=== PATIENT | female | born 1965 | race Caucasian/White ===

== ENCOUNTER 2024-05-02 09:17 | Emergency (ER) | payer OTHER, SELFPAY ==
[2024-05-02 09:18] VITALS: BP 163/108; PULSE 109; RESP 18; TEMP 35.8; O2SAT 96; BMI 19.9
[2024-05-02 09:20] VITALS: O2SAT 96
--- NOTE | 2024-05-02 09:30 | ED.VIS.DYS ---
HPI History of Present Illness Chief Complaint: Shortness of Breath Informant: patient Onset/Context/Timing Onset: Weeks (1) Context: gradual Timing: Continuous Quality: Positive for Dyspnea on exertion Worsened by: Exertion Relieved by: Rest Associated Symptoms cough, post nasal drip, ear pain and clear sputum; Negative for rhinorrhea, fever, sore throat, chills, sweats, white sputum, yellow sputum or green sputum Chest Pain: Positive for - (Heaviness over the substernal area) Narrative Narrative: Patient presents with shortness of breath that has been getting worse over the past week. Patient states it is worse with any exertion. Patient states she has to stop and rest to catch her breath. Patient states her breathing does get better with resting. Patient admits to some heaviness in her chest when this occurs. Patient admits to a cough with some clear sputum production. Patient also admits to bilateral ear pain and popping. Patient also admits to some postnasal drainage. Patient denies any fevers or chills. Patient admits to some nausea but denies any vomiting. PE Risk Factors: Negative for Cancer, OCP + Smoking + > 35, Prior DVT or PE, Recent immobilization, Recent surgery or Recent travel [facility] Medical History no medical history no medical history Home Medications ?Medication ?Instructions ?Recorded ?Last Taken ?Type azithromycin 250 mg tablet 250 mg PO DAILY #4 TABLETS 05/02/24 Unknown Rx Allergy/AdvReac Type Severity Reaction Status Date / Time No Known Allergies Allergy Verified 05/02/24 09:18 Surgical History (Updated 05/02/24 @ 09:[address] Caleb Crockett DO) Hx of appendectomy History of hysterectomy Hx of tonsillectomy Social History Smoking Status: Current some day smoker tobacco type: cigarettes ROS ROS ED Constitutional Constitutional ED: Denies chills or fever(s) Eyes Eyes: Denies blurry vision or change in vision ENT ENT ED: Denies rhinorrhea or sore throat Cardiovascular Cardiovascular: Reports chest pain; Denies palpitations Respiratory/Chest Respiratory/Chest: Reports cough and dyspnea Gastrointestinal Gastrointestinal: Reports nausea; Denies vomiting Genitourinary Genitourinary ED: Denies dysuria or hematuria Musculoskeletal Musculoskeletal: Reports neck pain; Denies back pain Integumentary Denies abscess or rash Neurologic Neurologic: Reports headache(s); Denies weakness Allergic/Immunologic Allergic/Immunologic ED: Denies mouth swelling or urticaria EXAM Physical Exam Const Vital Signs: 05/02/24 09:18 05/02/24 09:18 05/02/24 09:40 Temperature 96.5 F L Temperature Source Temporal Pulse Rate 109 H Respiratory Rate 18 Respiratory Effort Short of Breath Respiratory Depth Normal Respiratory Pattern Normal Blood Pressure 163/108 H Blood Pressure Mean 126 Pulse Ox 96 Oxygen Delivery Method Room Air Room Air 05/02/24 09:51 05/02/24 10:18 05/02/24 11:00 Temperature Temperature Source Pulse Rate 90 91 82 Respiratory Rate 18 21 H 22 H Respiratory Effort Respiratory Depth Respiratory Pattern Normal Blood Pressure 147/100 H 135/97 H Blood Pressure Mean 115 109 Pulse Ox 94 95 Oxygen Delivery Method Room Air Room Air Positive well nourished and well developed General Appearance ED: well developed and NAD HEENT Reports moist mucous membranes Neck supple and no JVD Resp normal respiratory effort and clear to auscultation bilaterally Cardio regular rate and regular rhythm GI non-tender and non-distended Palpation: soft Extremity normal to inspection General Extremety ED: Negative for edema or tenderness General Extremity: Negative for edema Neuro oriented x3, CN's II-XII intact bilaterally and no sensory deficits noted Sensorium / Orientation: alert Speech: speech normal Motor Exam: strength 5/5 throughout Psych mental status grossly normal Skin skin turgor normal MDM MDM MDM Narrative Medical decision making narrative: Differential diagnosis includes cardiac dysrhythmia, cardiac ischemia, pneumonia, pneumothorax, pulmonary embolism, viral illness, and COPD. EKG will be obtained to assess for cardiac dysrhythmia and cardiac ischemia. Chest x-ray will be obtained to assess for pneumonia and pneumothorax. CBC will be obtained to assess for leukocytosis and anemia. Basic metabolic profile will be obtained to assess for electrolyte abnormality and renal function. High-sensitivity troponin will be obtained to assess for cardiac ischemia. D-dimer will be obtained to assess for pulmonary embolism. Lab Data Attestation: I reviewed the patient's lab results. Lab results narrative: CBC was reviewed and was within normal limits. Basic metabolic profile was reviewed and was within normal limits. High-sensitivity troponin was reviewed and was normal at 52. D-dimer was reviewed and was elevated at 12.67. Labs: Laboratory Results - last 24 hr 05/02/24 09:30 WBC 8.1 RBC 5.16 Hgb 14.4 Hct 43.6 MCV 84.5 MCH 27.9 MCHC 33.0 RDW Std Deviation 38.6 RDW Coeff of Chaitanya 12.5 Plt Count 285 MPV 11.0 Immature Gran % (Auto) 0.200 Neut % (Auto) 84.7 H Lymph % (Auto) 7.9 L Waldo % (Auto) 6.4 Eos % (Auto) 0.1 Baso % (Auto) 0.7 Absolute Neuts (auto) 6.8 Absolute Lymphs (auto) 0.64 L Nucleated RBC % 0 D-Dimer Quant (PE/DVT) 12.67 H* Sodium 139 Potassium 4.0 Chloride 111 H Carbon Dioxide 21.0 Anion Gap 7 BUN 17 Creatinine 0.87 Estim Creat Clear Calc 59.98 Est GFR (MDRD) Af Amer 87 Est GFR (MDRD) Non-Af 72 BUN/Creatinine Ratio 19.6 Glucose 128 H Calcium 8.9 Troponin I High Sens 52 Radiography Chest X-Ray - ED: 1 View, Read by ED Physician, Read by Radiologist and Right Infiltrate CTA PE Study: No Evidence of PE and No Evidence of Dissection Diagnostic Testing: Clinical Impression(s) from Imaging Studies Chest X-Ray 05/02/24 09:42 IMPRESSION: Right lower lobe infiltrate with increased markings in the right upper lobe. Prominent esvin. Radiographic follow-up recommended. Electronically Signed: Frank Walter MD at 9:53 EDT , Chest CTA 05/02/24 10:15 IMPRESSION: No evidence of pulmonary embolism. Right lower lobe mass as well as dense consolidation in the right lower lobe with increased markings in the right upper lobe. Neoplastic process should should be ruled out. Small gallstones. Electronically Signed: Frank Walter MD at 11:12 EDT , Portable 1 view chest x-ray was obtained. On my independent interpretation, lung aggarwal showed a right lower lobe infiltrate and increased markings in the right upper lobe. There is normal cardiac silhouette. Bony thorax is normal. Radiologist also interpreted the x-ray and agrees. CTA of the chest was obtained. There is no evidence of pulmonary embolism. There is a right lower lobe mass and consolidation in the right lower lobe and there are increased markings in the right upper lobe. This was interpreted by the radiologist and was also independently reviewed by myself. EKG Initial EKG: Attestation: I personally reviewed and interpreted this EKG as follows: Interpretation: Sinus Rhythm (94) and No Acute Injury Pattern Comments: EKG was obtained. On my independent interpretation, it showed a normal sinus rhythm with a rate of 94. [place] interval, QRS interval, and QTc intervals were all normal. [place] was normal. There are no acute ST or T wave changes. Prior EKG tracings: not available for review Prior: No Prior Management Discussion w/another healthcare provider: Airborne Sensor Specialist (Dr. Maldonado from pulmonology) Treatment and Re-Evaluation :: Smoking cessation was discussed. Patient was given a DuoNeb aerosol here. Patient was given a dose of Rocephin and Zithromax here. Patient was advised of her findings. Case was discussed with Dr. Maldonado from pulmonology. He will follow-up with the patient as an outpatient. Patient was given his contact information and was instructed to call his office to schedule an appointment. Patient was given a prescription for Zithromax. Patient understood and was agreeable with the plan. All questions were answered. Discharge Plan Triage Chief Complaint: Shortness of Breath ED Provider: Caleb Crockett Dx/Rx/DC Orders Clinical Impression: Right lower lobe lung mass, Pneumonia Instructions: ED Pneumonia (Adult) Prescriptions: New azithromycin 250 mg tablet 250 mg PO DAILY Qty: 4 0RF Primary Care Provider: Care Physician,No Primary Referrals: Rafael Maldonado, [Med Staff - Active Staff] - 5-7 Days (Call today to schedule an appointment) NOT,DEFINED [Non-Staff] - Print Language: Yakut Disposition Disposition: Home, Self Care
--- NOTE | 2024-05-02 09:39 | EKG12_ITS ---
Test Reason : SOB Blood Pressure : / mmHG Vent. Rate : 094 BPM Atrial Rate : 094 BPM P-R Int : 150 ms QRS Dur : 072 ms QT Int : 364 ms P-R-T Axes : 069 082 003 degrees QTc Int : 455 ms Normal sinus rhythm Normal ECG Confirmed by Skip Brumfield ([id number]), international editorial producer OMAR MCKEON ([id number]) on 05/03/2024 8:04:49 AM Referred By: Confirmed By:Skip Brumfield
--- NOTE | 2024-05-02 09:42 | RAD_ITS ---
STUDY: X-RAY CHEST REASON FOR EXAM: Female, 58 years old. Shortness of breath and chest tightness. TECHNIQUE: Single AP portable view of the chest. COMPARISON: None. FINDINGS: EKG electrodes are seen. Right lower lobe infiltration. Mild increased markings in the right upper lobe. Prominence of the esvin bilaterally. There is no demonstrated pleural abnormality. Normal size heart. Normal visualized pulmonary arteries. Normal visualized aortic arch and descending thoracic aorta. There are degenerative changes of the visualized thoracic spine. Normal visualized ribs, clavicles, and shoulders. There is no demonstrated abnormality of the visualized soft tissue structures of the upper abdomen. RAD/Chest 1 View (Portable) IMPRESSION: Right lower lobe infiltrate with increased markings in the right upper lobe. Prominent esvin. Radiographic follow-up recommended. Electronically Signed: Frank Walter MD at 9:53 EDT ,
[2024-05-02] MEDS: Ipratropium/Albuterol Sulfate 3 ML AMPUL.NEB INHALATION (09:50)
[2024-05-02 09:51] VITALS: PULSE 90; RESP 18
[2024-05-02 09:51] LABS: Absolute Lymphocyte Count 0.64 X10^3/uL (0.83-4.51); Absolute Neutrophil Count 6.8 X10^3/uL (2.0-7.7); Basophil# 0.06 X10^3/uL; Basophil% 0.7 % (0-1); Eosinophil# 0.01 X10^3/uL; Eosinophils% 0.1 % (0-5); Hematocrit 43.6 % (37-47); Hemoglobin 14.4 g/dL (12.0-15.0); Lymphocyte # 0.64 X10^3/ul (0.83-4.51); Lymphocyte % 7.9 % (19-41); Mean Corpuscular Hgb 27.9 pg (27.0-32.0); Mean Corpuscular Volume 84.5 fL (81-99); Monocyte# 0.52 X10^3/uL; Monocyte% 6.4 % (0-10); NRBC Flagged by Analyzer 0 % (0-5); Neutrophil # 6.83 X10^3/uL (2.7-7.7); Neutrophil % 84.7 % (47-70); Platelet Count 285 K/mm3 (150-450); RBC Distribution Width CV 12.5 % (11.6-14.6); RBC Distribution Width SD 38.6 fl (35.1-43.9); Red Blood Count 5.16 M/mm3 (4.2-5.4); White Blood Count 8.1 K/mm3 (4.4-11.0)
[2024-05-02] MEDS: Aspirin 81 MG TAB.CHEW 324 MG PO (09:56)
[2024-05-02 10:03] LABS: Anion Gap 7 (5-15); BUN 17 mg/dL (7-18); BUN/Creat Ratio 19.6 RATIO (10-20); Calcium,Total 8.9 mg/dL (8.5-10.1); Chloride 111 mmol/L (98-107); Creatinine, Serum 0.87 mg/dL (0.55-1.02); EST Glomerular Filtration Rate 72 mL/min (>60); Est Glom Filt Rate - Afr Amer 87 mL/min (>60); Estimated Creatinine Clearance 59.98 ml/min; Glucose 128 mg/dL (74-106); Sodium Level 139 mmol/L (136-145); Troponin-I HS (w/2H Reflex) 52 pg/mL (3.0-54.0)
[2024-05-02 10:13] LABS: D-Dimer Quantitative (DVT/PE) 12.67 FEU/ug/m (0.27-0.49)
--- NOTE | 2024-05-02 10:15 | CT_ITS ---
STUDY: CTA CHEST REASON FOR EXAM: Female, 58 years old. Elevated D-dimer. Chest tightness and shortness of breath. RADIATION DOSAGE (If Supplied By Facility): CTDIvol = ( 4.35 ) mGy, DLP = ( 152.02 ) mGycm TECHNIQUE: The examination was performed with the intravenous administration of IV 100mL Isovue-370. Post-processing of the angiographic images was performed, with multiplanar reformation and 3D reconstruction. Individualized dose optimization techniques were used for this CT. COMPARISON: None. FINDINGS: Normal enhancement of the main pulmonary artery and right and left pulmonary arteries. Normal enhancement of the bilateral peripheral pulmonary arteries. There is no demonstrated pulmonary embolism. There is atherosclerotic calcification of the aortic arch with tortuosity. There is no demonstrated aortic dissection. Normal heart and pericardium. No significant coronary artery calcification seen. Normal mediastinum. Normal hilar regions. Normal visualized trachea and bronchi. There is elevation of the right hemidiaphragm. There is a 3.7 cm x 4.3 cm mass in the anterior aspect of the right lower lobe. There is also evidence of the dense consolidation in the right lower lobe. Mild degree of increased markings in the right upper lobe and right middle lobe. Normal chest wall structures. There are degenerative changes of thoracic spine. Multiple small gallstones. CT/CTA Chest W/WO Contrast IMPRESSION: No evidence of pulmonary embolism. Right lower lobe mass as well as dense consolidation in the right lower lobe with increased markings in the right upper lobe. Neoplastic process should should be ruled out. Small gallstones. Electronically Signed: Frank Walter MD at 11:12 EDT ,
[2024-05-02 10:18] VITALS: BP 147/100; PULSE 91; RESP 21; O2SAT 94
[2024-05-02] MEDS: Ceftriaxone 2 GM in 0.9% Normal Saline (50mL MB+) 50 ML IV (10:30)
[2024-05-02] MEDS: Azithromycin 500 MG in Dextrose 5%-Water (250mL Bag) 250 ML 250 MG IV (10:48)
[2024-05-02 11:00] VITALS: BP 135/97; PULSE 82; RESP 22; O2SAT 95
[2024-05-02 11:42] LABS: Reflex Troponin-HS? (from REC) Y
[2024-05-02 12:26] LABS: Troponin-I HS 64 pg/mL (3.0-54.0)
[2024-05-02 12:50] VITALS: BP 140/100; PULSE 87; RESP 18; O2SAT 93
== END 2024-05-02 12:57 | disposition home or self-care (01) ==
PROVIDERS: Emergency Provider Emergency Medicine; Visit Provider Emergency Medicine
DX: R06.02 Shortness of breath (principal); J18.9 Pneumonia, unspecified organism; F17.210 Nicotine dependence, cigarettes, uncomplicated; R91.8 Other nonspecific abnormal finding of lung field
CPT/HCPCS: 71045; 71275; 80048; 84484; 85025; 85379; 87040; 93005; 94640; 96365; 96368; 99284; Q9967; A4216; J0696

== ENCOUNTER → 2024-05-06 | Outpatient (CLI) | payer OTHER, SELFPAY ==
[2024-05-06 10:27] LABS: Platelet Count 325 K/mm3 (150-450)
[2024-05-06 10:42] LABS: International Normalized Ratio 1.2
== END | disposition home or self-care (01) ==
LOC: LAB 10:00
PROVIDERS: Referring Provider Nurse Practitioner Acute Care; Visit Provider Nurse Practitioner Acute Care
DX: I48.91 Unspecified atrial fibrillation (principal); R06.02 Shortness of breath
CPT/HCPCS: 36415; 85049; 85610; 85730

== ENCOUNTER 2024-05-10 12:48 | Inpatient (IN) | payer OTHER, SELFPAY ==
[2024-05-10] VITALS (18 sets, daily range): BP systolic 125–142; BP diastolic 76–101; PULSE 70–82; RESP 12–25; TEMP 36.4–37; O2SAT 92–98; BMI 19.4; BMI 19.9
--- NOTE | 2024-05-10 14:20 | ED.VIS.DYS ---
HPI History of Present Illness Chief Complaint: Shortness of Breath Informant: patient Narrative Narrative: Patient is a 58-year-old female presenting with pneumothorax after IR lung biopsy performed earlier today. I did monitor her pneumothorax is worsening so she is sent to the ER. She is 93% on room air does not normally wear any supplemental oxygen. She is currently on 2 L 95%. Denies any significant pain. Denies any sensation of shortness of breath. Biopsy was of the right lung and lower posterior approach was performed. Was recently admitted for pneumonia. [facility] Medical History Right lower lobe lung mass Home Medications ?Medication ?Instructions ?Recorded ?Last Taken ?Type albuterol sulfate 90 mcg/actuation 2 puff inhalation Q4H PRN 05/06/24 05/10/24 Rx aerosol inhaler (Ventolin HFA) SHORTNESS OF BREATH/WHEEZING #18 grams ibuprofen 200 mg tablet 400 mg PO Q6H PRN FEVER/PAIN 05/06/24 Unknown History levofloxacin 750 mg tablet 750 mg PO Q24H ANTIBIOTIC 05/10/24 05/10/24 History prednisone 10 mg tablet See Taper PO DAILY STEROID 05/10/24 05/10/24 History Allergy/AdvReac Type Severity Reaction Status Date / Time No Known Allergies Allergy Verified 05/10/24 09:10 Family History Mother Heart disease Father Heart disease Diabetes Surgical History Hx of appendectomy History of hysterectomy Hx of tonsillectomy Social History Smoking Status: Former smoker alcohol intake: never substance use type: does not use ROS ROS ED Constitutional Constitutional ED: Denies chills or fever(s) Cardiovascular Cardiovascular: Denies chest pain Respiratory/Chest Respiratory/Chest: Reports dyspnea; Denies cough Gastrointestinal Gastrointestinal: Denies nausea or vomiting Neurologic Neurologic: Denies headache(s) EXAM Physical Exam Const Vital Signs: 05/10/24 12:49 05/10/24 12:52 05/10/24 12:54 Temperature 97.9 F Temperature Source Temporal Pulse Rate 73 Respiratory Rate 17 Respiratory Effort Normal Non-Labored Respiratory Depth Normal Respiratory Pattern Normal Blood Pressure 125/80 H Blood Pressure Mean 95 Pulse Ox 93 Oxygen Delivery Method Room Air Room Air Oxygen Flow Rate (L/min) 05/10/24 13:41 05/10/24 13:42 05/10/24 14:23 Temperature Temperature Source Pulse Rate 78 72 74 Respiratory Rate 18 17 21 H Respiratory Effort Respiratory Depth Respiratory Pattern Blood Pressure 130/90 H 130/90 H 142/101 H Blood Pressure Mean 103 103 114 Pulse Ox 92 92 94 Oxygen Delivery Method Room Air Room Air Nasal Cannula Oxygen Flow Rate (L/min) 1 05/10/24 14:49 05/10/24 15:00 05/10/24 15:06 Temperature Temperature Source Pulse Rate 78 82 Respiratory Rate 25 H 18 Respiratory Effort Respiratory Depth Respiratory Pattern Blood Pressure 133/92 H 141/76 H Blood Pressure Mean 105 97 Pulse Ox 97 93 93 Oxygen Delivery Method Nasal Cannula Room Air Room Air Oxygen Flow Rate (L/min) 2 05/10/24 16:26 Temperature Temperature Source Pulse Rate 76 Respiratory Rate 12 Respiratory Effort Respiratory Depth Respiratory Pattern Blood Pressure 138/97 H Blood Pressure Mean 110 Pulse Ox 93 Oxygen Delivery Method Oxygen Flow Rate (L/min) Positive well nourished and well developed General Appearance ED: well developed Eyes PERRL and EOMs intact bilaterally Neck supple and no JVD Chest Wall Chest Narrative: No chest wall crepitus appreciated. Bandage of the right lower posterior back from biopsy sites, no active bleeding. Resp normal respiratory effort Resp Narrative: Diminished breath sounds on the right side Cardio regular rate and regular rhythm Extremity normal to inspection General Extremety ED: Negative for edema General Extremity: Negative for edema Neuro oriented x3 Sensorium / Orientation: alert Psych mental status grossly normal Skin no wounds and skin turgor normal MDM MDM MDM Narrative Medical decision making narrative: Patient is evaluated for iatrogenic pneumothorax. She is hemodynamically stable but is requiring some supplemental oxygen..Thor vent device placed for treatment of her pneumothorax. Patient tolerated procedure well with no immediate complications. Procedure performed by IR nurse practitioner under my direct supervision. On repeat chest x-ray patient has improvement of her pneumothorax but still present. She is ambulating goes down to 87%. Patient be admitted for further treatment and management of her pneumothorax. She is agreeable this plan of care. Case discussed with my physician, Dr. Wiseman. Radiography Diagnostic Testing: Clinical Impression(s) from Imaging Studies Chest X-Ray 05/10/24 15:10 IMPRESSION: Placement of right thoracostomy tube with decrease in right pneumothorax. No other change. Electronically Signed: Andrei Riley MD at 15:29 EDT , Procedures Other Procedures Procedure(s): Chest tube placement Patient placed on 3 to 4 L of oxygen and continuous telemetry monitoring. She is given 2.5 mg IV diazepam for comfort. Procedure performed by Azalea Ruiz nurse practitioner under my direct supervision. [employer] vent pneumothorax kit utilized. Area anesthetized with 1% lidocaine without epinephrine. Once adequate analgesia was achieved, #11 blade used to make a 1 cm vertical incision over the second/third intercostal space of the midclavicular line. Out trocar advancement does meet some resistance. Hemostats then used to get through to the pleural cavity. After that the trocar placed without any difficulty. Once in the pleural cavity and confirmed with diaphragm movement trocars removed and catheter was advanced further. Patient tolerated procedure well with no immediate complication. Discharge Plan Triage Chief Complaint: Shortness of Breath ED Provider: Meena Mckay Dx/Rx/DC Orders Clinical Impression: Pneumothorax after biopsy, Shortness of breath, Right lower lobe lung mass Primary Care Provider: Care Physician,No Primary Disposition Disposition: Acute Care Hospital [facility] Discharge Date/Time: 05/10/24 17:04
[2024-05-10] MEDS: Midazolam 2 MG/2 ML Syringe IV (14:31)
[2024-05-10] MEDS: Lidocaine 1% (20 ml mdv) 20 ML Vial 10 ML INFILT (14:35)
--- NOTE | 2024-05-10 15:10 | RAD_ITS ---
STUDY: X-RAY CHEST REASON FOR EXAM: Female, 58 years old. Placement of thoracostomy tube. TECHNIQUE: Single frontal view of the chest. COMPARISON: Earlier in the day. FINDINGS: Right thoracostomy tube placed with substantial decrease in pneumothorax which now is approximately 9 mm of separation of visceral and parietal pleura in the right apex. Stable chest otherwise with no new or acute findings No abnormality of the visualized soft tissue structures of the upper abdomen. RAD/Chest 1 View (Portable) IMPRESSION: Placement of right thoracostomy tube with decrease in right pneumothorax. No other change. Electronically Signed: Andrei Riley MD at 15:29 EDT ,
--- NOTE | 2024-05-10 16:25 | HP.PCM.HOS_ITS ---
HPI - General General Date of Admission: 05/10/24 Date of Service: 05/10/24 Chief Complaint: R sided pneumonthorax HPI Narrative ARYA HUGGINS, is a 58-year-old female with a right lower lobe lung mass who presented to [facility] ED 05/10/2024 due to a pneumothorax after CT guided biopsy. She was initially monitored however pneumothorax worsen so she was sent to ED where she had thoracostomy tube placed, she was 93% on room air and 95% on 2 L. Given patient had chest tube placement hospitalist contacted for admission. Patient reports that she has had shortness of breath since when she initially presented to the ED, was given azithromycin but that did not significantly help, patient was switched to levofloxacin and prednisone which she started Thursday and has been feeling slightly better, does note some shortness of breath on ambulation. Denies any other specific complaints [facility] Medical History (Updated 05/10/24 @ 16:[address] Dimple Wiseman MD) Right lower lobe lung mass Home Medications ?Medication ?Instructions ?Recorded ?Last Taken ?Type albuterol sulfate 90 mcg/actuation 2 puff inhalation Q4H PRN 05/06/24 05/10/24 Rx aerosol inhaler (Ventolin HFA) SHORTNESS OF BREATH/WHEEZING #18 grams ibuprofen 200 mg tablet 400 mg PO Q6H PRN FEVER/PAIN 05/06/24 Unknown History levofloxacin 750 mg tablet 750 mg PO Q24H ANTIBIOTIC 05/10/24 05/10/24 History prednisone 10 mg tablet See Taper PO DAILY STEROID 05/10/24 05/10/24 History Allergy/AdvReac Type Severity Reaction Status Date / Time No Known Allergies Allergy Verified 05/10/24 09:10 Family History Mother Heart disease Father Heart disease Diabetes Surgical History History of hysterectomy Hx of appendectomy Hx of tonsillectomy Social History Smoking Status: Former smoker alcohol intake: never substance use type: does not use ROS ROS Narrative General: Denies fever/chills HENT: Denies headache, denies stuffy nose, denies sore throat EYES: Denies changes in vision Resp: Denies cough, shortness of breath on ambulation Cardiac: Denies chest pain GI: Denies abdominal pain, denies changes in bowel, denies nausea/vomiting : Denies changes in urination Extremity: Denies swelling MSK: Denies weakness Neuro: Denies any numbness/tingling Heme: Denies any bleeding or bruising Skin: Denies rashes Psychiatric: No complaints voiced Vital Signs Vital Signs Vital Signs: 05/10/24 12:49 05/10/24 12:52 05/10/24 12:54 Temperature 97.9 F Temperature Source Temporal Pulse Rate 73 Respiratory Rate 17 Respiratory Effort Normal Non-Labored Respiratory Depth Normal Respiratory Pattern Normal Blood Pressure 125/80 H Blood Pressure Mean 95 Pulse Ox 93 Oxygen Delivery Method Room Air Room Air Oxygen Flow Rate (L/min) 05/10/24 13:41 05/10/24 13:42 05/10/24 14:23 Temperature Temperature Source Pulse Rate 78 72 74 Respiratory Rate 18 17 21 H Respiratory Effort Respiratory Depth Respiratory Pattern Blood Pressure 130/90 H 130/90 H 142/101 H Blood Pressure Mean 103 103 114 Pulse Ox 92 92 94 Oxygen Delivery Method Room Air Room Air Nasal Cannula Oxygen Flow Rate (L/min) 1 05/10/24 14:49 05/10/24 15:00 05/10/24 15:06 Temperature Temperature Source Pulse Rate 78 82 Respiratory Rate 25 H 18 Respiratory Effort Respiratory Depth Respiratory Pattern Blood Pressure 133/92 H 141/76 H Blood Pressure Mean 105 97 Pulse Ox 97 93 93 Oxygen Delivery Method Nasal Cannula Room Air Room Air Oxygen Flow Rate (L/min) 2 Weight Weight: 51.3 kg Body Mass Index (BMI) 19.4 Physical Exam Narrative General: Alert, oriented, no apparent distress HEENT: Atraumatic, normocephalic Eyes: Anicteric, normal conjunctiva, extraocular movements grossly intact Neck: Supple Respiratory: Slightly diminished on right,, normal respiratory effort Cardiovascular: Regular rate and rhythm GI: Soft, nontender, nondistended Extremities: No edema Musculoskeletal: Moving all extremities Neuro: No overt focal neurological deficits Skin: No rashes appreciated Psych: Cooperative Results Imaging Radiology Impression Chest X-Ray 05/10/24 15:10 IMPRESSION: Placement of right thoracostomy tube with decrease in right pneumothorax. No other change. Electronically Signed: Andrei Riley MD at 15:29 EDT Reading Location ID and State: [address] [place] [address] , Service support , Assessment & Plan Assessment/Plan (1) Pneumothorax after biopsy: (2) Right lower lobe lung mass: PLAN: Plan # Hypoxia secondary to right-sided pneumothorax post CT-guided biopsy -Chest tube placement in the ED -Xray in AM -Pain control -Will need ambulatory pulse ox prior to discharge -2L O2 to help with further resolution of pneumothorax -C/s surgery if pt not improving or any further concerns arise -Presently type of chest tube works without any need for any tubing or water seal/negative pressure externally # Recent diagnosis of pneumonia -Continue patient's levofloxacin -Continue prednisone -Albuterol as needed # Mass of right lung -Underwent CT-guided biopsy today -Follow-up pulm outpatient #Former tobacco use -Advise cessation #DVT ppx: SCDs Dimple Wiseman MD Charges/Coding Visit Charges Inpatient E&M: 72162 Init Hosp L1
--- NOTE | 2024-05-10 16:37 | NURSING ---
MED SURG OBS LYN RT SIDED PNEUMOTHORAX
[2024-05-10 17:09] LABS: Hematocrit 42.8 % (37-47); Hemoglobin 13.8 g/dL (12.0-15.0); Mean Corp Hgb Conc 32.2 g/dL (32-36); Mean Corpuscular Hgb 27.1 pg (27.0-32.0); Mean Corpuscular Volume 84.1 fL (81-99); Mean Platelet Vol. 11.3 fl (6.2-12.0); Platelet Count 254 K/mm3 (150-450); RBC Distribution Width CV 12.7 % (11.6-14.6); RBC Distribution Width SD 38.9 fl (35.1-43.9); Red Blood Count 5.09 M/mm3 (4.2-5.4); White Blood Count 9.7 K/mm3 (4.4-11.0)
[2024-05-10 17:26] LABS: AST(SGOT) 15 U/L (15-37); Alanine Aminotransfer ALT/SGPT 51 U/L (13-56); Albumin, Serum 3.1 g/dL (3.2-5.0); Alkaline Phosphatase 125 U/L (45-117); Anion Gap 7 (5-15); BUN 23 mg/dL (7-18); BUN/Creat Ratio 26.2 RATIO (10-20); Calcium,Total 8.9 mg/dL (8.5-10.1); Chloride 108 mmol/L (98-107); Creatinine, Serum 0.88 mg/dL (0.55-1.02); EST Glomerular Filtration Rate 71 mL/min (>60); Est Glom Filt Rate - Afr Amer 86 mL/min (>60); Estimated Creatinine Clearance 57.81 ml/min; Glucose 130 mg/dL (74-106); Potassium 4.4 mmol/L (3.5-5.1); Protein, Total 6.1 g/dL (6.4-8.2); Sodium Level 140 mmol/L (136-145)
[2024-05-10] MEDS: Acetaminophen 500 MG Tablet 1000 MG PO (18:29)
[2024-05-10] MEDS: oxyCODONE 5 MG Tablet PO ×2 (18:36→22:29)
[2024-05-11] VITALS (12 sets, daily range): BP systolic 115–129; BP diastolic 80–91; PULSE 64–106; RESP 18; TEMP 36.1–36.6; O2SAT 94–100
[2024-05-11] MEDS: Acetaminophen 500 MG Tablet 1000 MG PO ×3 (06:05→21:24)
[2024-05-11] MEDS: oxyCODONE 5 MG Tablet PO ×4 (08:18→20:31)
[2024-05-11] MEDS: levoFLOXacin 750 MG Tablet PO (08:19)
[2024-05-11] MEDS: predniSONE 10 MG Tablet 20 MG PO (08:19)
--- NOTE | 2024-05-11 09:05 | EX.PCM.CONCC ---
Assessment & Plan Assessment/Plan (1) Pneumothorax after biopsy: PLAN: Plan RECOMMENDATIONS: 1. Chest tube to wall suction as ordered. 2. Obtain follow-up chest x-ray in 2 hours. 3. If no improvement in pneumothorax, consider large bore chest tube. IMPRESSIONS: 1. Iatrogenic pneumothorax The patient sustained an iatrogenic pneumothorax following CT-guided lung biopsy due to a right lower lobe lung mass. Thora vent was subsequently placed. Unfortunately, the patient was never initiated on wall suction overnight. Therefore, she continues to have a persistent pneumothorax this morning. I personally placed the patient to wall suction at -20 cm of water. I would recommend that we continue to monitor her on wall suction. I will obtain a follow-up chest x-ray in 2 hours. Ultimately, if the pneumothorax does not begin to improve/resolve with wall suction, she may require insertion of a larger bore chest tube. This note was generated with [employer] dictation software. It may contain incorrect words, spelling, and punctuation that were not noted in checking the note before signing. HPI Consult Data Date of Consult: 05/11/24 HPI Narrative Reason for Consultation: Iatrogenic pneumothorax HPI Narrative: The patient is a 58-year-old female, with a history as outlined below, who presented to the emergency department after she sustained an iatrogenic pneumothorax following CT-guided lung biopsy. The patient had been evaluated in the pulmonary medicine clinic on May 06 after she had a CTA chest completed in the emergency department, which demonstrated a right lower lobe lung mass. She does have a [id number] smoking history, having apparently quit completely in April. The initial chest x-ray postbiopsy demonstrated a small lateral pneumothorax. An additional chest x-ray obtained 1 hour later demonstrated increased size of the pneumothorax with enlarging pleural separation. The patient was then transferred to the emergency department, where a Thora vent was placed. Postprocedure, the patient was admitted to the progressive care unit. Although the patient was hooked up to a Pleur-evac system, the patient was never initiated on wall suction overnight. Her chest x-ray from this morning continued to demonstrate an apical pneumothorax. Therefore, following my initial evaluation of the patient, I placed her to wall suction, with significant bubbling noted in the Pleur-evac. The patient feels well otherwise from a clinical perspective. [facility] Medical History Right lower lobe lung mass Home Medications ?Medication ?Instructions ?Recorded ?Last Taken ?Type albuterol sulfate 90 mcg/actuation 2 puff inhalation Q4H PRN 05/06/24 05/10/24 Rx aerosol inhaler (Ventolin HFA) SHORTNESS OF BREATH/WHEEZING #18 grams ibuprofen 200 mg tablet 400 mg PO Q6H PRN FEVER/PAIN 05/06/24 Unknown History levofloxacin 750 mg tablet 750 mg PO Q24H ANTIBIOTIC 05/10/24 05/10/24 History prednisone 10 mg tablet See Taper PO DAILY STEROID 05/10/24 05/10/24 History Allergy/AdvReac Type Severity Reaction Status Date / Time No Known Allergies Allergy Verified 05/10/24 09:10 Family History Mother Heart disease Father Heart disease Diabetes Surgical History Hx of appendectomy History of hysterectomy Hx of tonsillectomy Social History Smoking Status: Former smoker alcohol intake: never substance use type: does not use ROS ROS Narrative 10 systems were reviewed with pertinent positives as noted in the HPI above. Physical Exam Const alert and no apparent distress General Appearance: cooperative HEENT normocephalic and head/scalp atraumatic Eyes PERRL, EOMs intact bilaterally and conjunctivae normal Neck supple General: trachea midline Chest Chest: chest tube Resp normal respiratory effort Resp Narrative: Multichamber airleak noted in Pleur-evac after initiating wall suction. Auscultation: diminished lung sounds Cardio regular rate and regular rhythm GI normal to inspection, nondistended, normoactive bowel sounds Extremity no clubbing, cyanosis or edema Skin no rashes or lesions noted Neuro CN's II-XII intact bilaterally and no focal motor deficits Psych cooperative and affect normal Lab / Micro Data 05/10/24 16:54 05/10/24 16:54 Labs: Laboratory Results - last 24 hr 05/10/24 16:54: WBC 9.7, RBC 5.09, Hgb 13.8, Hct 42.8, MCV 84.1, MCH 27.1, MCHC 32.2, RDW Std Deviation 38.9, RDW Coeff of Chaitanya 12.7, Plt Count 254, MPV 11.3, Sodium 140, Potassium 4.4, Chloride 108 H, Carbon Dioxide 25.0, Anion Gap 7, BUN 23 H, Creatinine 0.88, Estim Creat Clear Calc 57.81, Est GFR (MDRD) Af Amer 86, Est GFR (MDRD) Non-Af 71, BUN/Creatinine Ratio 26.2 H, Glucose 130 H, Calcium 8.9, Total Bilirubin 0.40, AST 15, ALT 51, Alkaline Phosphatase 125 H, Total Protein 6.1 L, Albumin 3.1 L, Globulin 3.0, Albumin/Globulin Ratio 1.0 Imaging Radiology Impression Chest X-Ray 05/10/24 15:10 IMPRESSION: Placement of right thoracostomy tube with decrease in right pneumothorax. No other change. Electronically Signed: Andrei Riley MD at 15:29 EDT Reading Location ID and State: [facility] / [place] , Service support , Charges/Coding Visit Charges Inpatient E&M: 84213 Init Hosp L3
--- NOTE | 2024-05-11 10:28 | RAD_ITS ---
STUDY: X-RAY CHEST REASON FOR EXAM: Female, 58 years old. Follow-up after pneumothorax. Chest tube to wall suction. TECHNIQUE: Single frontal view of the chest. COMPARISON: Earlier in the day. FINDINGS: Stable right thoracostomy tube. Small right apical pneumothorax with approximately 1 cm of separation of visceral and parietal pleura. Stable cardiomegaly, aortic tortuosity, diffuse interstitial pattern and patchy opacities in the right lower lobe and the periphery of the right midlung zone. No abnormality of the visualized soft tissue structures of the upper abdomen. RAD/Chest 1 View (Portable) IMPRESSION: Slight decrease in right apical pneumothorax. No other change. Electronically Signed: Andrei Riley MD at 10:43 EDT ,
--- NOTE | 2024-05-11 11:19 | PCM.PN.HOSP ---
Subjective Subjective Doing well, breathing well but better now that the the chest tube is been placed on suction Objective Data Objective Data Vital Signs: Vital Signs Temp Pulse Resp BP Pulse Ox O2 Del Method O2 Flow Rate 97.7 F L 106 H 18 115/80 96 Nasal Cannula 2 05/11/24 09:51 05/11/24 09:51 05/11/24 09:51 05/11/24 09:51 05/11/24 09:51 05/11/24 09:51 05/11/24 09:51 Oxygen Flow Rate (L/min) 2 Oxygen Delivery Method Nasal Cannula Weight: 116 lb 2.938 oz Body Mass Index (BMI) 19.9 Intake & Output: Intake and Output for Last 24 Hours 05/10/24 05/11/24 05/12/24 03:59 03:59 03:59 Intake Total 480 / 480 200 / 200 Output Total 0 / 0 Balance 480 / 480 200 / 200 Lab / Micro Data 05/10/24 16:54 05/10/24 16:54 Labs: Laboratory Results - last 24 hr 05/10/24 16:54: WBC 9.7, RBC 5.09, Hgb 13.8, Hct 42.8, MCV 84.1, MCH 27.1, MCHC 32.2, RDW Std Deviation 38.9, RDW Coeff of Chaitanya 12.7, Plt Count 254, MPV 11.3, Sodium 140, Potassium 4.4, Chloride 108 H, Carbon Dioxide 25.0, Anion Gap 7, BUN 23 H, Creatinine 0.88, Estim Creat Clear Calc 57.81, Est GFR (MDRD) Af Amer 86, Est GFR (MDRD) Non-Af 71, BUN/Creatinine Ratio 26.2 H, Glucose 130 H, Calcium 8.9, Total Bilirubin 0.40, AST 15, ALT 51, Alkaline Phosphatase 125 H, Total Protein 6.1 L, Albumin 3.1 L, Globulin 3.0, Albumin/Globulin Ratio 1.0 Radiography Diagnostic Testing: Radiology Impression Chest X-Ray 05/10/24 15:10 IMPRESSION: Placement of right thoracostomy tube with decrease in right pneumothorax. No other change. Electronically Signed: Andrei Riley MD at 15:29 EDT , Chest X-Ray 05/11/24 10:28 IMPRESSION: Slight decrease in right apical pneumothorax. No other change. Electronically Signed: Andrei Riley MD at 10:43 EDT Reading Location ID and State: [address] [place] [address] , Service support , Physical Exam Narrative General: Alert, Oriented x3, Cooperative, No apparent distress HEENT: Atraumatic, PERRLA, EOMI, Normocephalic Oral: Moist Mucosa Neck: Supple, No JVD Lungs: Diminished, Normal air movement, No rhonchi, No wheeze, No rales Cardiovascular: Regular rate, Regular Rhythm, Normal S1, Normal S2, No murmurs Abdomen: Soft, Non Tender, Non-Distended, No Hepato-splenomegaly Extremities: No edema, Capillary Refill Less than 3 Seconds Skin: No rashes, No breakdown Musculoskeletal: No Tenderness to Palpation of Joints or Extremities Neurological: No focal neurological deficits, Motor Exam 5/5 strength throughout, Sensory exam intact to light touch and pain Psych/Mental Status: Normal Affect, Appropriate Assessment & Plan Assessment/Plan (1) Pneumothorax after biopsy: (2) Right lower lobe lung mass: PLAN: Plan 1. Acute hypoxia secondary to a right pneumothorax after CT-guided biopsy of right lung mass ? Will recheck chest x-ray this afternoon ? Continue with wall suction for 24 hours ? Will proceed with waterseal tomorrow morning with follow-up x-ray ? Appreciate pulmonology and general surgery's assistance ? She has been having what was initially thought to be pneumonia however she is about a pack a day smoker since she was 21 DVT: SCDs Charges/Coding Visit Charges Inpatient E&M: 17591 Subs Hosp L2
--- NOTE | 2024-05-11 12:07 | EX.PCM.CON.S ---
Assessment & Plan Assessment/Plan (1) Pneumothorax after biopsy: PLAN: I have been consulted in conjunction with Dr. Ward to manage patient's right apical pneumothorax post biopsy. Patient has a thora vent device in place by radiology. Device is currently hooked to wall suction. Continue to have right chest device hooked to wall suction for 24 hours. Will repeat a CXR tomorrow morning. Order has been placed. We will continue to closely monitor this patient. I did inform the patient that if the device does not allow for re-expansion of the lung, she may need a larger bore chest tube placed. Patient verbally understood. Patient and her have had the opportunity to ask and have questions answered. Patient verbally understands the plan. Thank you for allowing us to participate in this patient's care. HPI Consult Data Date of Consult: 05/11/24 HPI Narrative Reason for Consultation: Pneumothorax HPI Narrative: ARYA HUGGINS, is a 58 F who presents with a right pneumothorax s/p CT guided core needle lung biopsy in radiology on 05/10/24. Patient had pneumonia and was evaluated in the ED on 05/02/24. Patient has a CTA completed in the ED which demonstrated a right lower lobe mass and dense consolidation of the right lower lobe. Patient was also losing weight unintentionally. Patient was then scheduled for a right lung biopsy on 05/10. Upon follow-up chest x-ray after completion of the biopsy, it was noted the patient developed a small right pneumothorax. Patient was observed for 4 hours on 3 liters of nasal canula oxygen. Repeat CXR was obtained demonstrating the pneumothorax had increased in size. Patient was then transferred to the ED. Patient then had a thora vent device placed in the ED by radiology to assist with reexpansion of the lung. Repeat CXR demonstrated a slight improvement in the pneumothorax. Patient notes her shortness of breath is slightly improved. She notes frustration as the device that was placed to reexpand the lung is newer and she felt that the staff did not have the proper training on this device. Dr. Maldonado did evaluate the patient and chest tube was placed to wall suction this morning. Repeat CXR at 10:28, did show slight decrease in right apical pneumothorax. [facility] Medical History Right lower lobe lung mass Home Medications ?Medication ?Instructions ?Recorded ?Last Taken ?Type albuterol sulfate 90 mcg/actuation 2 puff inhalation Q4H PRN 05/06/24 05/10/24 Rx aerosol inhaler (Ventolin HFA) SHORTNESS OF BREATH/WHEEZING #18 grams ibuprofen 200 mg tablet 400 mg PO Q6H PRN FEVER/PAIN 05/06/24 Unknown History levofloxacin 750 mg tablet 750 mg PO Q24H ANTIBIOTIC 05/10/24 05/10/24 History prednisone 10 mg tablet See Taper PO DAILY STEROID 05/10/24 05/10/24 History Allergy/AdvReac Type Severity Reaction Status Date / Time No Known Allergies Allergy Verified 05/10/24 09:10 Family History Mother Heart disease Father Heart disease Diabetes Surgical History Hx of appendectomy History of hysterectomy Hx of tonsillectomy Social History Smoking Status: Former smoker alcohol intake: never substance use type: does not use ROS Constitutional Constitutional: Reports poor appetite and weight loss Eyes Eyes: Reports systems reviewed and no addt'l complaints, except as documented ENT HEENT: Reports systems reviewed and no addt'l complaints, except as documented Cardiovascular Cardiovascular: Reports systems reviewed and no addt'l complaints, except as documented Respiratory/Chest Respiratory/Chest: Reports productive cough and shortness of breath at rest Gastrointestinal Gastrointestinal: Reports systems reviewed and no addt'l complaints, except as documented Genitourinary Genitourinary: Reports systems reviewed and no addt'l complaints, except as documented Musculoskeletal Musculoskeletal: Reports systems reviewed and no addt'l complaints, except as documented Integumentary Integumentary: Reports systems reviewed and no addt'l complaints, except as documented Neurologic Neurologic: Reports systems reviewed and no addt'l complaints, except as documented Psychiatric Psychiatric: Reports systems reviewed and no addt'l complaints, except as documented Endocrine Endocrinology: Reports systems reviewed and no addt'l complaints, except as documented Hematologic/Lymphatic Hematologic/Lymphatic: Reports systems reviewed and no addt'l complaints, except as documented Allergic/Immunologic Allergic/Immunologic: Reports systems reviewed and no addt'l complaints, except as documented Physical Exam Const alert, oriented x3 and no apparent distress HEENT normocephalic Eyes PERRL Neck full ROM Lymph Lymphatic: no lymphadenopathy noted Chest Chest Narrative: Right chest- thora vent device intact with suction tubing connected to the wall Resp Auscultation: diminished lung sounds right (apex) Cardio Rate: tachycardic GI normal to inspection, nondistended, normoactive bowel sounds no CVA tenderness Back/Spine no CVA tenderness Extremity normal to inspection Skin no rashes or lesions noted Neuro no focal motor deficits and no sensory deficits noted Psych mental status grossly normal and thought process normal Lab / Micro Data 05/10/24 16:54 05/10/24 16:54 Labs: Laboratory Results - last 24 hr 05/10/24 16:54: WBC 9.7, RBC 5.09, Hgb 13.8, Hct 42.8, MCV 84.1, MCH 27.1, MCHC 32.2, RDW Std Deviation 38.9, RDW Coeff of Chaitanya 12.7, Plt Count 254, MPV 11.3, Sodium 140, Potassium 4.4, Chloride 108 H, Carbon Dioxide 25.0, Anion Gap 7, BUN 23 H, Creatinine 0.88, Estim Creat Clear Calc 57.81, Est GFR (MDRD) Af Amer 86, Est GFR (MDRD) Non-Af 71, BUN/Creatinine Ratio 26.2 H, Glucose 130 H, Calcium 8.9, Total Bilirubin 0.40, AST 15, ALT 51, Alkaline Phosphatase 125 H, Total Protein 6.1 L, Albumin 3.1 L, Globulin 3.0, Albumin/Globulin Ratio 1.0 Imaging Radiology Impression Chest X-Ray 05/10/24 15:10 IMPRESSION: Placement of right thoracostomy tube with decrease in right pneumothorax. No other change. Electronically Signed: Andrei Riley MD at 15:29 EDT Reading Location ID and State: [facility] / [place] , Service support , Chest X-Ray 05/11/24 10:28 IMPRESSION: Slight decrease in right apical pneumothorax. No other change. Electronically Signed: Andrei Riley MD at 10:43 EDT Reading Location ID and State: [facility] / [place] , Service support , Charges/Coding Visit Charges Office Visits / Consults: [id number] IP Consult L3
--- NOTE | 2024-05-11 14:40 | CHAPLAIN ---
Type of Pastoral Visit _x__ Initial Visit ___ Follow-up Visit ___ On-call Visit ___ General Patient Visit ___ Spiritual Assessment ___ Family Conference ___ Bereavement ___ Rapid Response ___ Code Blue ___ Other (describe below) Pastoral Care Referral From __x_ Patient ___ Family ___ Nurse ___ Physician ___ Search Manager ___ Polls Or Surveys Interviewer ___ Other (describe below) Sacrament/Intervention _x__ Active listening ___ Anointing ___ Episcopalian ___ Bereavement ___ Communion ___ Marleny exploration ___ _x__ Life review ___ Prayer ___ Reconciliation ___ Sacrament of Sick _x__ Supportive presence ___ Wedding ___ Other (describe below) Pastoral Comments patient was honest to say that breathing is a challenge and that she has had a busy day of testing and visitors; however pt is also willing to continue talking and gives a adequate description of her health situation, the challenge of the last several weeks, feelings of overwhelmed and some apprehension with waiting on a full diagnosis; pt admits to causing her problems but has quit smoking cold turkey and amazed at how easy that was; pt was expressing her struggles of being on the other side of the bed now and not the caregiver; talked about these honest and normal feelings and thoughts; pt states that she has good emotional stability and is okay spiritually; pt is not connected to a marleny group but might consider how this might help in the future; pt asked this plate stacker to put me on your prayer list and pt was added to hospital prayers
--- NOTE | 2024-05-11 15:44 | NURSING ---
Per communication order; patient attempted to lay flat for 15minutes (could only go down to 20-30 degrees and tolerated for only 10 minutes), patient tolerated left and right sides for 15 minutes each. Patient unable to lay prone.
--- NOTE | 2024-05-11 15:55 | CASEMGMT ---
Discharge Planning PCP list created from the [facility] website. Madelaine Palencia DC Planning Asst.
--- NOTE | 2024-05-11 16:13 | CASEMGMT ---
RN?CM?POWER LINEWORKER?CM?to room to meet with patient for initial transition planning/care coordination?assessment.?RN?CM?introduced self and role at [facility].? Pt voices understanding and consents to?assessment?at this time.? Pt resting in bed in no distress at this time.? Pt is A/O at this time and answers all questions appropriately.?? Care providers, pharmacy, and demographics verified/updated at this time. PCP: No PCP. Provided w/local PCP directory Specialists: Yesenia Gamino NP-pulmonology Preferred Pharmacy:[facility], [place] Insurance: [facility] DRE Prescription Benefit:?Yes. Pt states her Rx card and she got a new one, but it is in her apartment and she has not been able to get it since SOB started and she is staying w/her friend. She states she will be able to get it @ dc and take it to [facility], if needed. Living Will/HPOA:? Has HCPOA, who is her friend, Chris Nolasco. She states she does not wish for Chris to be added to her contact list at this time, but states her friend, Jon, radha is listed on her contact list, knows how to reach Chris, if needed. She states Chris knows she is in the hospital and states he does have a copy of the HCPOA. LNOK: Friend/Jon. Friend/Chris--HCPOA Living Arrangements: Lives alone in 2nd-floor apt w/flight of steps (about 15-18 steps). States is independent when @ her baseline and works full-time. She states since all this started with the pneumonia and I got so SOB a couple weeks ago, I've been staying w/my friend Jon, since he only has a few steps to go up and he also has central AC. She states she has been off of work for a couple of weeks, but does have long-term disability, if needed. She denies needing financial resources/assistance at this time. Transportation:?Pt states drives self and states no transportation concerns at this time.? Friend, Jon, will take her home @ d/c. DME: Has a pulse ox. No home O2. Denies DME preference @ dc if she needs O2 @ dc. Made aware [facility] is affiliated w/[facility] and is agreeable to [facility]. Per Adrianne @ [employer], they are In-network w/pt's insurance. HHC/SNF: No hx of either. No needs identified. Pt wishes to return home and states has no concerns with going home at time of discharge.? Pt states does not smoke or drink ETOH.??CM?to follow for home oxygen needs and any further discharge planning/needs.? Pt voices no further concerns/needs at this time.? Advised pt to ask for?CM?if any further questions/concerns/needs arise.? Voices understanding. PLAN:?? Karma BSN?RN?CM
--- NOTE | 2024-05-11 16:24 | CASEMGMT ---
RN?CM?COMMERCIAL ENGINEER?CM?to room to meet with patient for initial transition planning/care coordination?assessment.?RN?CM?introduced self and role at [facility].? Pt voices understanding and consents to?assessment?at this time.? Pt resting in bed in no distress at this time.? Pt is A/O at this time and answers all questions appropriately.?? Care providers, pharmacy, and demographics verified/updated at this time. PCP: No PCP. Provided w/local PCP directory Specialists: Yesenia Gamino NP-pulmonology Preferred Pharmacy:[facility], [place] Insurance: [facility] DRE Prescription Benefit:?Yes. Pt states her Rx card and she got a new one, but it is in her apartment and she has not been able to get it since SOB started and she is staying w/her friend. She states she will be able to get it @ dc and take it to [facility], if needed. Living Will/HPOA:? Has HCPOA, who is her friend, Chris Nolasco. She states she does not wish for Chris to be added to her contact list at this time, but states her friend, Jon, radha is listed on her contact list, knows how to reach Chris, if needed. She states Chris knows she is in the hospital and states he does have a copy of the HCPOA. LNOK: Friend/Jon. Friend/Chris--HCPOA Living Arrangements: Lives alone in 2nd-floor apt w/flight of steps (about 15-18 steps). States is independent when @ her baseline and works full-time. She states since all this started with the pneumonia and I got so SOB a couple weeks ago, I've been staying w/my friend Jon, since he only has a few steps to go up and he also has central AC. She states she has been off of work for a couple of weeks, but does have long-term disability, if needed. She denies needing financial resources/assistance at this time. Transportation:?Pt states drives self and states no transportation concerns at this time.? Friend, Jon, will take her home @ d/c. DME: Has a pulse ox. No home O2. Denies DME preference @ dc if she needs O2 @ dc. Made aware [facility] is affiliated w/[facility] and is agreeable to [facility]. Per Adrianne @ [employer], they are In-network w/pt's insurance. HHC/SNF: No hx of either. No needs identified. Pt wishes to return home and states has no concerns with going home at time of discharge.? Follow for home oxygen. Pt voices no further concerns/needs at this time. PLAN:??Home to friends' home. Follow for possible Home o2. Green sheet on chart w/instructions. Karma BSN?RN?CM
--- NOTE | 2024-05-11 20:30 | NURSING ---
Addendum entered by Mesha Palomares 05/11/24 23:23: when assisting patient back to bed, patient c/o chest pressure at chest tube site. right side medial area near armpit crepitus now noted. patient has breath sounds but still diminished. Original Note: on initial assessment, patient breathing unlabored and easy, no drainage in tube, breath sounds diminished but heard in all aggarwal and no crepitus noted. patient asked to get up to bathroom, this RN assisted patient to bathroom standby assist with chest tube and oxygen. when patient got back to bed, there was bright red bloody drainage draining into canister. 43cc noted and documented. dr davies notified-stat cbc. dr schwartz notified-orders for stat cxr and bump patient up to 4L from 2L to reach 100%
--- NOTE | 2024-05-11 21:30 | NURSING ---
patient noted to have 40cc bright red blood drainage into canister.
--- NOTE | 2024-05-11 21:47 | RAD_ITS ---
INDICATION: crepitus in the setting of chest tube EXAMINATION/TECHNIQUE: X-RAY - XR Chest 1 View AP portable. 9:46 PM COMPARISON: 05/11/2024 10:25 AM FINDINGS: LINES/DEVICES: Right chest tube in unchanged position. LUNGS: Small right apical pneumothorax, unchanged. Opacities in the right mid and lower lung not significantly changed. MEDIASTINUM: Unremarkable. CARDIAC SILHOUETTE: Not enlarged. BONES AND SOFT TISSUES: Mild subcutaneous air right lateral chest wall is similar to prior. RAD/Chest 1 View (Portable) IMPRESSION: Small right apical pneumothorax unchanged with right chest tube in place. No change in right basilar opacities. Electronically Signed: Judy Chen MD at 22:50 EDT ,
--- NOTE | 2024-05-11 22:02 | CT_ITS ---
INDICATION: bleeding from chest tube EXAMINATION: CT CHEST WITHOUT CONTRAST - CT Chest W/O Contrast Injection TECHNIQUE: Helically acquired images were obtained of the chest. The protocol utilizes one or more of the following dose reduction techniques: automated exposure control, adjustment of mA and/or kV according to patient size,and/or use of iterative reconstruction technique. IV Contrast dosage and agent: None. RADIATION DOSAGE (If Supplied By Facility): CTDIvol = ( 7.50 ) mGy, DLP = ( 239.85 ) mGycm COMPARISON: CT chest 05/02/2024 FINDINGS: LUNGS: Focal rounded opacity in the right upper lobe laterally adjacent to the chest tube, and was not present on the prior. Large masslike consolidation right lower lobe unchanged mild hazy opacities in the lungs with septal thickening, greater on the right similar to increased. LARGE AIRWAYS: Unremarkable. PLEURA: Small caliber chest tube on the right courses inferiorly along the lateral chest with tip at the level of the minor fissure. Small right pneumothorax less than 10% volume. Likely a very small component right pleural effusion which is similar to prior. MEDIASTINUM: Unremarkable. HEART: Not enlarged. CORONARY ARTERIES: Coronary artery calcification is seen. AORTA/VESSELS: No aortic aneurysm. ESOPHAGUS: Unremarkable. UPPER ABDOMEN: No acute findings. BONES/SOFT TISSUES: Sclerotic vertebral body lesion L1 unchanged. OTHER/LINES: Mild subcutaneous air along the right chest wall. CT/Chest without Contrast IMPRESSION: Right chest tube in place with small right hydropneumothorax. Likely a small pleural effusion component is probably unchanged compared to the prior. Small focal opacity right upper lobe adjacent to the chest tube may be an area of atelectasis or contusion, or pneumonia. Hazy lung opacities with septal thickening greater on the right similar to increased compared to prior suggests a component of pulmonary edema, versus lymphangitic spread of tumor. Large masslike consolidation right lower lobe, presumed mass, unchanged. Sclerotic vertebral body at L1 unchanged presumed metastatic disease.. Electronically Signed: Judy Chen MD at 23:38 EDT ,
[2024-05-11 23:23] LABS: Absolute Neutrophil Count 11.3 X10^3/uL (2.0-7.7); Basophil# 0.04 X10^3/uL; Basophil% 0.3 % (0-1); Hematocrit 43.1 % (37-47); Lymphocyte % 3.9 % (19-41); Mean Corp Hgb Conc 32.5 g/dL (32-36); Mean Corpuscular Hgb 27.4 pg (27.0-32.0); Mean Corpuscular Volume 84.3 fL (81-99); Mean Platelet Vol. 11.1 fl (6.2-12.0); Monocyte# 0.99 X10^3/uL; Monocyte% 7.7 % (0-10); NRBC Flagged by Analyzer 0 % (0-5); Neutrophil # 11.33 X10^3/uL (2.7-7.7); Neutrophil % 87.8 % (47-70); POSITIVE DIFFERENTIAL YES; Platelet Count 274 K/mm3 (150-450); RBC Distribution Width CV 12.6 % (11.6-14.6); RBC Distribution Width SD 38.4 fl (35.1-43.9); Red Blood Count 5.11 M/mm3 (4.2-5.4); White Blood Count 12.9 K/mm3 (4.4-11.0)
--- NOTE | 2024-05-11 23:23 | MDS.RN ---
patient noted to have 40cc of bright red blood drainage into canister. documented and noted.
--- NOTE | 2024-05-11 23:25 | NURSING ---
Addendum entered by Mesha Palomares 05/12/24 00:37: note should have been timed for 2229 Original Note: patient noted to have 37cc of bright red blood drainage into tubing. documented and noted. transported to stat ct with charge nurse and working supervisor. transported back to room with no complications. patient chest tube placed back on -20 suction and despite adding humidification to patients 4L of oxygen she is refusing the 4L but will allow me to place her on 2L due to her stating she is breathing better and more comfortably on the 2L. stat cxr was screenshot by charge nurse and sent to dr schwartz. patient given water and a fan to help with comfort needs at this time. patient still has crepitus noted at right medial side under armpit near breast, no spreading at this time. patient breath sounds noted in all aggarwal but still diminished.
[2024-05-12] VITALS (12 sets, daily range): BP systolic 121–137; BP diastolic 83–98; PULSE 71–110; RESP 18–20; TEMP 35.6–36.7; O2SAT 89–96
--- NOTE | 2024-05-12 00:05 | NURSING ---
dr mcdonald paged of patients ct chest results. read back via telephone. orders to turn patient off suction for twenty minutes and turn suction back on. page back in an hour if drainage is still excessive. will monitor and notify.
--- NOTE | 2024-05-12 00:35 | NURSING ---
turned patient back on to -20 suction. will monitor output. patient resting in bed with eyes closed. no needs at this time
[2024-05-12] MEDS: oxyCODONE 5 MG Tablet PO ×5 (01:09→20:24)
--- NOTE | 2024-05-12 01:38 | NURSING ---
recheck after replacing patient back to -20 suction, no more drainage noted in canister at this time. patient sleeping on 2L nc with no distress noted. patient continues to have diminished lung sounds and crepitus noted on the right medial side near breast.
--- NOTE | 2024-05-12 05:48 | RAD_ITS ---
EXAM: XR CHEST, 1 VIEW CLINICAL INDICATION: pneumothorax -- PORTABLE TECHNIQUE: Frontal view of the chest. COMPARISON: XR Chest dated 05/11/2024 FINDINGS: LUNGS AND PLEURAL SPACES: Stable less than 5% right apical pneumothorax. Improving right lower lobe opacity. Small right pleural effusion. HEART: Normal heart size. MEDIASTINUM: No mediastinal or hilar mass. BONES/JOINTS: No acute abnormality. TUBES, LINES AND DEVICES: Right-sided pleural vac catheter remains in place. RAD/Chest 1 View (Portable) IMPRESSION: Improving opacification of the right lower lobe. Stable trace right apical pneumothorax. Electronically Signed: Karlos Oconnell MD at 9:22 EDT ,
[2024-05-12] MEDS: Acetaminophen 500 MG Tablet 1000 MG PO ×3 (06:11→21:34)
--- NOTE | 2024-05-12 07:13 | PCM.PN.INT ---
Assessment & Plan Assessment/Plan (1) Pneumothorax after biopsy: PLAN: Plan RECOMMENDATIONS: 1. Chest tube to wall suction, while awaiting repeat chest x-ray this morning. 2. If pneumothorax is resolved, chest tube can be transitioned to waterseal. 3. Alternatively, if pneumothorax is unresolved or enlarging, she will require a larger bore chest tube. 4. CT biopsy results were conveyed to the patient. Please place referral to Dr. Sanchez at [facility], per patient request. IMPRESSIONS: 1. Iatrogenic pneumothorax The patient sustained an iatrogenic pneumothorax following CT-guided lung biopsy due to a right lower lobe lung mass. Thora vent was subsequently placed. The patient has been maintained on wall suction since yesterday morning. Repeat chest x-ray this morning is pending. The results of her CT-guided lung biopsy were conveyed to the patient. Questions were answered accordingly. She is wishing to pursue treatment at [facility] with Dr. Sanchez. If the patient's pneumothorax is resolved on chest imaging this morning, the chest tube can be placed to waterseal. Ultimately, if the pneumothorax does not begin to improve/resolve with wall suction, she may require insertion of a larger bore chest tube. This note was generated with [employer] dictation software. It may contain incorrect words, spelling, and punctuation that were not noted in checking the note before signing. Subjective Subjective The patient was seen and examined at the bedside this morning. Events from the last 24 hours have been reviewed. The patient is currently afebrile, hemodynamically stable and maintaining appropriate oxygen saturations on 2 L/min via nasal cannula. Repeat chest x-ray from this morning is pending. The patient seems quite anxious. She reported that she had shortness of breath overnight along with serosanguineous output from the chest tube. I did personally conveyed the results of the patient's biopsy, which revealed moderately differentiated adenocarcinoma. Questions were answered regarding the diagnosis. The patient reported that she is interested in pursuing cancer treatment with Dr. Sanchez at [facility]. Objective Data Objective Data The patient's most recent lab work, culture data and imaging studies have all been personally reviewed. Vital Signs: Vital Signs Temp Pulse Resp BP Pulse Ox O2 Del Method O2 Flow Rate 96.1 F L 71 18 137/98 H 96 Nasal Cannula 2 05/12/24 04:00 05/12/24 04:00 05/12/24 04:00 05/12/24 04:00 05/12/24 04:00 05/12/24 04:00 05/12/24 04:00 Oxygen Flow Rate (L/min) 2 Oxygen Delivery Method Nasal Cannula Weight: 116 lb 2.938 oz Body Mass Index (BMI) 19.9 Intake & Output: Intake and Output for Last 24 Hours 05/10/24 05/11/24 05/12/24 23:59 23:59 23:59 Intake Total 480 / 480 800 / 1240 440 / 440 Output Total 0 / 0 120 / 120 Balance 480 / 480 680 / 1120 440 / 440 Lab / Micro Data Attestation: I reviewed the patient's lab results. 05/11/24 23:10 05/10/24 16:54 Labs: Laboratory Results - last 24 hr 05/11/24 23:10: WBC 12.9 H, RBC 5.11, Hgb 14.0, Hct 43.1, MCV 84.3, MCH 27.4, MCHC 32.5, RDW Std Deviation 38.4, RDW Coeff of Chaitanya 12.6, Plt Count 274, MPV 11.1, Immature Gran % (Auto) 0.300, Neut % (Auto) 87.8 H, Lymph % (Auto) 3.9 L, [place] % (Auto) 7.7, Eos % (Auto) 0.0, Baso % (Auto) 0.3, Absolute Neuts (auto) 11.3 H, Absolute Lymphs (auto) 0.50 L, Nucleated RBC % 0 Radiography Diagnostic Testing: Radiology Impression Chest X-Ray 05/11/24 10:28 IMPRESSION: Slight decrease in right apical pneumothorax. No other change. Electronically Signed: Andrei Riley MD at 10:43 EDT , Chest X-Ray 05/11/24 21:47 IMPRESSION: Small right apical pneumothorax unchanged with right chest tube in place. No change in right basilar opacities. Electronically Signed: Judy Chen MD at 22:50 EDT , Chest CT 05/11/24 22:02 IMPRESSION: Right chest tube in place with small right hydropneumothorax. Likely a small pleural effusion component is probably unchanged compared to the prior. Small focal opacity right upper lobe adjacent to the chest tube may be an area of atelectasis or contusion, or pneumonia. Hazy lung opacities with septal thickening greater on the right similar to increased compared to prior suggests a component of pulmonary edema, versus lymphangitic spread of tumor. Large masslike consolidation right lower lobe, presumed mass, unchanged. Sclerotic vertebral body at L1 unchanged presumed metastatic disease.. Electronically Signed: Judy Chen MD at 23:38 EDT , Physical Exam Const alert and no apparent distress General Appearance: cooperative HEENT normocephalic and head/scalp atraumatic Eyes PERRL, EOMs intact bilaterally and conjunctivae normal Neck supple General: trachea midline Chest Chest: chest tube Resp normal respiratory effort Resp Narrative: No airleak noted in the Pleur-evac this morning. Auscultation: diminished lung sounds Cardio regular rate and regular rhythm GI normal to inspection, nondistended, normoactive bowel sounds Extremity no clubbing, cyanosis or edema Skin no rashes or lesions noted Neuro CN's II-XII intact bilaterally and no focal motor deficits Psych cooperative and affect normal Charges/Coding Visit Charges Inpatient E&M: 47393 Subs Hosp L2
--- NOTE | 2024-05-12 07:37 | PCM.PN.SRG ---
Subjective Subjective Patient had some bright red blood per Thora vent on the right during the night. This has improved patient on -20 suction no airleak on the Pleur-evac. Chest x-ray appears the lung is expanded. Patient is currently on 4 to 5 L of oxygen for 96% they are working on weaning. Objective Data Objective Data Vital Signs: Vital Signs Temp Pulse Resp BP Pulse Ox O2 Del Method O2 Flow Rate 96.1 F L 71 18 137/98 H 96 Nasal Cannula 2 05/12/24 04:00 05/12/24 04:00 05/12/24 04:00 05/12/24 04:00 05/12/24 04:00 05/12/24 04:00 05/12/24 04:00 Oxygen Flow Rate (L/min) 2 Oxygen Delivery Method Nasal Cannula Weight: 116 lb 2.938 oz Body Mass Index (BMI) 19.9 Intake & Output: Intake and Output for Last 24 Hours 05/10/24 05/11/24 05/12/24 23:59 23:59 23:59 Intake Total 480 / 480 800 / 1240 440 / 440 Output Total 0 / 0 120 / 120 Balance 480 / 480 680 / 1120 440 / 440 Lab / Micro Data 05/11/24 23:10 05/10/24 16:54 Labs: Laboratory Results - last 24 hr 05/11/24 23:10: WBC 12.9 H, RBC 5.11, Hgb 14.0, Hct 43.1, MCV 84.3, MCH 27.4, MCHC 32.5, RDW Std Deviation 38.4, RDW Coeff of Chaitanya 12.6, Plt Count 274, MPV 11.1, Immature Gran % (Auto) 0.300, Neut % (Auto) 87.8 H, Lymph % (Auto) 3.9 L, [place] % (Auto) 7.7, Eos % (Auto) 0.0, Baso % (Auto) 0.3, Absolute Neuts (auto) 11.3 H, Absolute Lymphs (auto) 0.50 L, Nucleated RBC % 0 Radiography Diagnostic Testing: Radiology Impression Chest X-Ray 05/11/24 10:28 IMPRESSION: Slight decrease in right apical pneumothorax. No other change. Electronically Signed: Andrei Riley MD at 10:43 EDT , Chest X-Ray 05/11/24 21:47 IMPRESSION: Small right apical pneumothorax unchanged with right chest tube in place. No change in right basilar opacities. Electronically Signed: Judy Chen MD at 22:50 EDT , Chest CT 05/11/24 22:02 IMPRESSION: Right chest tube in place with small right hydropneumothorax. Likely a small pleural effusion component is probably unchanged compared to the prior. Small focal opacity right upper lobe adjacent to the chest tube may be an area of atelectasis or contusion, or pneumonia. Hazy lung opacities with septal thickening greater on the right similar to increased compared to prior suggests a component of pulmonary edema, versus lymphangitic spread of tumor. Large masslike consolidation right lower lobe, presumed mass, unchanged. Sclerotic vertebral body at L1 unchanged presumed metastatic disease.. Electronically Signed: Judy Chen MD at 23:38 EDT , Physical Exam Const alert, oriented x3 and no apparent distress Chest Chest Narrative: Right chest- thora vent device intact with suction tubing connected to Pleur-evac -20 no airleak Resp normal respiratory effort Cardio regular rate Assessment & Plan Assessment/Plan (1) Pneumothorax after biopsy: PLAN: Will plan to change to waterseal as a chest x-ray does not really show a pneumothorax this morning. Will plan to check a chest x-ray tomorrow morning. Bharti Marroquin M.D. Pager: [phone] [facility] [address] [place] [address], [facility], [address] [place] [address] Office: [phone] Charges/Coding Visit Charges Inpatient E&M: 05095 Subs Hosp L2
[2024-05-12] MEDS: predniSONE 10 MG Tablet 20 MG PO (08:13)
[2024-05-12] MEDS: levoFLOXacin 750 MG Tablet PO (08:13)
--- NOTE | 2024-05-12 10:24 | PCM.PN.HOSP ---
Subjective Subjective Had some serosanguineous drainage in her tubing. There is still stable trace right apical pneumothorax and she was transition to waterseal Objective Data Objective Data Vital Signs: Vital Signs Temp Pulse Resp BP Pulse Ox O2 Del Method O2 Flow Rate 97.9 F 101 H 18 124/93 H 95 Nasal Cannula 3 05/12/24 10:02 05/12/24 10:02 05/12/24 10:02 05/12/24 10:02 05/12/24 10:02 05/12/24 10:02 05/12/24 10:02 Oxygen Flow Rate (L/min) 3 Oxygen Delivery Method Nasal Cannula Weight: 116 lb 2.938 oz Body Mass Index (BMI) 19.9 Intake & Output: Intake and Output for Last 24 Hours 05/11/24 05/12/24 05/13/24 03:59 03:59 03:59 Intake Total 480 / 480 1240 / 1240 Output Total 0 / 0 120 / 120 Balance 480 / 480 1120 / 1120 Lab / Micro Data 05/11/24 23:10 05/10/24 16:54 Labs: Laboratory Results - last 24 hr 05/11/24 23:10: WBC 12.9 H, RBC 5.11, Hgb 14.0, Hct 43.1, MCV 84.3, MCH 27.4, MCHC 32.5, RDW Std Deviation 38.4, RDW Coeff of Chaitanya 12.6, Plt Count 274, MPV 11.1, Immature Gran % (Auto) 0.300, Neut % (Auto) 87.8 H, Lymph % (Auto) 3.9 L, [place] % (Auto) 7.7, Eos % (Auto) 0.0, Baso % (Auto) 0.3, Absolute Neuts (auto) 11.3 H, Absolute Lymphs (auto) 0.50 L, Nucleated RBC % 0 Radiography Diagnostic Testing: Radiology Impression Chest X-Ray 05/11/24 10:28 IMPRESSION: Slight decrease in right apical pneumothorax. No other change. Electronically Signed: Andrei Riley MD at 10:43 EDT Reading Location ID and State: [address] [place] [address] , Service support , Chest X-Ray 05/11/24 21:47 IMPRESSION: Small right apical pneumothorax unchanged with right chest tube in place. No change in right basilar opacities. Electronically Signed: Judy Chen MD at 22:50 EDT , Chest CT 05/11/24 22:02 IMPRESSION: Right chest tube in place with small right hydropneumothorax. Likely a small pleural effusion component is probably unchanged compared to the prior. Small focal opacity right upper lobe adjacent to the chest tube may be an area of atelectasis or contusion, or pneumonia. Hazy lung opacities with septal thickening greater on the right similar to increased compared to prior suggests a component of pulmonary edema, versus lymphangitic spread of tumor. Large masslike consolidation right lower lobe, presumed mass, unchanged. Sclerotic vertebral body at L1 unchanged presumed metastatic disease.. Electronically Signed: Judy Chen MD at 23:38 EDT , Chest X-Ray 05/12/24 05:48 IMPRESSION: Improving opacification of the right lower lobe. Stable trace right apical pneumothorax. Electronically Signed: Karlos Oconnell MD at 9:22 EDT , Physical Exam Narrative General: Alert, Oriented x3, Cooperative, No apparent distress HEENT: Atraumatic, PERRLA, EOMI, Normocephalic Oral: Moist Mucosa Neck: Supple, No JVD Lungs: Diminished, Normal air movement, No rhonchi, No wheeze, No rales Cardiovascular: Regular rate, Regular Rhythm, Normal S1, Normal S2, No murmurs Abdomen: Soft, Non Tender, Non-Distended, No Hepato-splenomegaly Extremities: No edema, Capillary Refill Less than 3 Seconds Skin: No rashes, No breakdown Musculoskeletal: No Tenderness to Palpation of Joints or Extremities Neurological: No focal neurological deficits, Motor Exam 5/5 strength throughout, Sensory exam intact to light touch and pain Psych/Mental Status: Normal Affect, Appropriate Assessment & Plan Assessment/Plan (1) Pneumothorax after biopsy: (2) Right lower lobe lung mass: PLAN: Plan 1. Acute hypoxia secondary to a right pneumothorax after CT-guided biopsy of right lung mass with adenocarcinoma ? Chest x-ray this morning does not show worsening pneumothorax ? Continue with waterseal for 24 hours and repeat chest x-ray in the morning ? Appreciate pulmonology and general surgery's assistance ? She has been having what was initially thought to be pneumonia however she is about a pack a day smoker since she was 21 and biopsy results demonstrated an adenocarcinoma ? She will be referred to [facility] oncology per her request on discharge DVT: SCDs Charges/Coding Visit Charges Inpatient E&M: 22824 Subs Hosp L2
[2024-05-13] MEDS: oxyCODONE 5 MG Tablet PO ×4 (00:32→17:01)
[2024-05-13 05:30] VITALS: BP 133/91; PULSE 108; RESP 18; TEMP 36.3; O2SAT 94
[2024-05-13] MEDS: Acetaminophen 500 MG Tablet 1000 MG PO ×2 (05:44→13:54)
--- NOTE | 2024-05-13 05:55 | RAD_ITS ---
INDICATION: chest tube -- portable EXAMINATION/TECHNIQUE: X-RAY - XR Chest 1 View COMPARISON: Prior study dated: 05/12/2024 FINDINGS: LINES/DEVICES: Right-sided chest tube remains in place. LUNGS: The lungs are well expanded. Trace right apical pneumothorax is without change from prior. Persistent right basilar airspace opacity. Bashir B lines are noted, similar to previous. Small right pleural effusion. MEDIASTINUM AND CARDIOVASCULAR STRUCTURES: Cardiac silhouette not enlarged. Central airways and mediastinal contour are unremarkable. BONES AND SOFT TISSUES: No acute abnormality. RAD/Chest 1 View (Portable) IMPRESSION: Similar appearance to previous. Trace right apical pneumothorax. Mild interstitial edema with small right pleural effusion. Persistent right basilar opacity. Electronically Signed: Dipesh Spivey MD at 6:54 EDT ,
[2024-05-13 06:59] VITALS: O2SAT 94
[2024-05-13] MEDS: 0.9% Saline Lock 10 ML Syringe IV (08:25)
[2024-05-13] MEDS: LORazepam 2 MG/ML Syringe 1 MG IV (08:25)
--- NOTE | 2024-05-13 10:43 | PCM.PN.SRG ---
Subjective Subjective Patient reports difficulty breathing when her back spasms and she says this has been happening since yesterday. She was having a hard time breathing this morning when I was talking to her. She denies fevers or chills or severe pain. Objective Data Objective Data Vital Signs: Vital Signs Temp Pulse Resp BP Pulse Ox O2 Del Method O2 Flow Rate 97.3 F L 108 H 18 133/91 H 94 Nasal Cannula 3 05/13/24 05:30 05/13/24 05:30 05/13/24 05:30 05/13/24 05:30 05/13/24 06:59 05/13/24 06:59 05/13/24 06:59 Oxygen Flow Rate (L/min) 3 Oxygen Delivery Method Nasal Cannula Weight: 116 lb 2.938 oz Body Mass Index (BMI) 19.9 Intake & Output: Intake and Output for Last 24 Hours 05/11/24 05/12/24 05/13/24 23:59 23:59 23:59 Intake Total 800 / 1240 440 / 740 500 / 500 Output Total 120 / 120 Balance 680 / 1120 440 / 740 500 / 500 Lab / Micro Data 05/11/24 23:10 05/10/24 16:54 Radiography Diagnostic Testing: Radiology Impression Chest X-Ray 05/13/24 05:55 IMPRESSION: Similar appearance to previous. Trace right apical pneumothorax. Mild interstitial edema with small right pleural effusion. Persistent right basilar opacity. Electronically Signed: Dipesh Spivey MD at 6:54 EDT Reading Location ID and State: [facility] / [place] Tel , Service support , Physical Exam Const oriented x3 and no apparent distress Resp normal respiratory effort Cardio regular rate and regular rhythm Assessment & Plan Assessment/Plan (1) Pneumothorax after biopsy: PLAN: The patient is still hypoxic and requiring 3 L of O2. The morning chest x-ray did not show any change in the pneumothorax in the apical region and it was very small. She was on waterseal overnight with no expansion of the pneumothorax. I removed the chest tube at bedside today. I will obtain a chest x-ray in 4 hours. If the chest x-ray does not show any worsening she can be discharged home if okay with medicine but she does remain hypoxic and this is likely due to her lung pathology not from the pneumothorax. Basim Ward MD Pager: [facility] [address] [place] [address], [address] [place] [phone] Office:
[2024-05-13 11:52] VITALS: BP 107/76; PULSE 110; RESP 16; TEMP 37; O2SAT 93
[2024-05-13] MEDS: levoFLOXacin 750 MG Tablet PO (11:55)
--- NOTE | 2024-05-13 11:55 | RAD_ITS ---
INDICATION: chest tube removed EXAMINATION/TECHNIQUE: X-RAY - XR Chest 2 Views COMPARISON: Previous of the same date done earlier. FINDINGS: LINES/DEVICES: Right chest tube has been removed. Probable trace of right apical pneumothorax unchanged. LUNGS: Right lower lobe infiltrate unchanged the prior exam. No definite pleural effusions. MEDIASTINUM AND CARDIOVASCULAR STRUCTURES: Cardiac silhouette not enlarged. Central airways and mediastinal contour are unremarkable. BONES AND SOFT TISSUES: Unremarkable. RAD/Chest PA and Lateral IMPRESSION: 1. Status post removal of right chest tube. 2. Minimal right apical pneumothorax. 3. Right lower lung infiltrate unchanged. Electronically Signed: Sundar Goldberg MD at 14:16 EDT ,
[2024-05-13] MEDS: predniSONE 10 MG Tablet 20 MG PO (11:56)
[2024-05-13 13:39] VITALS: O2SAT 88; O2SAT 89; O2SAT 90
--- NOTE | 2024-05-13 14:12 | CASEMGMT ---
Social Work SW spoke w/pt in room, her friend Jon is in the room, holding her hand. SW offered support to pt. SW remains available for any additional support if needed. MICHAEL Vick
--- NOTE | 2024-05-13 14:17 | CASEMGMT ---
JOSH CM NOTE: Pt qualifies for O2 @ 2 l/m continuously. Script obtained from Dr Jones and sent to [facility] via [employer]. Call placed to Nora @ [facility] and she was made aware pt discharging home today and that she will be going to her friend, Jon's, home. JOSH JASSO to room. Pt made aware of home O2 set-up process and questions answered. She and friend, Jon, who is at bedside verify pt does have a pulse ox. She denies having further discharge needs at this time. Karma WHALENN RN CM
[2024-05-13 15:11] VITALS: BP 109/75; PULSE 118; RESP 17; TEMP 36.9; O2SAT 94
--- NOTE | 2024-05-13 15:17 | DCINST_ITS ---
Discharge Instructions Diet Discharge Diet: No restrictions Activity Discharge Activity: Return to Normal Activity Return to work on:: 05/23/24 Dressing / Incision Call your doctor if you observe: Fever of 101 or Higher, Shortness of breath, Dizziness, Fainting spells, Swelling in the ankles, Chest pain and Increased palpitations (irregular heartbeat) Follow Up Care Test Results: Test results from this visit will be discussed in further detail at your follow- up appointment, if applicable. Discharge Plan Admission Admit Date/Time: 05/10/24 16:28 Attending Provider: Nile Jones Primary Care Provider: Care Physician,No Primary Consulting Providers: Dimple Wiseman; Basim Ward Discharge Orders/Prescriptions Prescriptions: New oxycodone 5 mg Tablet 5 mg PO Q4H PRN PRN (Reason: Pain Score 4-10) 3 Days Qty: 10 0RF Continued ibuprofen 200 mg tablet 400 mg PO Q6H PRN (Reason: FEVER/PAIN ) albuterol sulfate [Ventolin HFA] 90 mcg/actuation HFA aerosol inhaler 2 puff inhalation Q4H PRN (Reason: SHORTNESS OF BREATH/WHEEZING ) Qty: 18 6RF prednisone 10 mg tablet See Taper PO DAILY Taper: Prednisone Taper 40 mg WITH BREAKFAST for 3 Days 30 mg WITH BREAKFAST for 3 Days 20 mg WITH BREAKFAST for 3 Days 10 mg WITH BREAKFAST for 3 Days Rx Instructions: START DATE: 05/06/24 levofloxacin 750 mg tablet 750 mg PO Q24H Rx Instructions: START DATE: 05/07/24 Referrals / Follow Up: Aamir Sanchez DO [Med Staff - Active Staff] - Within 2 Weeks Care Physician,No Primary [Primary Care Provider] - Disposition Disposition (needs filled in before D/C Order can be placed): Home, Self Care
--- NOTE | 2024-05-13 15:57 | DS.PCM_ITS ---
Providers Date of Admission: 05/10/24 Primary Care Physician: Na Primary Care Phys Consultations 05/10/24 17:30 Consult: Physician Advisor / Pulmonary Medicine Routine Consulting Provider: Intensivists/Pulmonary Med Reason for Consult: pneumothorax s/p Heimlich valve in ED EMERGENT Consult: No Notified: Yes Date Notified: 05/10/24 Time Notified: 06:36 Method of Notification: Answering Service 05/11/24 11:21 Consult: General Surgery Routine Consulting Provider: Basim Ward Reason for Consult: ptx EMERGENT Consult: No Notified: Yes Date Notified: 05/11/24 Time Notified: 11:22 Method of Notification: Verbal Reason For Visit: R SIDED PNEUMOTHORAX Diagnosis Discharge Diagnosis (1) Pneumothorax after biopsy: Status: Acute Code(s): J95.811 - Postprocedural pneumothorax Medications at Discharge Home Medications albuterol sulfate 90 mcg/actuation aerosol inhaler (Ventolin HFA) 2 puff inhalation Q4H PRN SHORTNESS OF BREATH/WHEEZING #18 grams 05/06/24 ibuprofen 200 mg tablet 400 mg PO Q6H PRN FEVER/PAIN 05/06/24 levofloxacin 750 mg tablet 750 mg PO Q24H ANTIBIOTIC 05/10/24 prednisone 10 mg tablet See Taper PO DAILY STEROID 05/10/24 oxycodone 5 mg tablet 5 mg PO Q4H PRN PRN Pain Score 4-10 3 days #10 tabs 05/13/24 Hospital Course Operations None Procedures - (CT GUIDED CORE NEEDLE LUNG BIOPSY) Summary of Care Provided Minutes Spent on Discharge: 38 Hospital Course: Per HPI: ARYA HUGGINS, is a 58-year-old female with a right lower lobe lung mass who presented to [facility] ED 05/10/2024 due to a pneumothorax after CT guided biopsy. She was initially monitored however pneumothorax worsen so she was sent to ED where she had thoracostomy tube placed, she was 93% on room air and 95% on 2 L. Given patient had chest tube placement hospitalist contacted for admission. Patient reports that she has had shortness of breath since 624 when she initially presented to the ED, was given azithromycin but that did not significantly help, patient was switched to levofloxacin and prednisone which she started Thursday and has been feeling slightly better, does note some shortness of breath on ambulation. Denies any other specific complaints Hospital Course: 1. Iatrogenic pneumothorax after a CT-guided lung biopsy with resultant adenocarcinoma?58-year-old female with a history of tobacco abuse presented to the hospital for a CT-guided biopsy of a lung mass in the right lung. Initially she was being treated as pneumonia but as it was not improving and given her history of tobacco abuse a lung biopsy was ordered. The pathology preliminarily did come back with an adenocarcinoma and so she will see oncology as an outpatient. The biopsy procedure resulted in a right pneumothorax and chest tube had to be placed. For the first 24 hours she was placed to suction with improvement and resolution of her pneumothorax and then she was transition to waterseal for 24 hours with continued resolution of her pneumothorax and then the chest tube was pulled this morning and chest x-ray several hours after the fact was negative for increase in the pneumothorax. She is remaining on 2 L nasal cannula so she had an ambulatory pulse ox, I have reviewed the oxygen testing, and this patient qualifies for the home equipment and portability. The patient is mobile in the home and the community. Will continue with Levaquin and prednisone as she had previously ordered as an outpatient. She does appear to have severe anxiety which is understandable given the underlying diagnosis and she has been having some spasms and pain at the biopsy site. Will discharge with 3 days of oxycodone but I encouraged her to find a PCP as well as to consider therapy in light of her cancer diagnosis which may be beneficial in the long-term for assisting with her anxiety. I discussed with her and her the plan for discharge today she expressed understanding of the risk benefits of going home and would like to go home today. Physical Exam Narrative General: Alert, Oriented x3, Cooperative, No apparent distress HEENT: Atraumatic, PERRLA, EOMI, Normocephalic Oral: Moist Mucosa Neck: Supple, No JVD Lungs: Diminished, Normal air movement, No rhonchi, No wheeze, No rales Cardiovascular: Regular rate, Regular Rhythm, Normal S1, Normal S2, No murmurs Abdomen: Soft, Non Tender, Non-Distended, No Hepato-splenomegaly Extremities: No edema, Capillary Refill Less than 3 Seconds Skin: No rashes, No breakdown Musculoskeletal: No Tenderness to Palpation of Joints or Extremities Neurological: No focal neurological deficits, Motor Exam 5/5 strength throughout, Sensory exam intact to light touch and pain Psych/Mental Status: Normal Affect, Appropriate Weight / BMI Weight Weight: 116 lb 2.938 oz Body Mass Index (BMI) 19.9 ABG / Lab / Microbiology Data 05/11/24 23:10 05/10/24 16:54 Radiography Diagnostic Testing: Radiology Impression Chest X-Ray 05/13/24 05:55 IMPRESSION: Similar appearance to previous. Trace right apical pneumothorax. Mild interstitial edema with small right pleural effusion. Persistent right basilar opacity. Electronically Signed: Dipesh Spivey MD at 6:54 EDT , Chest X-Ray 05/13/24 11:55 IMPRESSION: 1. Status post removal of right chest tube. 2. Minimal right apical pneumothorax. 3. Right lower lung infiltrate unchanged. Electronically Signed: Sundar Goldberg MD at 14:16 EDT , D/C Instructions Discharge Diet: No restrictions Return to work on: 05/23/24 Call your doctor if you observe: Fever of 101 or Higher, Shortness of breath, Dizziness, Fainting spells, Swelling in the ankles, Chest pain and Increased palpitations (irregular heartbeat) Meaningful Use Info Meaningful Use Meaningful Use Diagnoses (Choose all that apply): None applicable Ischemic Stroke Statin Dosing Therapy Reference: STATIN DOSE THERAPY REFERENCE: * Patients > 75 years receive moderate or high dose statin therapy. * Patients 75 years or YOUNGER should receive HIGH intensity statin dose unless contraindicated. You will be required to document reason for non-treatment if statin daily dose does not meet guidelines. HIGH DOSE STATIN THERAPY DAILY Atorvastatin > than or = to 40 mg Rosuvastatin > than or = to 20 mg Amlodipine + Atorvastatin > than or = to 2.5/40 mg Ezetimibe + Simvastatin 10/80 mg Simvastatin 80mg Discharge Plan Admission Admit Date/Time: 05/10/24 16:28 Attending Provider: Nile Jones Primary Care Provider: Care Physician,No Primary Consulting Providers: Dimple Wiseman; Basim Ward Discharge Orders/Prescriptions Prescriptions: New oxycodone 5 mg Tablet 5 mg PO Q4H PRN PRN (Reason: Pain Score 4-10) 3 Days Qty: 10 0RF Continued ibuprofen 200 mg tablet 400 mg PO Q6H PRN (Reason: FEVER/PAIN ) albuterol sulfate [Ventolin HFA] 90 mcg/actuation HFA aerosol inhaler 2 puff inhalation Q4H PRN (Reason: SHORTNESS OF BREATH/WHEEZING ) Qty: 18 6RF prednisone 10 mg tablet See Taper PO DAILY Taper: Prednisone Taper 40 mg WITH BREAKFAST for 3 Days 30 mg WITH BREAKFAST for 3 Days 20 mg WITH BREAKFAST for 3 Days 10 mg WITH BREAKFAST for 3 Days Rx Instructions: START DATE: 05/06/24 levofloxacin 750 mg tablet 750 mg PO Q24H Rx Instructions: START DATE: 05/07/24 Referrals / Follow Up: Aamir Sanchez DO [Med Staff - Active Staff] - Within 2 Weeks Care Physician,No Primary [Primary Care Provider] - Disposition Disposition (needs filled in before D/C Order can be placed): Home, Self Care Charges/Coding Visit Charges Inpatient E&M: 31661 Disch Hosp >30min
== END 2024-05-13 17:06 | disposition home or self-care (01) | DRG 199 ==
LOC: ED 15:00 → PCU 17:04
PROVIDERS: Internal Medicine; Admitting Provider Internal Medicine; Emergency Provider Emergency Medicine; Visit Provider Family Medicine
DX: J95.811 Postprocedural pneumothorax (principal); J18.9 Pneumonia, unspecified organism; C34.91 Malignant neoplasm of unspecified part of right bronchus or lung; Z87.891 Personal history of nicotine dependence
CPT/HCPCS: 36415; 71045; 71046; 71250; 80053; 85025; 85027; 94668; 94762; 99252; 99283; J7030; A4216; G0463

== ENCOUNTER → 2024-05-10 | Outpatient (CLI) | payer OTHER, SELFPAY ==
[2024-05-10] VITALS (17 sets, daily range): BP systolic 105–152; BP diastolic 68–103; PULSE 75–83; RESP 18–28; TEMP 36.8; O2SAT 90–98; BMI 19.7
--- NOTE | 2024-05-10 | IMM_PTH ---
PATIENT: ARYA HUGGINS LOC: CT U#:[id number] AGE/SX: 58/F ROOM: RE05/10/[address]: DOUG Waddell : 1965 BED: DIS: 05/10/2024 SPEC #: [id number] RECD: 05/10/24 10:41 STATUS: ANN REQ #: [id number] DAYAN: 05/10/24 00:[address]: Yesenia Gamino NP DEPT: IMMUNOHISTOCHEMISTRY RECD BY: Mike Phelps ENTERED: 05/10/24 10:42 SP TYPE: IMMUNO OTHR DR: No Primary Care Phys Tissues: Lung, NOS Procedures: RCC (add) NAPSIN A (add) CK20 (add) CK5-6 (add) CK7 (add) CK8 (add) HEP PAR (add) WA (add) TTF1 (add) Pankeratin (add) P40 (add) ER (initial) PHYSICIAN & INSTITUTION [address] [address] SPECIMEN INFORMATION: Tissue Source: Right lung mass, CT guided core biopsy Clinical Info: Right lung mass Specimen Number: [id number] CPT code: 71131,[id number] METHODOLOGY: Deparaffinized sections of prefer/formalin-fixed tissue or PAP/DQ stained slides are incubated with monoclonal/polyclonal antibodies/oligonucleotide probes. Localization is made via biotin free immunoperoxidase method. Appropriate controls are performed and reacted as expected. Results on target cell population are indicated in the following table: RESULTS: ANTIBODY / CLONE RESULT ER (6F11) positive, weak, focal WA (1E2) negative AE1-3 (AE1/AE3/PCK26) positive CK7 (OV-TL12/30) positive CK8 (60ajeyJ40) positive CK20 (KS20.8) negative TTF-1 (8G7G3/1) positive Napsin A (Rabbit Polyclonal) positive HepPar (OCh1E5) negative RCC (PN-15) negative CK5-6 (D5 & 1684) negative P40 (BC28) negative These tests were developed and their performance characteristics determined by [facility]. They may not have been cleared or approved by the U.S. Food and Drug Administration. The FDA has determined that such clearance or approval is not necessary. The above immunohistochemical/dualISH markers are ordered and reviewed by the Pathologist. INTERPRETATION: Right lung mass, CT guided core biopsy: Moderately differentiated adenocarcinoma, consistent with lung primary. SJ/mr 05/11/2024
--- NOTE | 2024-05-10 | ASPIGT_PTH ---
PATIENT: ARYA HUGGINS LOC: CT U#:[id number] AGE/SX: 58/F ROOM: RE05/10/[address]: DOUG Waddell : 1965 BED: DIS: 05/10/2024 SPEC #: [id number] RECD: 05/10/24 11:09 STATUS: ANN ELMO #: [id number] DAYAN: 05/10/24 00:[address]: Yesenia Gamino NP DEPT: SURGICAL PATHOLOGY RECD BY: Kaleb Conley ENTERED: 05/10/24 11:10 SP TYPE: ASP RAD OTHR DR: No Primary Care Phys Tissues: Lung, NOS Procedures: FNA Specimen Adequacy Special Stain Group II Surgery Specimen Level IV Imprint (control) HEADER OPERATION: Right lung biopsy PRE-OP DIAGNOSIS: Right lung mass TISSUE SUBMITTED: 20 gauge x7 core MICROSCOPIC DIAGNOSIS Right lung mass, CT guided core biopsy: Moderately differentiated adenocarcinoma. See Note. Note: Immunohistochemistry ([id number]) supports the above diagnosis and consistent with lung primary. / 05/11/2024 COMMENT The specimen is evaluated at the time of biopsy by Dr. Wets. Immediate Evaluation = Malignant cells present derived from non-small cell carcinoma. Molecular study on the tumor can be performed if clinically indicated. Please notify the laboratory if it is needed. Case has been reviewed in consultation with Dr. Hodge who concurs with the above diagnosis. IDC:AM MICROSCOPIC DESCRIPTION Slides are reviewed. GROSS DESCRIPTION Received in fixative is one container labeled with the patient's name and designated Right lung Ct guided core biopsy. The specimen consists of multiple irregular fragments of randle soft tissue that in aggregate measure 1.0 x 0.2 x 0.1 cm. The specimen is totally submitted in one cassette. Two touch imprints are prepared at the time of core biopsy. / 05/10/2024 TC:0 [facility]:[id number], [id number] ADDENDUM ADDENDUM ADDENDUM ADDENDUM ADDENDUM ADDENDUM 05/31/2024 08:23 ADDENDUM 05/31/2024 08:23 ADDENDUM 05/31/2024 08:23 ADDENDUM 05/31/2024 08:23 ADDENDUM 05/31/2024 08:23 ADDENDUM 06/03/2024 09:46 PD-L1 (KEYTRUDA) IMMUNOHISTOCHEMICAL ANALYSIS FROM [facility] RESULTS: Tumor proportion score: <1% / Negative Please see complete report in e-chart or EMR [facility] NGS REPORT FROM [facility] RESULT SUMMARY: Abnormal DETECTED GENOMIC ALTERATIONS: Tier II: Variants of Potential Clinical Significance ALK p. ([id number]) TUMOR TYPE: Lung adenocarcinoma CLINICAL INFORMAITON: Right lung mass core biopsy showed moderately differentiated adenocarcinoma. Immunohistochemistry supported the above diagnosis and was consistent with lung primary. HISTOPATHOLOGIC REVIEW: Tumor is present and is estimated to comprise 20-50% of nuclei in the sample. Please see complete report in e-chart or EMR
[2024-05-10] MEDS: 0.9% Normal Saline (250mL Bag) 250 ML 15 ML IV (09:56)
[2024-05-10] MEDS: Midazolam 2 MG/2 ML Syringe IV (09:58)
[2024-05-10] MEDS: fentaNYL 100 MCG/2 ML Ampul IV (10:01)
[2024-05-10] MEDS: Lidocaine 2% (20 ml mdv) 20 ML Vial INFILT (10:16)
--- NOTE | 2024-05-10 10:30 | RAD_ITS ---
STUDY: X-RAY CHEST REASON FOR EXAM: Female, 58 years old. Postbiopsy chest x-ray. TECHNIQUE: Frontal inspiration and expiration views of the chest were performed on 2 images. COMPARISON: May 02, 2024 FINDINGS: Small right pneumothorax with 7 mm of separation of visceral and parietal pleura in the right lateral chest. Stable hyperinflation with diffuse moderate interstitial prominence. Stable right lower lobe opacity with patchy surrounding opacity. Borderline cardiomegaly unchanged. Normal mediastinum and esvin. Normal visualized pulmonary arteries. Aortic tortuosity unchanged. No abnormality of the visualized soft tissue structures of the upper abdomen. RAD/Chest Insp/Exp 2 View IMPRESSION: Relatively stable chest since the comparison study of May 02, 2024. Very small lateral pneumothorax on the expiration view of 7 mm as described. N.B. : The above Results were Read Back by Andrei Riley MD to Azalea Ruiz NP, and understanding confirmed on 05/10/2024 11:17:24 (ET). Electronically Signed: Andrei Riley MD at 11:19 EDT ,
--- NOTE | 2024-05-10 11:21 | PCM.OP.PRO ---
Procedure Report Date of Procedure: 05/10/24 Assessment & Plan Assessment/Plan (1) Right lower lobe lung mass: PLAN: PROCEDURE: CT GUIDED CORE NEEDLE LUNG BIOPSY ORDERING PROVIDER: Yesenia Gamino CNP INDICATION: Female, 58 years old. Right lower lobe lung mass PROVIDER: CHERIE Trevizo CONSENT: Written informed consent was obtained having explained the risks, benefits and alternatives in detail with the patient who accepted the risks and agreed to proceed. Laboratory review and clinical assessment was performed. PRE-PROCEDURE SEDATION ASSESSMENT: Current history and physical dictated by referring physician and reviewed. No clinical changes since date of exam. Patient has an ASA Class of 2. PROCEDURAL SEDATION PROTOCOL: The Drugs used were: 2 mg Versed, IV, and 50 mcg Fentanyl, IV. The sedation time was: 31 minutes, starting at 9:58 AM and terminated at 10:29 AM. The procedural sedation protocol was independently monitored by the department nurse. RADIATION DOSAGE (If Supplied By Facility): CTDIvol = 12.96 mGy, DLP = 1147.50 mGycm Individualized dose optimization techniques were used for this CT. TECHNIQUE: The patient was placed in a prone position. A noncontrast CT was performed to localize the lesion in the right lower lobe. The skin surface was prepped and draped in a sterile fashion. 2% lidocaine was used for local anesthesia. Using CT guidance, a 20-gauge coaxial biopsy device was advanced to the periphery of the lesion. A total of 7 core specimens were obtained. Specimens were microscopically reviewed by pathology in the CT suite and placed in formalin solution. BioSentry tract sealant system was deployed at the biopsy site, and the biopsy needle was removed. A sterile occlusive dressing was applied to the biopsy site. The patient tolerated the procedure well. An immediate chest xray was ordered, per protocol. A small lateral pneumothorax was appreciated on immediate interpretation of the portable chest x-ray. This nurse practitioner spoke with interpreting radiologist, Dr. Riley, who agreed that at this time given the small size of the pneumothorax and stable clinical condition of patient, is a reasonable plan to continue observation and repeat imaging in 4 hours. Patient remains on supplemental oxygen at 3 L nasal cannula to support reexpansion. A negative biopsy does not exclude malignancy. Further imaging or clinical followup based on patient condition and degree of clinical suspicion for malignancy. Suggest rebiopsy, if biopsy results do not match with clinical scenario. IMPRESSION: 1. CT directed core needle biopsy of right lower lobe mass using CT image guidance with image documentation as described. Pathology results are pending. 2. Procedural Sedation protocol utilized with independent monitoring by the department nurse. Procedures Radiology Radiology CT Procedures: [id number] Biopsy Lung
--- NOTE | 2024-05-10 12:15 | RAD_ITS ---
STUDY: X-RAY CHEST REASON FOR EXAM: Female, 58 years old. 2 hours after lung biopsy. Follow-up. TECHNIQUE: Single frontal view of the chest on 2 images. COMPARISON: Earlier in the day. FINDINGS: Slight increase in right pneumothorax from 2.9 cm to now 3.8 cm of separation of visceral and parietal pleura in the apex. Stable cardiomegaly, aortic tortuosity, mild diffuse interstitial pattern diffusely bilaterally and patchy opacities at the right base. No abnormality of the visualized soft tissue structures of the upper abdomen. RAD/Chest Insp/Exp 2 View IMPRESSION: Slight increase in right pneumothorax of approximately 9 mm of separation of visceral and parietal pleura in the apex. No other change. Electronically Signed: Andrei Riley MD at 12:40 EDT ,
--- NOTE | 2024-05-10 14:54 | NURSING ---
At approximately 1240 JOSH Diego was informed that pt's pneumothorax had increased in size. WILLIS King communicated all results with patient and informed pt she would need to go to the ED for a small tube to be inserted to help the lung reinflate. Pt and significant other are in agreement. Pt denies chest any discomfort. Pt taken to ED by JOSH Diego. Bedside report given to JOSH Marin.
--- NOTE | 2024-05-11 08:00 | RAD_ITS ---
EXAM: XR CHEST, 2 VIEWS CLINICAL INDICATION: eval pneumothorax TECHNIQUE: Frontal and lateral views of the chest. COMPARISON: 05/10/2024. FINDINGS: LUNGS AND PLEURAL SPACES: Small right apical pneumothorax that has mildly increased since the previous exam. Previously there was approximately 9 mm of separation of the visceral and parietal pleura at the apex. On the current exam there is approximately 1.3 cm of separation and slight more gas is seen lateral to the apex of the right lung. No effusion. No change in the right lower lobe opacity. HEART: Unremarkable. Cardiac silhouette not enlarged. MEDIASTINUM: Central airways and mediastinal contour are unremarkable. BONES/JOINTS: Densely sclerotic L1 vertebral body with decreased visualization of the pedicles may be due to sclerotic metastasis. No acute fracture. SOFT TISSUES: Unremarkable. TUBES, LINES AND DEVICES: No change in the small caliber right-sided chest tube. RAD/Chest Insp/Exp 2 View IMPRESSION: 1. Small right apical pneumothorax that is slightly larger than on the previous exam. 2. No change in the small caliber right-sided chest tube. 3. No change in the right lower lobe opacity. 4. Densely sclerotic L1 vertebral body with decreased visualization of the pedicles may be due to sclerotic metastasis. Electronically Signed: kSip Blackburn MD at 7:50 EDT ,
== END | disposition home or self-care (01) ==
PROVIDERS: Referring Provider Nurse Practitioner Acute Care; Visit Provider Nurse Practitioner Acute Care
DX: C34.31 Malignant neoplasm of lower lobe, right bronchus or lung (principal); Z87.891 Personal history of nicotine dependence
CPT/HCPCS: 10009; 71046; 77012; 88172; 88305; 88313; 88341; 88342; 99156; 99157; J7050; A4216; C2613

== ENCOUNTER 2024-05-13 20:28 | Inpatient (IN) | payer OTHER, SELFPAY ==
[2024-05-13] VITALS (11 sets, daily range): BP systolic 101–135; BP diastolic 57–92; PULSE 115–124; RESP 14–31; TEMP 35.7–37.1; O2SAT 88–95; BMI 19.2
--- NOTE | 2024-05-13 20:51 | EDS_ITS ---
HPI <LUÍS Garrett - Last Filed: 05/14/24 11:15> History of Present Illness Chief Complaint: Shortness of Breath Narrative Narrative: 58-year-old female presented to [facility] ED and had a CT-guided biopsy of a right lung mass on 05/10/2024. Initially she was treated as pneumonia but since it was not improving biopsy was ordered which returned with adenocarcinoma. The biopsy procedure caused a right pneumothorax and a chest tube was placed. Her pneumothorax improved and the chest tube was removed this morning and she was discharged on 2 L nasal cannula. She states she can only take about 10 steps with the ambulatory pulse ox test in the hospital but since she got home she cannot walk more than 2 steps without being too short of breath and has to sit down. [facility] <LUÍS Garrett - Last Filed: 05/14/24 11:15> [facility] Medical History Smoker Right lower lobe lung mass Home Medications ?Medication ?Instructions ?Recorded ?Last Taken ?Type albuterol sulfate 90 mcg/actuation 2 puff inhalation Q4H PRN 05/06/24 05/10/24 Rx aerosol inhaler (Ventolin HFA) SHORTNESS OF BREATH/WHEEZING #18 grams ibuprofen 200 mg tablet 400 mg PO Q6H PRN FEVER/PAIN 05/06/24 Unknown History levofloxacin 750 mg tablet 750 mg PO Q24H ANTIBIOTIC 05/10/24 05/10/24 History prednisone 10 mg tablet See Taper PO DAILY STEROID 05/10/24 05/10/24 History oxycodone 5 mg tablet 5 mg PO Q4H PRN PRN Pain Score 05/13/24 Unknown Rx 4-10 3 days #10 tabs Allergy/AdvReac Type Severity Reaction Status Date / Time No Known Allergies Allergy Verified 05/13/24 21:15 Family History Mother Heart disease Father Heart disease Diabetes Surgical History Hx of appendectomy History of hysterectomy Hx of tonsillectomy Social History Smoking Status: Former smoker alcohol intake: never substance use type: does not use EXAM <LUÍS Garrett - Last Filed: 05/14/24 11:15> Physical Exam Const Vital Signs: 05/13/24 20:30 05/13/24 21:10 05/13/24 21:14 Temperature 96.3 F L Temperature Source Temporal Pulse Rate 123 H Respiratory Rate 26 H Respiratory Effort Respiratory Depth Respiratory Pattern Blood Pressure 104/57 L Blood Pressure Mean 72 Pulse Ox 88 88 93 Oxygen Delivery Method Nasal Cannula Nasal Cannula Nasal Cannula Oxygen Flow Rate (L/min) 3 2 3 05/13/24 21:20 05/13/24 21:43 05/13/24 22:57 Temperature 98.5 F 97.7 F L Temperature Source Temporal Oral Pulse Rate 124 H 115 H Respiratory Rate 31 H 14 Respiratory Effort Short of Breath Labored Respiratory Depth Shallow Respiratory Pattern Tachypnea Blood Pressure 101/71 135/92 H Blood Pressure Mean 81 106 Pulse Ox 93 95 Oxygen Delivery Method Nasal Cannula Nasal Cannula Nasal Cannula Oxygen Flow Rate (L/min) 3 3 3 05/13/24 23:04 05/13/24 23:06 05/13/24 23:21 Temperature 97.7 F L 98.8 F Temperature Source Oral Temporal Pulse Rate 115 H 117 H 117 H Respiratory Rate 22 H 20 H 24 H Respiratory Effort Respiratory Depth Respiratory Pattern Blood Pressure 135/92 H 125/90 H 125/90 H Blood Pressure Mean 106 101 101 Pulse Ox 94 93 93 Oxygen Delivery Method Nasal Cannula Nasal Cannula Nasal Cannula Oxygen Flow Rate (L/min) 3 3 3 05/13/24 23:36 05/13/24 23:51 05/14/24 00:06 Temperature 98.7 F 97.9 F 99.1 F Temperature Source Temporal Temporal Temporal Pulse Rate 118 H 123 H 112 H Respiratory Rate 23 H 25 H 25 H Respiratory Effort Respiratory Depth Respiratory Pattern Blood Pressure 114/86 H 111/86 H 112/78 Blood Pressure Mean 95 94 89 Pulse Ox 94 94 99 Oxygen Delivery Method Nasal Cannula Nasal Cannula Nasal Cannula Oxygen Flow Rate (L/min) 3 3 3 05/14/24 01:17 Temperature 99.1 F Temperature Source Pulse Rate 114 H Respiratory Rate 25 H Respiratory Effort Respiratory Depth Respiratory Pattern Blood Pressure 112/78 Blood Pressure Mean 89 Pulse Ox 98 Oxygen Delivery Method Oxygen Flow Rate (L/min) <Dr. Wiley Ortega DO - Last Filed: 05/14/24 01:00> Physical Exam Const Vital Signs: 05/13/24 20:30 05/13/24 21:10 05/13/24 21:14 Temperature 96.3 F L Temperature Source Temporal Pulse Rate 123 H Respiratory Rate 26 H Respiratory Effort Respiratory Depth Respiratory Pattern Blood Pressure 104/57 L Blood Pressure Mean 72 Pulse Ox 88 88 93 Oxygen Delivery Method Nasal Cannula Nasal Cannula Nasal Cannula Oxygen Flow Rate (L/min) 3 2 3 05/13/24 21:20 05/13/24 21:43 05/13/24 22:57 Temperature 98.5 F 97.7 F L Temperature Source Temporal Oral Pulse Rate 124 H 115 H Respiratory Rate 31 H 14 Respiratory Effort Short of Breath Labored Respiratory Depth Shallow Respiratory Pattern Tachypnea Blood Pressure 101/71 135/92 H Blood Pressure Mean 81 106 Pulse Ox 93 95 Oxygen Delivery Method Nasal Cannula Nasal Cannula Nasal Cannula Oxygen Flow Rate (L/min) 3 3 3 05/13/24 23:04 05/13/24 23:06 05/13/24 23:21 Temperature 97.7 F L 98.8 F Temperature Source Oral Temporal Pulse Rate 115 H 117 H 117 H Respiratory Rate 22 H 20 H 24 H Respiratory Effort Respiratory Depth Respiratory Pattern Blood Pressure 135/92 H 125/90 H 125/90 H Blood Pressure Mean 106 101 101 Pulse Ox 94 93 93 Oxygen Delivery Method Nasal Cannula Nasal Cannula Nasal Cannula Oxygen Flow Rate (L/min) 3 3 3 05/13/24 23:36 05/13/24 23:51 05/14/24 00:06 Temperature 98.7 F 97.9 F 99.1 F Temperature Source Temporal Temporal Temporal Pulse Rate 118 H 123 H 112 H Respiratory Rate 23 H 25 H 25 H Respiratory Effort Respiratory Depth Respiratory Pattern Blood Pressure 114/86 H 111/86 H 112/78 Blood Pressure Mean 95 94 89 Pulse Ox 94 94 99 Oxygen Delivery Method Nasal Cannula Nasal Cannula Nasal Cannula Oxygen Flow Rate (L/min) 3 3 3 05/14/24 01:17 Temperature 99.1 F Temperature Source Pulse Rate 114 H Respiratory Rate 25 H Respiratory Effort Respiratory Depth Respiratory Pattern Blood Pressure 112/78 Blood Pressure Mean 89 Pulse Ox 98 Oxygen Delivery Method Oxygen Flow Rate (L/min) MDM <LUÍS Garrett - Last Filed: 05/14/24 11:15> [facility] MDM Narrative Medical decision making narrative: Patient had iatrogenic pneumothorax after a right lung mass biopsy on May 10 which showed adenocarcinoma. Her chest tube was removed this morning and she was discharged on 2 L nasal cannula. She states she cannot take more than 2 steps without being too short of breath to continue. On arrival she is 88% on 2 L, BP 104/57, normal sinus rhythm in the 120s, RR 26/minute. Right lung sounds are slightly diminished. Labs show WBC of 19.1 elevated from 12.92 days ago. She is on steroids. She also has new DONALD with BUN of 39, creatinine 1.83 (0.88 previously). Glucose is 331. EKG shows sinus tachycardia at 124. There are new T wave inversions in V3 as well as slight ST depression in V4 through V6 which is changed from 05/02/2024. Troponin is 280. This could be heart strain from hypoxia but I also ordered a CTA to rule out PE. Lab Data Labs: Laboratory Results - last 24 hr 05/13/24 05/13/24 05/13/24 21:13 21:52 23:14 WBC 19.1 H RBC 5.55 H Hgb 15.2 H Hct 48.6 H MCV 87.6 MCH 27.4 MCHC 31.3 L RDW Std Deviation 41.5 RDW Coeff of Chaitanya 12.9 Plt Count 303 MPV 11.1 Immature Gran % (Auto) 0.700 Neut % (Auto) 91.5 H Lymph % (Auto) 3.2 L [place] % (Auto) 4.4 Eos % (Auto) 0.0 Baso % (Auto) 0.2 Absolute Neuts (auto) 17.4 H Absolute Lymphs (auto) 0.61 L Nucleated RBC % 0 PT 17.7 H INR 1.5 APTT 27.7 Sodium 134 L Potassium 4.3 Chloride 98 Carbon Dioxide 20.0 L Anion Gap 16 H BUN 39 H Creatinine 1.83 H Estim Creat Clear Calc 27.53 Est GFR (MDRD) Af Amer 37 L Est GFR (MDRD) Non-Af 30 L BUN/Creatinine Ratio 21.3 H Glucose 331 H Lactic Acid 6.1 H* Calcium 9.2 Total Bilirubin 1.10 H Direct Bilirubin 0.50 H AST 60 H ALT 92 H Alkaline Phosphatase 142 H Troponin I High Sens 288 H* Total Protein 6.5 Albumin 2.8 L Globulin 3.7 Radiography Diagnostic Testing: Clinical Impression(s) from Imaging Studies Chest X-Ray 05/13/24 21:30 IMPRESSION: 1. Small apical right-sided pneumothorax is similar to the prior radiograph. 2. Persistent right basilar pulmonary opacity correlating with prior examinations and presumptively the biopsied lesion. Electronically Signed: Roman Lemons DO at 22:03 EDT , Chest CTA 05/13/24 21:50 IMPRESSION: 1. Right side pulmonary artery emboli. The most proximal embolus is in right lower lobar arteries and this is associated with right heart strain. 2. Persistent right apical pneumothorax similar to the prior CT. 3. Right pleural effusion and right lower lobe consolidative airspace disease consistent with pneumonia. Hypoattenuating regions may be related to infarct within this area. Compared to the prior CT, this appears similar. An underlying mass cannot be excluded. 4. Nodular consolidation in the periphery of the right upper lobe is nonspecific, similar to the prior examination. 5. Mild interstitial thickening suggesting edema particularly at the lung apices. 6. Right-sided chest wall soft tissue emphysema. Electronically Signed: Roman Lemons DO at 22:44 EDT , ADDENDUM: 05/13/24 0785 IMPRESSION: 1. Right side pulmonary artery emboli. The most proximal embolus is in right lower lobar arteries and this is associated with right heart strain. 2. Persistent right apical pneumothorax similar to the prior CT. 3. Right pleural effusion and right lower lobe consolidative airspace disease consistent with pneumonia. Hypoattenuating regions may be related to infarct within this area. Compared to the prior CT, this appears similar. An underlying mass cannot be excluded. 4. Nodular consolidation in the periphery of the right upper lobe is nonspecific, similar to the prior examination. 5. Mild interstitial thickening suggesting edema particularly at the lung apices. 6. Right-sided chest wall soft tissue emphysema. N.B. : The above Results were Read Back by Roman Lemons DO to Jeovanny Ortega MD, and understanding confirmed on 05/13/2024 22:48:33 (ET). Electronically Signed: Roman Lemons DO at 22:44 EDT , <Dr. Wiley Ortega DO - Last Filed: 05/14/24 01:00> MDM MDM Narrative Medical decision making narrative: Patient had iatrogenic pneumothorax after a right lung mass biopsy on May 10 which showed adenocarcinoma. Her chest tube was removed this morning and she was discharged on 2 L nasal cannula. She states she cannot take more than 2 steps without being too short of breath to continue. On arrival she is 88% on 2 L, BP 104/57, normal sinus rhythm in the 120s, RR 26/minute. Right lung sounds are slightly diminished. Labs show WBC of 19.1 elevated from 12.92 days ago. She is on steroids. She also has new DONALD with BUN of 39, creatinine 1.83 (0.88 previously). Glucose is 331. EKG shows sinus tachycardia at 124. There are new T wave inversions in V3 as well as slight ST depression in V4 through V6 which is changed from 05/02/2024. Troponin is 280. This could be heart strain from hypoxia but I also ordered a CTA to rule out PE. I have personally performed a face to face assessment of the patient and have reviewed the KIEL Note. I performed a substantive portion of the visit including all aspects of the following. My vigil findings include: History is 58-year-old female status post iatrogenic pneumothorax on the right following lung biopsy which revealed adenocarcinoma of the lower right lung. She was discharged from the hospital today on Levaquin as well as some prednisone. There was some residual apical pneumothorax noted. She was discharged home on supplemental oxygen. Patient states that she did not feel that she could be safely discharged home but she could only walk about 10 feet. She states she can now only walk a couple of feet without being significantly short of breath. She was noted to be hypoxic in triage on oxygen. Patient notes pain in the right chest Exam is patient is tachypneic tachycardic. I do not see mottling of her extremities. Decreased lung sounds on the right base. Medical Decison Making white count is elevated at 19 may be some combination of postobstructive pneumonia as well as the prednisone therapy. Again she is on Levaquin. Her EKG shows some inverted T waves in 3 which were present before. There is some non-ST specific ST segments laterally in the precordial leads. V3 shows inverted T waves in downward S that is different from prior. Slightly prolonged QRS complexes compared to the previous EKG. Her troponin is slightly elevated to 88. Lactic acid is elevated at 6.1. Anion gap 16 BUN of 39 with a creatinine of 1.83. My independent interpretation of the chest x-ray is residual apical pneumothorax right lower lung mass/infiltrate a CTA of the chest was obtained which demonstrates acute pulmonary embolism on the right with some evidence of right heart strain. Please see the radiologist full read for details. Patient is receiving IV fluids. She received supplemental oxygen and has been satting about 93% currently. I am going to be speaking with the hospitalist regarding admission and choice of anticoagulant. I did speak with Dr. De La Torre from cardiology about the potential necessity for stat echo which at this time she has been normal tensive still tachycardic and is satting adequately on [address] findings in the main body the radiologist read and the conclusions were discussed. With both hospitalist and cardiology. History & Record Review Discussion w/independent historian: Patient and Family Additional record(s) reviewed:: Prior inpatient record, Prior outpatient record, Prior ED visit and Prior labs Lab Data Attestation: I reviewed the patient's lab results. Labs: Laboratory Results - last 24 hr 05/13/24 05/13/24 05/13/24 21:13 21:52 23:14 WBC 19.1 H RBC 5.55 H Hgb 15.2 H Hct 48.6 H MCV 87.6 MCH 27.4 MCHC 31.3 L RDW Std Deviation 41.5 RDW Coeff of Chaitanya 12.9 Plt Count 303 MPV 11.1 Immature Gran % (Auto) 0.700 Neut % (Auto) 91.5 H Lymph % (Auto) 3.2 L [place] % (Auto) 4.4 Eos % (Auto) 0.0 Baso % (Auto) 0.2 Absolute Neuts (auto) 17.4 H Absolute Lymphs (auto) 0.61 L Nucleated RBC % 0 PT 17.7 H INR 1.5 APTT 27.7 Sodium 134 L Potassium 4.3 Chloride 98 Carbon Dioxide 20.0 L Anion Gap 16 H BUN 39 H Creatinine 1.83 H Estim Creat Clear Calc 27.53 Est GFR (MDRD) Af Amer 37 L Est GFR (MDRD) Non-Af 30 L BUN/Creatinine Ratio 21.3 H Glucose 331 H Lactic Acid 6.1 H* Calcium 9.2 Total Bilirubin 1.10 H Direct Bilirubin 0.50 H AST 60 H ALT 92 H Alkaline Phosphatase 142 H Troponin I High Sens 288 H* Total Protein 6.5 Albumin 2.8 L Globulin 3.7 Radiography Diagnostic Testing: Clinical Impression(s) from Imaging Studies Chest X-Ray 05/13/24 21:30 IMPRESSION: 1. Small apical right-sided pneumothorax is similar to the prior radiograph. 2. Persistent right basilar pulmonary opacity correlating with prior examinations and presumptively the biopsied lesion. Electronically Signed: Roman Lemons DO at 22:03 EDT , Chest CTA 05/13/24 21:50 IMPRESSION: 1. Right side pulmonary artery emboli. The most proximal embolus is in right lower lobar arteries and this is associated with right heart strain. 2. Persistent right apical pneumothorax similar to the prior CT. 3. Right pleural effusion and right lower lobe consolidative airspace disease consistent with pneumonia. Hypoattenuating regions may be related to infarct within this area. Compared to the prior CT, this appears similar. An underlying mass cannot be excluded. 4. Nodular consolidation in the periphery of the right upper lobe is nonspecific, similar to the prior examination. 5. Mild interstitial thickening suggesting edema particularly at the lung apices. 6. Right-sided chest wall soft tissue emphysema. Electronically Signed: Roman EulalioCrystal Lemons DO at 22:44 EDT , ADDENDUM: 05/13/24 2255 IMPRESSION: 1. Right side pulmonary artery emboli. The most proximal embolus is in right lower lobar arteries and this is associated with right heart strain. 2. Persistent right apical pneumothorax similar to the prior CT. 3. Right pleural effusion and right lower lobe consolidative airspace disease consistent with pneumonia. Hypoattenuating regions may be related to infarct within this area. Compared to the prior CT, this appears similar. An underlying mass cannot be excluded. 4. Nodular consolidation in the periphery of the right upper lobe is nonspecific, similar to the prior examination. 5. Mild interstitial thickening suggesting edema particularly at the lung apices. 6. Right-sided chest wall soft tissue emphysema. N.B. : The above Results were Read Back by Roman Lemons DO to Jeovanny Ortega MD, and understanding confirmed on 05/13/2024 22:48:33 (ET). Electronically Signed: Roman Lemons DO at 22:44 EDT , Management Discussion w/another healthcare provider: Hospitalist <Dr. Wiley Ortega DO - Last Filed: 05/14/24 01:00> Critical Care Time Critical Care Time: Yes Critical care time (excluding procedures): 30-74 minutes (34 min), Including time spent:, Discussing w/Patient &/or Family/Afloat Cryptologic Manager, Discussing w/Consultants, Arranging Admission or Transfer and Performing Direct Patient Care at Bedside Discharge Plan Dx/Rx/DC Orders Clinical Impression: Right lower lobe lung mass, Pneumothorax after biopsy, Hypoxia, Leukocytosis, Acute kidney injury, Acute pulmonary embolism, Elevated troponin Disposition Disposition: Acute Care Hospital [facility] Discharge Date/Time: 05/14/24 01:52
--- NOTE | 2024-05-13 21:08 | EKG12_ITS ---
Test Reason : Blood Pressure : / mmHG Vent. Rate : 124 BPM Atrial Rate : 124 BPM P-R Int : 150 ms QRS Dur : 074 ms QT Int : 306 ms P-R-T Axes : 063 110 -14 degrees QTc Int : 439 ms Sinus tachycardia Left posterior fascicular block Anterior infarct , age undetermined ST & T wave abnormality, consider inferior ischemia Abnormal ECG Confirmed by Skip Brumfield ([id number]), legal editor BILL ESPINO ([id number]) on 05/16/2024 10:41:49 AM Referred By: Confirmed By:Skip Brumfield
[2024-05-13] MEDS: 0.9% Normal Saline (1000mL) 1,000 ML 999 ML IV ×2 (21:16→23:29)
[2024-05-13 21:22] LABS: Absolute Lymphocyte Count 0.61 X10^3/uL (0.83-4.51); Absolute Neutrophil Count 17.4 X10^3/uL (2.0-7.7); Basophil# 0.03 X10^3/uL; Basophil% 0.2 % (0-1); Hematocrit 48.6 % (37-47); Hemoglobin 15.2 g/dL (12.0-15.0); Lymphocyte # 0.61 X10^3/ul (0.83-4.51); Lymphocyte % 3.2 % (19-41); Mean Corp Hgb Conc 31.3 g/dL (32-36); Mean Corpuscular Hgb 27.4 pg (27.0-32.0); Mean Corpuscular Volume 87.6 fL (81-99); Mean Platelet Vol. 11.1 fl (6.2-12.0); Monocyte# 0.83 X10^3/uL; Monocyte% 4.4 % (0-10); NRBC Flagged by Analyzer 0 % (0-5); Neutrophil # 17.44 X10^3/uL (2.7-7.7); Neutrophil % 91.5 % (47-70); Platelet Count 303 K/mm3 (150-450); RBC Distribution Width CV 12.9 % (11.6-14.6); RBC Distribution Width SD 41.5 fl (35.1-43.9); Red Blood Count 5.55 M/mm3 (4.2-5.4); White Blood Count 19.1 K/mm3 (4.4-11.0)
--- NOTE | 2024-05-13 21:30 | RAD_ITS ---
EXAM: XR CHEST, 2 VIEWS CLINICAL INDICATION: dyspnea TECHNIQUE: Frontal and lateral views of the chest. COMPARISON: 05/13/2024 FINDINGS: LUNGS AND PLEURAL SPACES: Small apical right-sided pneumothorax is similar to the prior radiograph. Persistent right basilar pulmonary opacity correlating with prior examinations and presumptively the biopsied lesion. No effusion. HEART: No significant abnormality. Cardiac silhouette not enlarged. MEDIASTINUM: No shift of the mediastinum. BONES/JOINTS: Degenerative changes in the spine. No acute fracture. SOFT TISSUES: Minimal residual soft tissue emphysema in the right chest wall. RAD/Chest PA and Lateral IMPRESSION: 1. Small apical right-sided pneumothorax is similar to the prior radiograph. 2. Persistent right basilar pulmonary opacity correlating with prior examinations and presumptively the biopsied lesion. Electronically Signed: Roman Lemons DO at 22:03 EDT ,
[2024-05-13 21:36] LABS: Anion Gap 16 (5-15); BUN 39 mg/dL (7-18); BUN/Creat Ratio 21.3 RATIO (10-20); Calcium,Total 9.2 mg/dL (8.5-10.1); Chloride 98 mmol/L (98-107); Creatinine, Serum 1.83 mg/dL (0.55-1.02); EST Glomerular Filtration Rate 30 mL/min (>60); Est Glom Filt Rate - Afr Amer 37 mL/min (>60); Estimated Creatinine Clearance 27.53 ml/min; Glucose 331 mg/dL (74-106); Potassium 4.3 mmol/L (3.5-5.1); Sodium Level 134 mmol/L (136-145)
[2024-05-13 21:50] LABS: Troponin-I HS 288 pg/mL (3.0-54.0)
--- NOTE | 2024-05-13 21:50 | CT_ITS ---
We are attempting to reach an attending provider to discuss findings. An addendum with communication details will be sent when the communication is complete. EXAM: CT ANGIOGRAPHY CHEST WITHOUT AND WITH INTRAVENOUS CONTRAST CLINICAL INDICATION: dyspnea TECHNIQUE: Helically acquired angiography images were obtained of the chest without and with intravenous contrast. This CT exam was performed using one or more of the following dose reduction techniques: automated exposure control, adjustment of the mA and/or kV according to patient size, and/or use of iterative reconstruction technique. MIP reconstructed images were created and reviewed. CONTRAST: IV 75mL [id number] COMPARISON: Chest radiograph on the same date and CT chest, 05/11/2024. FINDINGS: PULMONARY ARTERIES: Right lower lobe lobar, segmental and subsegmental pulmonary artery emboli identified. Subsegmental right upper lobe pulmonary artery emboli are identified. AORTA: No significant abnormality. Normal in caliber. No evidence of dissection. GREAT VESSELS OF AORTIC ARCH: No significant abnormality. Normal in caliber. No evidence of dissection. LUNGS AND PLEURAL SPACES: Persistent right apical pneumothorax similar to the prior CT. Right pleural effusion and right lower lobe consolidative airspace disease consistent with pneumonia. Nodular consolidation in the periphery of the right upper lobe is nonspecific, similar to the prior examination. Mild interstitial thickening suggesting edema particularly at the lung apices. Possible underlying mass. HEART: The right ventricular is dilated with an RV to LV ratio of at least 2:1. Heart size is otherwise normal. No pericardial effusion. No significant coronary artery calcifications. MEDIASTINUM: No significant abnormality. No mediastinal or hilar adenopathy. Esophagus is unremarkable. No hiatal hernia. THYROID: No significant abnormality. No thyroid lesions. BONES/JOINTS: No significant abnormality. No suspicious lytic or blastic abnormality. SOFT TISSUES: Right-sided chest wall soft tissue emphysema. CT/CTA Chest W/WO Contrast IMPRESSION: 1. Right side pulmonary artery emboli. The most proximal embolus is in right lower lobar arteries and this is associated with right heart strain. 2. Persistent right apical pneumothorax similar to the prior CT. 3. Right pleural effusion and right lower lobe consolidative airspace disease consistent with pneumonia. Hypoattenuating regions may be related to infarct within this area. Compared to the prior CT, this appears similar. An underlying mass cannot be excluded. 4. Nodular consolidation in the periphery of the right upper lobe is nonspecific, similar to the prior examination. 5. Mild interstitial thickening suggesting edema particularly at the lung apices. 6. Right-sided chest wall soft tissue emphysema. Electronically Signed: Roman Lemons DO at 22:44 EDT ,
[2024-05-13 22:47] LABS: Lactic Acid 6.1 mmol/L (0.4-1.9)
[2024-05-13 22:48] LABS: AST(SGOT) 60 U/L (15-37); Alanine Aminotransfer ALT/SGPT 92 U/L (13-56); Albumin, Serum 2.8 g/dL (3.2-5.0); Alkaline Phosphatase 142 U/L (45-117); Globulin 3.7 g/dL (2.2-4.2); Protein, Total 6.5 g/dL (6.4-8.2)
--- NOTE | 2024-05-13 23:16 | PCM.HP.STD ---
[facility] - General General Date of Admission: 05/14/24 Date of Service: 05/13/24 Chief Complaint: New Severe MARTINEZ and Tachycardia after Recent Chest Tube . [facility] Narrative ARYA HUGGINS, is a 58 F with a past medical history of chronic tobacco abuse with a recently diagnosed RLL mass that was initially suspected to be pneumonia that failed to improve after antibiotic treatment; with subsequent iatrogenic pneumothorax after CT guided biopsy on May 10, 2024. After an initial period of monitoring her pneumothorax worsened requiring chest tube placement with patient discharged earlier today with biopsies positive for adenocarcinoma with patient returning to [facility] ER complaining of new severe MARTINEZ and tachycardia after recent chest tube. According to her records her chest tube was placed to suction for the first 24 hours of her admission with an associated virtual resolution of her pneumothorax so she was then transitioned to water-seal for 24 hours with continued stability so the chest tube was then removed in the morning and then after follow-up CXR showed continued improvement she was discharged home on 2L NC in addition to oral Levaquin with a Prednisone taper that she started on Monday, May 13, 2024. She states that she had severe MARTINEZ with her only able to take 10 steps before she became severely hypoxic - but when she got home she became worse with severe exertion after 2 steps with her becoming so SOB she would have to sit down with her oxygen saturations dropping to ~88% with her RR spiking to ~35 bpm in spite of 2L NC and her heart rate increasing into the ~130 bpm range so she decided to come back in for further evaluation and treatment. She also admits to 10/10 chest pain that was pressure-like, Right-sided and made worse with deep breathing and was nonradiating and initially unrelenting and deplete anxiety provoking but then went down to ~8/10 after initial round of treatment. There is no report of fever, chills, nausea, vomiting or diarrhea but she does admit to heightened anxiety due to her mass and recent discharge with subsequent almost immediate decompensation requiring readmission. In the ER her CTA of the chest revealed Right-side Pulmonary Artery Emboli with the most proximal embolus in the RLL arteries with additional evidence of Right Heart Strain plus persistent Right Apical pneumothorax and Right Pleural Effusion with RLL consolidative airspace disease consistent with Pneumonia (suspected to be of nosocomial origin) with radiologist also noting a nodular consolidation in the RUL suspicious for site of metastasis along with Right-sided chest wall soft tissue emphysema. She triggered criteria for sepsis with elevated white count while on steroids with no Left-shift with a corresponding low-index of clinical suspicion for sepsis as she has been on antibiotics for multiple days and afebrile with her hypotension of 90/72 mmHg and increased oxygen requirement of 5L NC are likely to be cardiogenic in origin with a high-index of clinical suspicion for acute severe Right cardiac strain causing her lactic acidosis of 6.1 mmol/L present on admission and elevated initial troponin of 288 pg/mL and a second troponin 510 pg/mL and mimicking sepsis physiology. I spoke the ER attending about the findings of suspected Right heart strain with PE that is suspected to be paraneoplastic with recommendation for direct conversation with supervisor painting department on-call for guidance with help appreciated and formal consult pending in the a.m. as she is notably becoming more hypotensive at 90/72 mmHg (down from her normal range of ~120/~86 mmHg) and she was then admitted to the ICU for ongoing care for status expected to extend beyond 2 midnights. PSHx: History of appendectomy, history of hysterectomy and history of tonsillectomy. [facility] Medical History Smoker Right lower lobe lung mass Home Medications ?Medication ?Instructions ?Recorded ?Last Taken ?Type albuterol sulfate 90 mcg/actuation 2 puff inhalation Q4H PRN 05/06/24 05/10/24 Rx aerosol inhaler (Ventolin HFA) SHORTNESS OF BREATH/WHEEZING #18 grams ibuprofen 200 mg tablet 400 mg PO Q6H PRN FEVER/PAIN 05/06/24 Unknown History levofloxacin 750 mg tablet 750 mg PO Q24H ANTIBIOTIC 05/10/24 05/10/24 History prednisone 10 mg tablet See Taper PO DAILY STEROID 05/10/24 05/10/24 History oxycodone 5 mg tablet 5 mg PO Q4H PRN PRN Pain Score 05/13/24 Unknown Rx 4-10 3 days #10 tabs Allergy/AdvReac Type Severity Reaction Status Date / Time No Known Allergies Allergy Verified 05/13/24 21:15 Family History Mother Heart disease Father Heart disease Diabetes Surgical History Hx of appendectomy History of hysterectomy Hx of tonsillectomy Social History Smoking Status: Former smoker alcohol intake: never substance use type: does not use Vital Signs Vital Signs Vital Signs: 05/13/24 20:30 05/13/24 21:10 05/13/24 21:14 Temperature 96.3 F L Temperature Source Temporal Pulse Rate 123 H Respiratory Rate 26 H Respiratory Effort Respiratory Depth Respiratory Pattern Blood Pressure 104/57 L Blood Pressure Mean 72 Pulse Ox 88 88 93 Oxygen Delivery Method Nasal Cannula Nasal Cannula Nasal Cannula Oxygen Flow Rate (L/min) 3 2 3 05/13/24 21:20 05/13/24 21:43 05/13/24 22:57 Temperature 98.5 F 97.7 F L Temperature Source Temporal Oral Pulse Rate 124 H 115 H Respiratory Rate 31 H 14 Respiratory Effort Short of Breath Labored Respiratory Depth Shallow Respiratory Pattern Tachypnea Blood Pressure 101/71 135/92 H Blood Pressure Mean 81 106 Pulse Ox 93 95 Oxygen Delivery Method Nasal Cannula Nasal Cannula Nasal Cannula Oxygen Flow Rate (L/min) 3 3 3 05/13/24 23:04 Temperature Temperature Source Pulse Rate 115 H Respiratory Rate 22 H Respiratory Effort Respiratory Depth Respiratory Pattern Blood Pressure 135/92 H Blood Pressure Mean 106 Pulse Ox 94 Oxygen Delivery Method Nasal Cannula Oxygen Flow Rate (L/min) 3 Weight Weight: 112 lb Body Mass Index (BMI) 19.2 Physical Exam Const alert, oriented x3 and average body habitus General Appearance: cooperative HEENT normocephalic, head/scalp atraumatic, hearing grossly normal bilaterally and moist oral mucous membranes Eyes PERRL and EOMs intact bilaterally Neck no lymphadenopathy and supple Resp Resp Narrative: Diminished breath sounds over RLL. Cardio regular rate and regular rhythm Cardio Narrative: Sinus tachycardia noted at ~120 bpm. GI normal to inspection, nondistended, normoactive bowel sounds, soft to palpation, non-tender and non-distended Skin Skin Narrative: Patient has no evidence of abscess, jaundice or rash. Neuro oriented x3, CN's II-XII intact bilaterally, moves all extremities and no focal motor deficits Sensorium / Orientation: awake, alert, oriented to person, oriented to place and oriented to time Speech: speech normal Psych Mood & Affect: anxious Results Medical Records Data Attestation: I reviewed the patient's medical records Lab / Micro Data Attestation: I reviewed the patient's lab results. 05/14/24 03:42 05/14/24 04:49 Labs: Laboratory Results - last 24 hr 05/13/24 21:13: WBC 19.1 H, RBC 5.55 H, Hgb 15.2 H, Hct 48.6 H, MCV 87.6, MCH 27.4, MCHC 31.3 L, RDW Std Deviation 41.5, RDW Coeff of Chaitanya 12.9, Plt Count 303, MPV 11.1, Immature Gran % (Auto) 0.700, Neut % (Auto) 91.5 H, Lymph % (Auto) 3.2 L, [place] % (Auto) 4.4, Eos % (Auto) 0.0, Baso % (Auto) 0.2, Absolute Neuts (auto) 17.4 H, Absolute Lymphs (auto) 0.61 L, Nucleated RBC % 0, Sodium 134 L, Potassium 4.3, Chloride 98, Carbon Dioxide 20.0 L, Anion Gap 16 H, BUN 39 H, Creatinine 1.83 H, Estim Creat Clear Calc 27.53, Est GFR (MDRD) Af Amer 37 L, Est GFR (MDRD) Non-Af 30 L, BUN/Creatinine Ratio 21.3 H, Glucose 331 H, Calcium 9.2, Total Bilirubin 1.10 H, Direct Bilirubin 0.50 H, AST 60 H, ALT 92 H, Alkaline Phosphatase 142 H, Troponin I High Sens 288 H*, Total Protein 6.5, Albumin 2.8 L, Globulin 3.7 05/13/24 21:52: Lactic Acid 6.1 H* Imaging Radiology Impression Chest CTA 05/13/24 21:50 IMPRESSION: 1. Right side pulmonary artery emboli. The most proximal embolus is in right lower lobar arteries and this is associated with right heart strain. 2. Persistent right apical pneumothorax similar to the prior CT. 3. Right pleural effusion and right lower lobe consolidative airspace disease consistent with pneumonia. Hypoattenuating regions may be related to infarct within this area. Compared to the prior CT, this appears similar. An underlying mass cannot be excluded. 4. Nodular consolidation in the periphery of the right upper lobe is nonspecific, similar to the prior examination. 5. Mild interstitial thickening suggesting edema particularly at the lung apices. 6. Right-sided chest wall soft tissue emphysema. Electronically Signed: Roman Lemons DO at 22:44 EDT , ADDENDUM: 05/13/24 [id number] IMPRESSION: 1. Right side pulmonary artery emboli. The most proximal embolus is in right lower lobar arteries and this is associated with right heart strain. 2. Persistent right apical pneumothorax similar to the prior CT. 3. Right pleural effusion and right lower lobe consolidative airspace disease consistent with pneumonia. Hypoattenuating regions may be related to infarct within this area. Compared to the prior CT, this appears similar. An underlying mass cannot be excluded. 4. Nodular consolidation in the periphery of the right upper lobe is nonspecific, similar to the prior examination. 5. Mild interstitial thickening suggesting edema particularly at the lung apices. 6. Right-sided chest wall soft tissue emphysema. N.B. : The above Results were Read Back by Roman Lemons DO to Jeovanny Ortega MD, and understanding confirmed on 05/13/2024 22:48:33 (ET). Electronically Signed: oRman Lemons DO at 22:44 EDT , Assessment & Plan Assessment/Plan (1) Acute pulmonary embolism: QUALIFIERS: Acute cor pulmonale presence: with acute cor pulmonale Pulmonary embolism type: other Qualified Code(s): I26.09 - Other pulmonary embolism with acute cor pulmonale (2) Right lower lobe lung mass: (3) Elevated troponin: (4) Shortness of breath: (5) Acute hypotension: (6) Lactic acidosis: (7) History of tobacco abuse: (8) Generalized anxiety disorder: PLAN: Plan 1. CTA of the chest revealed Right-side Pulmonary Artery Emboli with the most proximal embolus in the RLL arteries with additional evidence of Right Heart Strain plus persistent Right Apical pneumothorax and Right Pleural Effusion with RLL consolidative airspace disease consistent with Pneumonia (suspected to be of nosocomial origin) with radiologist also noting a nodular consolidation in the RUL suspicious for site of metastasis along with Right-sided chest wall soft tissue emphysema along with clinical evidence of acute respiratory insufficiency - Continue IV heparin begun in the ER per PE protocol. Continue antibiotics and wean off prednisone as patient has no signs of wheezing/acute bronchospasm at this time. Wean supplemental oxygen as tolerated. 2. Worsening hypotension with blood pressure of 90/72 mmHg complicated by lactic acidosis of 6.1 mmol/L present on admission and elevated initial troponin of 288 pg/mL and a second troponin 510 pg/mL while on steroids and Levaquin complicating #1 with a low-index of clinical suspicion for sepsis as she has been on antibiotics for multiple days and afebrile with her hypotension of 90/72 mmHg and increased oxygen requirement of 5L NC are likely to be cardiogenic in origin - Check echocardiogram to objectively evaluate for evidence of acute Right heart strain. Serialize troponin. Check Doppler of lower extremities to evaluate for evidence of residual clot burden/DVT. Follow-up lactate down to 3.1 mmol/L after initial round of treatment. Finally, due to this patient's previous [facility] course and increasingly fragile constitution we will consult Dr. Holland of [facility] to see this patient on rounds in the a.m. with help appreciated in advance. 3. Chronic tobacco abuse with a recently diagnosed RLL mass that was initially suspected to be pneumonia that failed to improve after antibiotic treatment; with subsequent iatrogenic pneumothorax after CT guided biopsy on May 10, 2024 and subsequent discharge on May 13, 2024 with biopsy returning positive for adenocarcinoma suspected to be causing paraneoplastic VTE causing #1 & #2 with the patient immediately returning to the hospital for worsening shortness of breath and tachycardia as noted in HPI - Noted. 4. Acute anxiety with intermittent bouts of hyperventilation arising from #1 - #3 - Give Xanax as needed for breakthrough symptoms. 5. History of appendectomy - Noted. 6. History of hysterectomy - Noted. 7. History of tonsillectomy - Noted. 8. DVT prophylaxis - Patient already on IV heparin for #1 which will be continued. Total time: Approximately 75 minutes. Charges/Coding Visit Charges Inpatient E&M: 62297 Init Hosp L3
[2024-05-13] MEDS: Heparin Injection (Vial) 5,000 UNIT/ML VIAL 3500 UNIT IV (23:27)
[2024-05-13] MEDS: HEPARIN/D5w 25,000 UNITS 25,000 UNITS/250 ML IV.SOLN. 7 UNITS CONT INF (23:27)
[2024-05-13 23:31] LABS: International Normalized Ratio 1.5; Partial Thromboplast Time 27.7 Seconds (24.1-36.2); Prothrombin Time (Protime)PT. 17.7 SECONDS (11.7-14.9)
[2024-05-14] VITALS (30 sets, daily range): BP systolic 83–126; BP diastolic 63–79; PULSE 97–123; RESP 21–34; TEMP 36.1–37.3; O2SAT 93–100; BMI 20.9
--- NOTE | 2024-05-14 01:28 | ECHOD_ITS ---
Reason For Study: CHEST PAIN Procedure This was a 2D Doppler, Color Flow transthoracic echocardiogram. Myocardial strain analysis was performed in this exam to aid in the assessment of cardiac function. Exam performed portable in ICU/CCU. Left Ventricle Normal LV size. D shaped septum in systole and diastole. Left ventricular systolic function is normal. The left ventricular ejection fraction is 70 %. Stage 1 diastolic dysfunction. No regional wall motion abnormalities noted. Right Ventricle Moderately dilated right ventricle. Mild global right ventricular systolic dysfunction. Apical hyperkinesis present. Atria Normal left atrium. Normal right atrium. Mitral Valve Normal mitral valve. Tricuspid Valve Normal tricuspid valve. Severe (4+) tricuspid valve insufficiency. Pulmonary artery systolic pressure is 102 mmHg. Severe pulmonary hypertension. Aortic Valve Trisinus/trileaflet aortic valve. Pulmonic Valve Normal pulmonic valve. Great Vessels Normal aortic root. The pulmonary artery is normal size. Inferior vena cava collapse with respiration. Pericardium/Pleural No pericardial effusion. MMode/2D Measurements & Calculations LVIDd: 1.8 cm IVSd: 0.94 cm RA A4 area: 14.8 cm2 LVIDs: 1.1 cm LVPWd: 1.2 cm RVDd: 4.5 cm FS: 40.3 % TAPSE: 0.86 cm Time Measurements MV dec time: 0.09 sec Doppler Measurements & Calculations MV E max fox: 42.8 cm/sec Lat Peak E' Fox: 10.3 cm/sec Med Peak E' Fox: 5.1 cm/sec MV A max fox: 80.0 cm/sec E/E' lat: 4.1 E/E' med: 8.4 MV E/A: 0.53 MV V2 max: 94.9 cm/sec Ao V2 max: 85.9 cm/sec MV max P.6 mmHg MV dec slope: 476.3 cm/sec2 Ao max P.9 mmHg MV V2 mean: 56.4 cm/sec Ao V2 mean: 58.5 cm/sec MV mean P.5 mmHg Ao mean P.5 mmHg MV V2 VTI: 14.5 cm Ao V2 VTI: 10.9 cm AV (velocity ratio): 0.62 LV V1 max: 73.1 cm/sec TR max fox: 482.7 cm/sec LV V1 max P.2 mmHg TR max P.2 mmHg LV V1 mean P.79 mmHg LV V1 mean: 38.0 cm/sec LV V1 VTI: 6.7 cm ECHO/Echo Complete Interpretation Summary Normal LV size. Left ventricular systolic function is normal. The left ventricular ejection fraction is 70 %. Stage 1 diastolic dysfunction. D shaped septum in systole and diastole. Pulmonary artery systolic pressure is 102 mmHg. Severe pulmonary hypertension. Ordering Physician: Saul Blood Referring Physician: NO PCP Performed By: Denice Oliveros RCS
[2024-05-14] MEDS: 0.9% Normal Saline (1000mL) 1,000 ML 200 ML IV (01:29)
[2024-05-14] MEDS: Morphine 4 MG/ML Syringe IV (01:32)
[2024-05-14 02:12] LABS: Reflex Lactate? Y
[2024-05-14] MEDS: KCL 20MEQ in 0.9% NS 20 MEQ/1,000 ML IV.SOLN. 100 MEQ IV (02:19)
[2024-05-14] MEDS: Ondansetron 4 MG/2 ML Vial IV (02:20)
[2024-05-14] MEDS: 0.9% Saline Lock 10 ML Syringe IV ×4 (02:21→14:50)
[2024-05-14 03:09] LABS: Base Excess -8 mmol/L (-2 to +2); Bicarbonate 17.8 mmol/L (22-26); Blood Gas Specimen Type ART; Mode Not entered; O2 Delivery Device Cannula; PO2 96 mmHG (75-100); SITE L Radial; SO2 97 % (95-99); Total Carbon Dioxide 19 mmol/L; pCO2 31.3 mmHg (35-45); pH 7.36 (7.35-7.45)
[2024-05-14 03:29] LABS: Lactic Acid 3.1 mmol/L (0.4-1.9)
[2024-05-14 03:49] LABS: Absolute Lymphocyte Count 0.52 X10^3/uL (0.83-4.51); Absolute Neutrophil Count 13.6 X10^3/uL (2.0-7.7); Basophil# 0.02 X10^3/uL; Basophil% 0.1 % (0-1); Hematocrit 41.5 % (37-47); Hemoglobin 13.6 g/dL (12.0-15.0); Lymphocyte # 0.52 X10^3/ul (0.83-4.51); Lymphocyte % 3.4 % (19-41); Mean Corp Hgb Conc 32.8 g/dL (32-36); Mean Corpuscular Hgb 28.2 pg (27.0-32.0); Mean Corpuscular Volume 85.9 fL (81-99); Mean Platelet Vol. 10.8 fl (6.2-12.0); Monocyte# 1.29 X10^3/uL; Monocyte% 8.3 % (0-10); NRBC Flagged by Analyzer 0 % (0-5); Neutrophil # 13.58 X10^3/uL (2.7-7.7); Neutrophil % 87.9 % (47-70); POSITIVE DIFFERENTIAL YES; Platelet Count 220 K/mm3 (150-450); RBC Distribution Width SD 40.7 fl (35.1-43.9); Red Blood Count 4.83 M/mm3 (4.2-5.4); White Blood Count 15.5 K/mm3 (4.4-11.0)
[2024-05-14 05:23] LABS: ALB/GLOB Ratio 0.7 RATIO (0.9-2.4); AST(SGOT) 108 U/L (15-37); Alanine Aminotransfer ALT/SGPT 150 U/L (13-56); Albumin, Serum 2.4 g/dL (3.2-5.0); Alkaline Phosphatase 124 U/L (45-117); Anion Gap 8 (5-15); BUN 41 mg/dL (7-18); BUN/Creat Ratio 32.3 RATIO (10-20); Calcium,Total 8.2 mg/dL (8.5-10.1); Chloride 107 mmol/L (98-107); Creatinine, Serum 1.27 mg/dL (0.55-1.02); EST Glomerular Filtration Rate 46 mL/min (>60); Est Glom Filt Rate - Afr Amer 56 mL/min (>60); Estimated Creatinine Clearance 42.71 ml/min; Globulin 3.4 g/dL (2.2-4.2); Glucose 146 mg/dL (74-106); Magnesium 2.1 mg/dL (1.6-2.6); Phosphorus 4.4 mg/dL (2.5-4.9); Potassium 5.9 mmol/L (3.5-5.1); Protein, Total 5.8 g/dL (6.4-8.2); Sodium Level 137 mmol/L (136-145); Thyroid Stim Hormone (TSH) 1.46 uIU/mL (0.358-3.74); Troponin-I HS 510 pg/mL (3.0-54.0)
[2024-05-14] MEDS: Dextrose 10%-Water 250 ML 999 ML IV (05:38)
[2024-05-14] MEDS: Sodium Polystyrene Sulfonate 15 GM/60 ML UDC PO (05:39)
[2024-05-14] MEDS: 0.9% Normal Saline (1000mL) 1,000 ML 100 ML IV (05:39)
[2024-05-14] MEDS: oxyCODONE 5 MG Tablet PO ×2 (05:47→14:49)
--- NOTE | 2024-05-14 06:00 | RAD_ITS ---
STUDY: X-RAY CHEST REASON FOR EXAM: Female, 58 years old. RLL PNA and Mass with Right PE after recent R PTX. TECHNIQUE: Single AP portable view of the chest. COMPARISON: None. FINDINGS: 1. Unresolved moderate right lower lobe consolidation and small pleural effusion the remaining lung aggarwal are clear 2. Normal heart size 3. Stable osseous structures 4. Stable mediastinal structures 5. No visualized pneumothorax by x-ray. Small amount of right flank subcutaneous air redemonstrated. 6. Recent CT of the chest showed moderate tiny medial right apical pneumothorax with overlying subcutaneous air as well as a right peripheral pulmonary artery embolus There is no demonstrated abnormality of the visualized soft tissue structures of the upper abdomen. RAD/Chest 1 View (Portable) IMPRESSION: No significant interval change. Right lower lobe pulmonary artery emboli with consolidated parenchyma possibly due to infarction and underlying pneumonia or malignancy. Electronically Signed: Rome Lui MD at 11:12 EDT ,
[2024-05-14 06:12] LABS: Partial Thromboplast Time 54.1 Seconds (24.1-36.2)
[2024-05-14] MEDS: Heparin Injection (Vial) 5,000 UNIT/ML VIAL IV ×2 (06:23→18:33)
[2024-05-14] MEDS: Pantoprazole Sodium 40 MG in 0.9% Normal Saline (100mL MB+) 100 ML 330 MG IV (09:34)
[2024-05-14] MEDS: BENZOCAINE/MENTHOL 1 LOZENGE MUCOUS MEM (09:34)
--- NOTE | 2024-05-14 09:39 | PN.HOSP_ITS ---
Subjective Subjective Doing well, feels about the same as when she came in Objective Data Objective Data Vital Signs: Vital Signs Temp Pulse Resp BP Pulse Ox O2 Del Method O2 Flow Rate 96.9 F L 114 H 22 H 83/63 L 95 Nasal Cannula 4 05/14/24 04:00 05/14/24 09:00 05/14/24 09:00 05/14/24 09:00 05/14/24 09:00 05/14/24 09:00 05/14/24 09:00 Oxygen Flow Rate (L/min) 4 Oxygen Delivery Method Nasal Cannula Weight: 122 lb 2.177 oz Body Mass Index (BMI) 20.9 Intake & Output: Intake and Output for Last 24 Hours 05/13/24 05/14/24 05/15/24 03:59 03:59 03:59 Intake Total 2146.67 / 2146.67 767.6 / 767.6 Output Total 150 / 150 200 / 200 Balance 67 / 567.6 / 567.6 Lab / Micro Data 05/14/24 03:42 05/14/24 04:49 Labs: Laboratory Results - last 24 hr 05/13/24 21:13: WBC 19.1 H, RBC 5.55 H, Hgb 15.2 H, Hct 48.6 H, MCV 87.6, MCH 27.4, MCHC 31.3 L, RDW Std Deviation 41.5, RDW Coeff of Chaitanya 12.9, Plt Count 303, MPV 11.1, Immature Gran % (Auto) 0.700, Neut % (Auto) 91.5 H, Lymph % (Auto) 3.2 L, [place] % (Auto) 4.4, Eos % (Auto) 0.0, Baso % (Auto) 0.2, Absolute Neuts (auto) 17.4 H, Absolute Lymphs (auto) 0.61 L, Nucleated RBC % 0, Sodium 134 L, Potassium 4.3, Chloride 98, Carbon Dioxide 20.0 L, Anion Gap 16 H, BUN 39 H, C reatinine 1.83 H, Estim Creat Clear Calc 27.53, Est GFR (MDRD) Af Amer 37 L, Est GFR (MDRD) Non-Af 30 L, BUN/Creatinine Ratio 21.3 H, Glucose 331 H, Calcium 9.2, Total Bilirubin 1.10 H, Direct Bilirubin 0.50 H, AST 60 H, ALT 92 H, Alkaline Phosphatase 142 H, Troponin I High Sens 288 H*, Total Protein 6.5, Albumin 2.8 L , Globulin 3.7 05/13/24 21:52: Lactic Acid 6.1 H* 05/13/24 23:14: PT 17.7 H, INR 1.5, APTT 27.7 05/14/24 02:30: Lactic Acid 3.1 H* 05/14/24 03:42: WBC 15.5 H, RBC 4.83, Hgb 13.6, Hct 41.5, MCV 85.9, MCH 28.2, MCHC 32.8, RDW Std Deviation 40.7, RDW Coeff of Chaitanya 13.0, Plt Count 220, MPV 10.8, Immature Gran % (Auto) 0.300, Neut % (Auto) 87.9 H, Lymph % (Auto) 3.4 L, [place] % (Auto) 8.3, Eos % (Auto) 0.0, Baso % (Auto) 0.1, Absolute Neuts (auto) 13.6 H, Absolute Lymphs (auto) 0.52 L, Nucleated RBC % 0, Sodium Cancelled, Potassium Cancelled, Chloride Cancelled, Carbon Dioxide Cancelled, Anion Gap Cancelled, BUN Cancelled, Creatinine Cancelled, Estim Creat Clear Calc Cancelled, Est GFR (MDRD) Af Amer Cancelled, Est GFR (MDRD) Non-Af Cancelled, BUN/Creatinine Ratio Cancelled, Glucose Cancelled, Calcium Cancelled, Phosphorus Cancelled, Magnesium Cancelled, Total Bilirubin Cancelled, AST Cancelled, ALT Cancelled, Alkaline Phosphatase Cancelled, Total Protein Cancelled, Albumin Cancelled, Globulin Cancelled, Albumin/Globulin Ratio Cancelled, TSH Cancelled 05/14/24 04:49: Sodium 137, Potassium 5.9 H, Chloride 107, Carbon Dioxide 22.0, Anion Gap 8, BUN 41 H, Creatinine 1.27 H, Estim Creat Clear Calc 42.71, Est GFR (MDRD) Af Amer 56 L, Est GFR (MDRD) Non-Af 46 L, BUN/Creatinine Ratio 32.3 H, G lucose 146 H, Calcium 8.2 L, Phosphorus 4.4, Magnesium 2.1, Total Bilirubin 0.90, AST 108 H, ALT 150 H, Alkaline Phosphatase 124 H, Troponin I High Sens 510 H*, Total Protein 5.8 L, Albumin 2.4 L, Globulin 3.4, Albumin/Globulin Ratio 0.7 L, TSH 1.46 05/14/24 05:30: APTT 54.1 H ABG Data ABG results: ABG 05/14/24 03:04 Specimen Type ART Sample Site L Radial pH 7.36 Bicarbonate Actual 17.8 L Total CO2 19 Base Excess -8 L O2 Saturation 97 O2 % 5.0 ABG pCO2 31.3 L ABG pO2 96 O2 Delivery Device Cannula Vent Mode Not entered Radiography Diagnostic Testing: Radiology Impression Chest X-Ray 05/13/24 21:30 IMPRESSION: 1. Small apical right-sided pneumothorax is similar to the prior radiograph. 2. Persistent right basilar pulmonary opacity correlating with prior examinations and presumptively the biopsied lesion. Electronically Signed: Roman Lemons DO at 22:03 EDT , Chest CTA 05/13/24 21:50 IMPRESSION: 1. Right side pulmonary artery emboli. The most proximal embolus is in right lower lobar arteries and this is associated with right heart strain. 2. Persistent right apical pneumothorax similar to the prior CT. 3. Right pleural effusion and right lower lobe consolidative airspace disease consistent with pneumonia. Hypoattenuating regions may be related to infarct within this area. Compared to the prior CT, this appears similar. An underlying mass cannot be excluded. 4. Nodular consolidation in the periphery of the right upper lobe is nonspecific, similar to the prior examination. 5. Mild interstitial thickening suggesting edema particularly at the lung apices. 6. Right-sided chest wall soft tissue emphysema. Electronically Signed: Roman Lemons DO at 22:44 EDT , ADDENDUM: 05/13/24 0754 IMPRESSION: 1. Right side pulmonary artery emboli. The most proximal embolus is in right lower lobar arteries and this is associated with right heart strain. 2. Persistent right apical pneumothorax similar to the prior CT. 3. Right pleural effusion and right lower lobe consolidative airspace disease consistent with pneumonia. Hypoattenuating regions may be related to infarct within this area. Compared to the prior CT, this appears similar. An underlying mass cannot be excluded. 4. Nodular consolidation in the periphery of the right upper lobe is nonspecific, similar to the prior examination. 5. Mild interstitial thickening suggesting edema particularly at the lung apices. 6. Right-sided chest wall soft tissue emphysema. N.B. : The above Results were Read Back by Roman Lemons DO to Jeovanny Ortega MD, and understanding confirmed on 05/13/2024 22:48:33 (ET). Electronically Signed: Roman Lemons DO at 22:44 EDT , Physical Exam Narrative General: Alert, Oriented x3, Cooperative, mild to moderate respiratory distress HEENT: Atraumatic, PERRLA, EOMI, Normocephalic Oral: Moist Mucosa Neck: Supple, No JVD Lungs: Diminished, Normal air movement, No rhonchi, No wheeze, No rales, tachypneic Cardiovascular: Tachycardic, Regular Rhythm, Normal S1, Normal S2, No murmurs Abdomen: Soft, Non Tender, Non-Distended, No Hepato-splenomegaly Extremities: No edema, Capillary Refill Less than 3 Seconds Skin: No rashes, No breakdown Musculoskeletal: No Tenderness to Palpation of Joints or Extremities Neurological: No focal neurological deficits, Motor Exam 5/5 strength throughout, Sensory exam intact to light touch and pain Psych/Mental Status: Normal Affect, Appropriate Assessment & Plan Assessment/Plan (1) Acute pulmonary embolism: QUALIFIERS: Pulmonary embolism type: other Acute cor pulmonale presence: with acute cor pulmonale Qualified Code(s): I26.09 - Other pulmonary embolism with acute cor pulmonale (2) Right lower lobe lung mass: PLAN: Plan 1. Acute hypoxic respiratory failure secondary to right segmental PE in the setting of a recent pneumothorax and right lung adenocarcinoma ? Continue with heparin drip, vascular surgery has been consulted for possible thrombectomy ? She does have right RV strain will obtain an echo ? If no thrombectomy will transition to Eliquis and monitor ? She still does have a slight right apical pneumo ? Continue with antibiotic therapy as well as steroids as she was recently diagnosed with pneumonia and may also have a component of COPD given her history of tobacco abuse ? Will cancel Doppler of the legs ? She does have hypotension and is on IV fluids, she is not lightheaded dizzy or altered in any way 2. Anxiety ? Will start her on as needed Ativan DVT: Heparin drip Charges/Coding Visit Charges Inpatient E&M: 23995 Subs Hosp L2
[2024-05-14] MEDS: Ensure Plus High Protein 120 ML LIQUID PO ×2 (11:19→17:13)
[2024-05-14 12:44] LABS: Partial Thromboplast Time 58.5 Seconds (24.1-36.2)
--- NOTE | 2024-05-14 14:42 | CASEMGMT ---
JOSH JASSO chart review: Patient was admitted 05/10-05/13/24 for right sided pneumothorax. See assessment from 05/11/24. Patient was discharged to home with home oxygen with [employer]. Patient returned to ED on 05/13/24 for severe dyspnea on exertion and was admitted for acute hypoxic respiratory failure secondary to right segmental PE in the setting of a recent pneumothorax and right lung adenocarcinoma. JOSH JASSO in to discuss readmission. Patient states her oxygen was delivered without any issues. Patient states that she may be transferred to [facility] if she does not improve. JOSH JASSO updated patient that CM will continue to follow and assist with needs. Patient had no further questions or concerns.
--- NOTE | 2024-05-14 14:56 | CASEMGMT ---
Tertiary facilities in-network with patient's insurance: [facility], [facility], , [facility], [facility], [facility], [place], [facility].
[2024-05-14 18:29] LABS: Partial Thromboplast Time 44.1 Seconds (24.1-36.2)
[2024-05-14] MEDS: levoFLOXacin 750 MG Tablet PO (21:40)
[2024-05-15] VITALS (26 sets, daily range): BP systolic 75–110; BP diastolic 55–78; PULSE 94–114; RESP 23–40; TEMP 36.6–36.8; O2SAT 91–98; BMI 21.2
[2024-05-15] MEDS: oxyCODONE 5 MG Tablet PO ×3 (00:44→19:00)
[2024-05-15] MEDS: 0.9% Saline Lock 10 ML Syringe IV ×2 (00:45→10:38)
[2024-05-15 01:07] LABS: Partial Thromboplast Time 51.6 Seconds (24.1-36.2)
[2024-05-15] MEDS: Heparin Injection (Vial) 5,000 UNIT/ML VIAL IV ×2 (02:10→19:02)
[2024-05-15] MEDS: Acetaminophen 325 MG Tablet 650 MG PO ×2 (02:13→19:58)
[2024-05-15] MEDS: LORazepam 1 MG Tablet PO ×2 (02:14→16:34)
[2024-05-15] MEDS: HEPARIN/D5w 25,000 UNITS 25,000 UNITS/250 ML IV.SOLN. 10 UNITS CONT INF (05:02)
[2024-05-15 05:11] LABS: Absolute Neutrophil Count 14.4 X10^3/uL (2.0-7.7); Basophil# 0.06 X10^3/uL; Basophil% 0.4 % (0-1); Hematocrit 39.7 % (37-47); Lymphocyte % 4.7 % (19-41); Mean Corp Hgb Conc 32.7 g/dL (32-36); Mean Corpuscular Hgb 27.3 pg (27.0-32.0); Mean Corpuscular Volume 83.4 fL (81-99); Mean Platelet Vol. 11.5 fl (6.2-12.0); Monocyte# 1.82 X10^3/uL; Monocyte% 10.6 % (0-10); NRBC Flagged by Analyzer 0 % (0-5); Neutrophil # 14.38 X10^3/uL (2.7-7.7); Neutrophil % 83.9 % (47-70); POSITIVE DIFFERENTIAL YES; Platelet Count 209 K/mm3 (150-450); RBC Distribution Width CV 13.1 % (11.6-14.6); RBC Distribution Width SD 39.9 fl (35.1-43.9); Red Blood Count 4.76 M/mm3 (4.2-5.4); White Blood Count 17.1 K/mm3 (4.4-11.0)
[2024-05-15 05:57] LABS: Anion Gap 10 (5-15); BUN 56 mg/dL (7-18); BUN/Creat Ratio 40.9 RATIO (10-20); Calcium,Total 8.6 mg/dL (8.5-10.1); Chloride 102 mmol/L (98-107); Creatinine, Serum 1.37 mg/dL (0.55-1.02); EST Glomerular Filtration Rate 42 mL/min (>60); Est Glom Filt Rate - Afr Amer 51 mL/min (>60); Estimated Creatinine Clearance 39.59 ml/min; Glucose 147 mg/dL (74-106); Potassium 5.2 mmol/L (3.5-5.1); Sodium Level 133 mmol/L (136-145)
[2024-05-15 05:58] LABS: Differential Indicated SCAN CRITERIA MET
[2024-05-15] MEDS: Furosemide 40 MG/4 ML Vial IV ×2 (08:25→18:41)
--- NOTE | 2024-05-15 09:17 | PN.HOSP_ITS ---
Subjective Subjective Resting comfortably, no new issues overnight. I discussed with her the vascular surgery did not feel that they would be able to retrieve the clot given how distal it is and that it was unlikely that the PE was causing significant symptoms. I discussed with her the potential for transferring to another hospital for further evaluation from a pulmonary standpoint however she said that she would like to wait another 24 to 48 hours to see if the heparin made a difference in her symptoms. Objective Data Objective Data Vital Signs: Vital Signs Temp Pulse Resp BP Pulse Ox O2 Del Method O2 Flow Rate 98.2 F 94 24 H 81/69 L 94 Nasal Cannula 5 05/15/24 04:00 05/15/24 06:00 05/15/24 06:00 05/15/24 06:00 05/15/24 07:11 05/15/24 07:11 05/15/24 07:11 Oxygen Flow Rate (L/min) 5 Oxygen Delivery Method Nasal Cannula Weight: 123 lb 7.342 oz Body Mass Index (BMI) 21.2 Intake & Output: Intake and Output for Last 24 Hours 05/14/24 05/15/24 05/16/24 03:59 03:59 03:59 Intake Total 2146.67 / 2146.67 2071.22 / 2071.22 178.67 / 178.67 Output Total 150 / 150 450 / 450 100 / 100 Balance 1995.67 / 1995. 1621.22 / 162.22 78.67 / 78.67 Lab / Micro Data 05/15/24 05:05 05/15/24 05:05 Labs: Laboratory Results - last 24 hr 05/14/24 12:10: APTT 58.5 H 05/14/24 18:05: APTT 44.1 H 05/15/24 00:30: APTT 51.6 H 05/15/24 05:05: WBC 17.1 H, RBC 4.76, Hgb 13.0, Hct 39.7, MCV 83.4, MCH 27.3, MCHC 32.7, RDW Std Deviation 39.9, RDW Coeff of Chaitanya 13.1, Plt Count 209, MPV 11.5, Immature Gran % (Auto) 0.400, Neut % (Auto) 83.9 H, Lymph % (Auto) 4.7 L, Hancock % (Auto) 10.6 H, Eos % (Auto) 0.0, Baso % (Auto) 0.4, Absolute Neuts (auto) 14.4 H, Absolute Lymphs (auto) 0.80 L, Nucleated RBC % 0, Sodium 133 L, P otassium 5.2 H, Chloride 102, Carbon Dioxide 21.0, Anion Gap 10, BUN 56 H, C reatinine 1.37 H, Estim Creat Clear Calc 39.59, Est GFR (MDRD) Af Amer 51 L, Est GFR (MDRD) Non-Af 42 L, BUN/Creatinine Ratio 40.9 H, Glucose 147 H, Calcium 8.6 Radiography Diagnostic Testing: Radiology Impression Echocardiogram 05/14/24 01:28 Interpretation Summary Normal LV size. Left ventricular systolic function is normal. The left ventricular ejection fraction is 70 %. Stage 1 diastolic dysfunction. D shaped septum in systole and diastole. Pulmonary artery systolic pressure is 102 mmHg. Severe pulmonary hypertension. Ordering Physician: Saul Blood Referring Physician: TESS PCP Performed By: Denice Oliveros RCS Chest X-Ray 05/14/24 06:00 IMPRESSION: No significant interval change. Right lower lobe pulmonary artery emboli with consolidated parenchyma possibly due to infarction and underlying pneumonia or malignancy. Electronically Signed: Rome Lui MD at 11:12 EDT Reading Location ID and State: [facility] / [place] , Service support , Physical Exam Narrative General: Alert, Oriented x3, Cooperative, mild to moderate respiratory distress HEENT: Atraumatic, PERRLA, EOMI, Normocephalic Oral: Moist Mucosa Neck: Supple, No JVD Lungs: Diminished, Normal air movement, No rhonchi, No wheeze, No rales, tachypneic Cardiovascular: Tachycardic, Regular Rhythm, Normal S1, Normal S2, No murmurs Abdomen: Soft, Non Tender, Non-Distended, No Hepato-splenomegaly Extremities: No edema, Capillary Refill Less than 3 Seconds Skin: No rashes, No breakdown Musculoskeletal: No Tenderness to Palpation of Joints or Extremities Neurological: No focal neurological deficits, Motor Exam 5/5 strength throughout, Sensory exam intact to light touch and pain Psych/Mental Status: Normal Affect, Appropriate Assessment & Plan Assessment/Plan (1) Acute pulmonary embolism: QUALIFIERS: Pulmonary embolism type: other Acute cor pulmonale presence: with acute cor pulmonale Qualified Code(s): I26.09 - Other pulmonary embolism with acute cor pulmonale (2) Right lower lobe lung mass: PLAN: Plan 1. Acute hypoxic respiratory failure secondary to right segmental PE in the setting of a recent pneumothorax and right lung adenocarcinoma with severe pulmonary hypertension/DONALD ? Continue with heparin drip, vascular surgery has been consulted for possible thrombectomy ?Echo demonstrates pulmonary artery systolic pressure of 102 mmHg, will start Lasix ? If no thrombectomy will transition to Eliquis and monitor ? She still does have a slight right apical pneumo ? Continue with antibiotic therapy as well as steroids as she was recently diagnosed with pneumonia and may also have a component of COPD given her history of tobacco abuse ? Will cancel Doppler of the legs ? She does have hypotension and is on IV fluids, she is not lightheaded dizzy or altered in any way ? Creatinine is up to 1.37 today baseline 0.88, this is likely due to poor perfusion from her peripheral artery pressures hopefully will improve with Lasix 2. Anxiety ? Will start her on as needed Ativan DVT: Heparin drip Charges/Coding Visit Charges Inpatient E&M: 01542 Subs Hosp L2
[2024-05-15 10:05] LABS: Partial Thromboplast Time 92.7 Seconds (24.1-36.2)
[2024-05-15 10:23] LABS: Differential Comment SCANNED
[2024-05-15] MEDS: Pantoprazole Sodium 40 MG in 0.9% Normal Saline (100mL MB+) 100 ML 330 MG IV (10:36)
[2024-05-15] MEDS: Ensure Plus High Protein 120 ML LIQUID PO (16:34)
[2024-05-15 18:37] LABS: Partial Thromboplast Time 44.7 Seconds (24.1-36.2)
--- NOTE | 2024-05-15 20:00 | NURSING ---
Addendum entered by Hu Bullock 05/16/24 06:51: Was able to reconvene with Blanche MORENO this AM in order to rectify EMAR in regards to the 1900 PRN Oxyir 5mg on 05/15/24. All charting regarding this instance has been corrected. Original Note: RN completed pain assessment for patient, with 8/10 chest pain noted. Prior to medicating in the MAR, last administration of Tylenol 650mg was given at 0213 and last Oxyir 5mg was given at 1036 hours. After discussing options with patient for pain control, this RN attempted to go and retrieve Tylenol and Oxyir. [id number] flashed warning for the Oxyir 5 mg that last dose had been pulled close to 1845 hours. RN asked patient if she had taken a pain pill shortly before shift change and the patient stated that she had. This RN also recalled during shift change that RN Blanche had stated that she had just given the patient more pain medication. Patient was showing subtle signs of sedation, while also stating that her pain had been improving. This RN only administered the 650 mg Tylenol for pain. It is considered that patient received Oxyir around 1900 hours, next administration will be no sooner than 2300 hours on 05/15/24 in order to not exceed dosage limits set for Oxyir. Patient resting comfortably with eyes shut, will continue to monitor.
[2024-05-16] VITALS (21 sets, daily range): BP systolic 86–105; BP diastolic 61–85; PULSE 95–108; RESP 17–33; TEMP 36.1–36.7; O2SAT 91–98; BMI 21.3
[2024-05-16] MEDS: oxyCODONE 5 MG Tablet PO ×4 (00:53→21:06)
[2024-05-16 05:49] LABS: Absolute Lymphocyte Count 0.78 X10^3/uL (0.83-4.51); Basophil# 0.03 X10^3/uL; Basophil% 0.2 % (0-1); Hematocrit 39.6 % (37-47); Hemoglobin 13.1 g/dL (12.0-15.0); Lymphocyte # 0.78 X10^3/ul (0.83-4.51); Lymphocyte % 5.4 % (19-41); Mean Corp Hgb Conc 33.1 g/dL (32-36); Mean Corpuscular Hgb 27.6 pg (27.0-32.0); Mean Corpuscular Volume 83.4 fL (81-99); Mean Platelet Vol. 11.8 fl (6.2-12.0); Monocyte# 1.55 X10^3/uL; Monocyte% 10.7 % (0-10); NRBC Flagged by Analyzer 0 % (0-5); Neutrophil # 12.04 X10^3/uL (2.7-7.7); Neutrophil % 83.4 % (47-70); POSITIVE DIFFERENTIAL YES; Platelet Count 228 K/mm3 (150-450); RBC Distribution Width CV 13.1 % (11.6-14.6); RBC Distribution Width SD 39.8 fl (35.1-43.9); Red Blood Count 4.75 M/mm3 (4.2-5.4); White Blood Count 14.5 K/mm3 (4.4-11.0)
[2024-05-16 06:17] LABS: Anion Gap 9 (5-15); BUN 65 mg/dL (7-18); BUN/Creat Ratio 45.8 RATIO (10-20); Calcium,Total 9.2 mg/dL (8.5-10.1); Chloride 100 mmol/L (98-107); Creatinine, Serum 1.42 mg/dL (0.55-1.02); EST Glomerular Filtration Rate 41 mL/min (>60); Est Glom Filt Rate - Afr Amer 49 mL/min (>60); Glucose 150 mg/dL (74-106); Potassium 4.9 mmol/L (3.5-5.1); Sodium Level 131 mmol/L (136-145)
[2024-05-16 06:45] LABS: Differential Indicated SCAN CRITERIA MET
[2024-05-16] MEDS: Ensure Plus High Protein 120 ML LIQUID PO ×3 (08:29→18:46)
[2024-05-16] MEDS: Furosemide 40 MG/4 ML Vial IV ×2 (09:21→18:46)
[2024-05-16] MEDS: Pantoprazole Sodium 40 MG in 0.9% Normal Saline (100mL MB+) 100 ML 330 MG IV (09:21)
[2024-05-16] MEDS: Heparin Injection (Vial) 5,000 UNIT/ML VIAL IV (09:28)
[2024-05-16] MEDS: APIXABAN 5 MG TABLET 10 MG PO ×2 (10:51→20:58)
--- NOTE | 2024-05-16 12:38 | PCM.PN.HOSP ---
Reason for Visit Reason for Visit: Diagnoses Acidosis, unspecified (05/14/24) Generalized anxiety disorder (05/14/24) Other pulmonary embolism with acute cor pulmonale (05/14/24) Other pulmonary embolism without acute cor pulmonale (05/14/24) Hypotension, unspecified (05/14/24) Pneumonia, unspecified organism (05/14/24) Shortness of breath (05/14/24) Other specified abnormal findings of blood chemistry (05/14/24) Other nonspecific abnormal finding of lung field (05/14/24) Subjective Subjective Saw patient at bedside in the ICU this morning, significant other present. Patient was fatigued appearing but otherwise sitting up comfortably in bed, conversing normally, in no acute distress. Patient reported feeling slightly improved today compared to previous days. She was breathing comfortably on 2 L nasal cannula at rest with oxygen saturations in the low to mid 90s. She had not tried to get up out of bed yet this morning. She reported some mild right-sided chest pain at the previous chest tube site but otherwise denied any acute pain or discomfort. No other new concerns today. Objective Data Objective Data Vital Signs: Vital Signs Temp Pulse Resp BP Pulse Ox O2 Del Method O2 Flow Rate 97.9 F 105 H 26 H 92/67 91 Nasal Cannula 2 05/16/24 08:00 05/16/24 10:00 05/16/24 10:00 05/16/24 10:00 05/16/24 10:00 05/16/24 10:00 05/16/24 10:00 Oxygen Flow Rate (L/min) 2 Oxygen Delivery Method Nasal Cannula Weight: 56.4 kg Body Mass Index (BMI) 21.3 Intake & Output: Intake and Output for Last 24 Hours 05/14/24 05/15/24 05/16/24 23:59 23:59 23:59 Intake Total 3149.34 / 3149.34 926.35 / 1071.20 850.87 / 850.87 Output Total 600 / 600 360 / 410 150 / 150 Balance 2549.34 / 2549.34 566.35 / 661.20 700.87 / 700.87 Lab / Micro Data 05/16/24 05:30 05/16/24 05:30 Labs: Laboratory Results - last 24 hr 05/15/24 17:40: APTT 44.7 H 05/16/24 00:50: APTT 58.0 H 05/16/24 05:30: WBC 14.5 H, RBC 4.75, Hgb 13.1, Hct 39.6, MCV 83.4, MCH 27.6, MCHC 33.1, RDW Std Deviation 39.8, RDW Coeff of Chaitanya 13.1, Plt Count 228, MPV 11.8, Immature Gran % (Auto) 0.300, Neut % (Auto) 83.4 H, Lymph % (Auto) 5.4 L, Bradley % (Auto) 10.7 H, Eos % (Auto) 0.0, Baso % (Auto) 0.2, Absolute Neuts (auto) 12.0 H, Absolute Lymphs (auto) 0.78 L, Nucleated RBC % 0, Differential Comment COMMENT, Diff Path Review March, Sodium 131 L, Potassium 4.9, Chloride 100, Carbon Dioxide 22.0, Anion Gap 9, BUN 65 H, Creatinine 1.42 H, Estim Creat Clear Calc 38.20, Est GFR (MDRD) Af Amer 49 L, Est GFR (MDRD) Non-Af 41 L, BUN/Creatinine Ratio 45.8 H, Glucose 150 H, Calcium 9.2 05/16/24 07:55: APTT 53.0 H Physical Exam Const alert, oriented x3 and no apparent distress Constitutional Narrative: Middle-age female, fatigued appearing, otherwise sitting up comfortably in bed, conversing normally, in no acute distress. General Appearance: cooperative and comfortable HEENT normocephalic, head/scalp atraumatic, hearing grossly normal bilaterally, nasal mucous membranes and turbinates normal and moist oral mucous membranes Eyes PERRL, EOMs intact bilaterally and conjunctivae normal Neck full ROM Chest inspection of chest normal Resp normal respiratory effort, normal air movement, no use of accessory muscles and clear to auscultation bilaterally Cardio regular rate, regular rhythm, no murmurs and peripheral pulses 2+ throughout GI normal to inspection, nondistended, normoactive bowel sounds, soft to palpation, non-tender and non-distended Back/Spine normal ROM Extremity normal to inspection, full ROM and no pedal edema Skin no rashes or lesions noted Neuro moves all extremities and no focal motor deficits Speech: speech normal Psych mental status grossly normal Mood & Affect: anxious Assessment & Plan Assessment/Plan (1) Acute pulmonary embolism: QUALIFIERS: Pulmonary embolism type: other Acute cor pulmonale presence: with acute cor pulmonale Qualified Code(s): I26.09 - Other pulmonary embolism with acute cor pulmonale (2) Hypoxia: (3) Acute kidney injury: (4) Right lower lobe lung mass: (5) Acute hypotension: (6) Generalized anxiety disorder: PLAN: Plan Patient is a 58-year-old female who presented to [facility] ED on 05/13/2024 with worsening iatrogenic right-sided pneumothorax. 1. Acute hypoxic respiratory failure with acute hypotension secondary to right segmental moderate risk PE in the setting of a recent pneumothorax and right lung adenocarcinoma with severe pulmonary hypertension Had CT-guided right lung biopsy done on 05/10 that was complicated by pneumothorax requiring chest tube placement. Was hospitalized from 05/10 to 05/13 for this. Chest tube was removed on 05/13 by surgery. Patient was hypoxic requiring up to 5 L during that hospitalization, was weaned to 2 L on discharge. She unfortunately had ongoing significant dyspnea on exertion on discharge on 05/13 and returned to the ED on the evening of 05/13. Was found on CTA chest to have a right-sided pulmonary artery emboli with associated right heart strain, along with persistent right apical pneumothorax similar to prior CT and right pleural effusion and right lower lobe consolidative airspace disease consistent with pneumonia. Echo on 05/14 showed EF 70%, moderately dilated RV with mild global RV systolic dysfunction and severe pulm hypertension with PASP 102 mmHg. Was hypotensive on admit requiring ICU admission. Case was discussed with vascular surgery, not amenable to thrombectomy given distal location of clot. Was treated with heparin drip with improvement. ? Corporate Law Specialist and general surgery followed. Transition from heparin drip to Eliquis at DVT dosing on 05/16. Blood pressure normotensive and stable on 05/16, transferred out of ICU. Treating with IV Levaquin, will plan to complete 5-day course of antibiotics total. Patient satting well on 2 L nasal cannula, notably does have home oxygen in place after recent discharge on 05/13. Was started on IV Lasix 40 mg twice daily for increased pulmonary pressures, will continue this through the evening of 05/16. The patient continues to improve, likely okay for home in the next 1 to 2 days. Will need close outpatient follow-up with oncology for her newly diagnosed adenocarcinoma. 2. DONALD ? Was at baseline with creatinine 0.88 on 05/10. Creatinine worsened to 1.83 on 05/13, suspected prerenal etiology with some degree of ATN in setting of PE with hypotension on admit as noted above. Creatinine improved to 1.27 on 05/14, now remaining stable around 1.3-1.4. Has had good urine output. Continue to monitor BMP and urine output daily. 3. Anxiety ? History of generalized anxiety disorder, not on any medication. Has had significant anxiety since previous hospitalization given new cancer diagnosis and major significant complications of PE and pneumothorax as noted above. Treating with p.o. Ativan 3 times daily as needed for now. 4. Mild hyponatremia ? Sodium in normal range on admit, decreased to 131 on 05/16. Unclear etiology. Monitor BMP daily. 5. Hyperkalemia, improving ? Potassium 5.9 on 05/14, presumed secondary to DONALD as noted above. Improving with IV Lasix as noted above, most recent potassium 4.9. Continue to monitor daily BMP. 6. Former tobacco abuse ? Encouraged continued cessation. DVT prophylaxis: Not indicated, on therapeutic Eliquis CODE STATUS: DNR CCA, DNI Expected disposition: Home, 1 to 2 days Total clinical time spent by myself addressing the patient's medical issues, reviewing all the data, and collaborating with patient's care team: 35 minutes. Charges/Coding Visit Charges Inpatient E&M: 73740 Subs Hosp L2
[2024-05-16 14:18] LABS: Pathologist Review Reviewed
[2024-05-16 14:25] LABS: Pathologist Review Reviewed
[2024-05-16] MEDS: levoFLOXacin 750 MG Tablet PO (20:59)
[2024-05-16] MEDS: 0.9% Saline Lock 10 ML Syringe IV (21:01)
[2024-05-17] VITALS (14 sets, daily range): BP systolic 90–110; BP diastolic 67–78; PULSE 89–102; RESP 10–24; TEMP 3–37.4; O2SAT 93–96; BMI 21.3
[2024-05-17] MEDS: oxyCODONE 5 MG Tablet PO (04:04)
[2024-05-17] MEDS: Acetaminophen 325 MG Tablet 650 MG PO ×2 (06:16→19:59)
[2024-05-17 07:13] LABS: Anion Gap 8 (5-15); BUN 67 mg/dL (7-18); BUN/Creat Ratio 58.8 RATIO (10-20); Chloride 100 mmol/L (98-107); Creatinine, Serum 1.14 mg/dL (0.55-1.02); EST Glomerular Filtration Rate 52 mL/min (>60); Est Glom Filt Rate - Afr Amer 63 mL/min (>60); Estimated Creatinine Clearance 47.58 ml/min; Glucose 119 mg/dL (74-106); Potassium 4.2 mmol/L (3.5-5.1); Sodium Level 132 mmol/L (136-145)
[2024-05-17] MEDS: LORazepam 1 MG Tablet PO (08:49)
[2024-05-17] MEDS: Ondansetron 4 MG/2 ML Vial IV (09:02)
[2024-05-17] MEDS: 0.9% Saline Lock 10 ML Syringe IV ×2 (09:02→22:23)
[2024-05-17] MEDS: Pantoprazole Sodium 40 MG Tablet PO (11:07)
[2024-05-17] MEDS: APIXABAN 5 MG TABLET 10 MG PO ×2 (11:07→21:22)
--- NOTE | 2024-05-17 11:56 | PN.HOSP_ITS ---
Reason for Visit Reason for Visit: Diagnoses Acidosis, unspecified (05/14/24) Generalized anxiety disorder (05/14/24) Other pulmonary embolism with acute cor pulmonale (05/14/24) Other pulmonary embolism without acute cor pulmonale (05/14/24) Hypotension, unspecified (05/14/24) Pneumonia, unspecified organism (05/14/24) Acute kidney failure, unspecified (05/14/24) Shortness of breath (05/14/24) Hypoxemia (05/14/24) Other specified abnormal findings of blood chemistry (05/14/24) Other nonspecific abnormal finding of lung field (05/14/24) Subjective Subjective Saw patient at bedside this morning, significant other present. Patient continued to appear fatigued but was otherwise sitting up comfortably in bed, conversing normally, in no acute distress. She was breathing comfortably on 4 L nasal cannula at rest. Stated that she was able to get up and work with physical therapy yesterday afternoon for about half an hour and did better than she expected, though she was very fatigued after the therapy session. She denied any significant shortness of breath with exertion during therapy. Her main concern this morning are that she continues to have mild swelling of her legs and her throat is somewhat sore. Her significant other was concerned about her being on both Ativan as needed for anxiety and oxycodone for pain, and I assured him that with low doses as needed of both she is at very low risk for significant respiratory depression. Patient and significant other were on board for working with therapy today with the hope of discharge home in the next 1 to 2 days. No other new concerns today. Objective Data Objective Data Vital Signs: Vital Signs Temp Pulse Resp BP Pulse Ox O2 Del Method O2 Flow Rate 97.6 F L 90 20 H 96/71 96 Nasal Cannula 4 05/17/24 10:00 05/17/24 10:00 05/17/24 10:00 05/17/24 10:00 05/17/24 10:00 05/17/24 10:00 05/17/24 10:00 Oxygen Flow Rate (L/min) 4 Oxygen Delivery Method Nasal Cannula Weight: 56.3 kg Body Mass Index (BMI) 21.3 Intake & Output: Intake and Output for Last 24 Hours 05/15/24 05/16/24 05/17/24 23:59 23:59 23:59 Intake Total 926.35 / 1071.20 950.87 / 950.87 120 / 120 Output Total 360 / 410 270 / 270 Balance 566.35 / 661.20 680.87 / 680.87 120 / 120 Lab / Micro Data 05/16/24 05:30 05/17/24 06:05 Labs: Laboratory Results - last 24 hr 05/15/24 05:05: Diff Path Review Reviewed 05/16/24 05:30: Diff Path Review Reviewed 05/16/24 14:14: APTT 39.0 H 05/17/24 06:05: Sodium 132 L, Potassium 4.2, Chloride 100, Carbon Dioxide 24.0, Anion Gap 8, BUN 67 H, Creatinine 1.14 H, Estim Creat Clear Calc 47.58, Est GFR (MDRD) Af Amer 63, Est GFR (MDRD) Non-Af 52 L, BUN/Creatinine Ratio 58.8 H, G lucose 119 H, Calcium 9.0 Physical Exam Const alert, oriented x3 and no apparent distress Constitutional Narrative: Middle-age female, fatigued appearing, otherwise sitting up comfortably in bed, conversing normally, in no acute distress. Stable. General Appearance: cooperative and comfortable HEENT normocephalic, head/scalp atraumatic, hearing grossly normal bilaterally, nasal mucous membranes and turbinates normal and moist oral mucous membranes Eyes PERRL, EOMs intact bilaterally and conjunctivae normal Neck full ROM Chest inspection of chest normal Resp normal respiratory effort and no use of accessory muscles Resp Narrative: Mildly decreased breath sounds bilaterally, worse at right lung base. No wheezing or crackles noted. Stable. Cardio regular rate, regular rhythm, no murmurs and peripheral pulses 2+ throughout GI normal to inspection, nondistended, normoactive bowel sounds, soft to palpation, non-tender and non-distended Back/Spine normal ROM Extremity normal to inspection, full ROM and no pedal edema Skin no rashes or lesions noted Neuro moves all extremities and no focal motor deficits Speech: speech normal Psych mental status grossly normal Assessment & Plan Assessment/Plan (1) Acute pulmonary embolism: QUALIFIERS: Pulmonary embolism type: other Acute cor pulmonale presence: with acute cor pulmonale Qualified Code(s): I26.09 - Other pulmonary embolism with acute cor pulmonale (2) Hypoxia: (3) Acute kidney injury: (4) Right lower lobe lung mass: (5) Acute hypotension: (6) Generalized anxiety disorder: PLAN: Plan Patient is a 58-year-old female who presented to [facility] ED on 05/13/2024 with worsening iatrogenic right-sided pneumothorax. 1. Acute hypoxic respiratory failure with acute hypotension secondary to right segmental moderate risk PE in the setting of a recent pneumothorax and right lung adenocarcinoma with severe pulmonary hypertension Had CT-guided right lung biopsy done on 05/10 that was complicated by pneumothorax requiring chest tube placement. Was hospitalized from 05/10 to 05/13 for this. Chest tube was removed on 05/13 by surgery. Patient was hypoxic requiring up to 5 L during that hospitalization, was weaned to 2 L on discharge. She unfortunately had ongoing significant dyspnea on exertion on discharge on 05/13 and returned to the ED on the evening of 05/13. Was found on CTA chest to have a right-sided pulmonary artery emboli with associated right heart strain, along with persistent right apical pneumothorax similar to prior CT and right pleural effusion and right lower lobe consolidative airspace disease consistent with pneumonia. Echo on 05/14 showed EF 70%, moderately dilated RV with mild global RV systolic dysfunction and severe pulm hypertension with PASP 102 mmHg. Was hypotensive on admit requiring ICU admission. Case was discussed with vascular surgery, not amenable to thrombectomy given distal location of clot. Was treated with heparin drip with improvement. ? General Accounting Manager and general surgery followed. Transitioned from heparin drip to Eliquis at DVT dosing on 05/16 without issue. Blood pressure normotensive and stable on 05/16, transferred out of ICU. Treating with IV Levaquin, will plan to complete 5-day course of antibiotics total. Patient satting well on low-flow nasal cannula, notably does have home oxygen in place after recent discharge on 05/13. Was started on IV Lasix 40 mg twice daily for increased pulmonary pressures, continued through the evening of 05/16 and now spot dosing as needed. Pain control with oxycodone 5 mg every 6 hours as needed. The patient continues to improve, likely okay for home in the next 1 to 2 days. Will need close outpatient follow-up with oncology for her newly diagnosed adenocarcinoma. 2. DONALD, improving ? Was at baseline with creatinine 0.88 on 05/10. Creatinine worsened to 1.83 on 7/5, suspected prerenal etiology with some degree of ATN in setting of PE with hypotension on admit as noted above. Creatinine slowly improving, most recent 1.14 on 05/17. Has had good urine output. Continue to monitor BMP and urine output daily. 3. Anxiety ? History of generalized anxiety disorder, not on any medication. Has had significant anxiety since previous hospitalization given new cancer diagnosis and major significant complications of PE and pneumothorax as noted above. Treating with low-dose p.o. Ativan 0.5 mg up to 3 times daily as needed for now; will plan to prescribe short course of Ativan on discharge and recommended that patient follow-up with PCP for further management. 4. Mild hyponatremia, stable ? Sodium in normal range on admit, decreased to 133 on 05/15 and remaining stable 131-133. Unclear etiology. Monitor BMP daily. 5. Hyperkalemia, resolved ? Potassium 5.9 on 05/14, presumed secondary to DONALD as noted above. Resolved with IV Lasix and improving kidney function. 6. Former tobacco abuse ? Encouraged continued cessation. DVT prophylaxis: Not indicated, on therapeutic Eliquis CODE STATUS: DNR CCA, DNI Expected disposition: Home, 1 to 2 days Total clinical time spent by myself addressing the patient's medical issues, reviewing all the data, and collaborating with patient's care team: 35 minutes. Charges/Coding Visit Charges Inpatient E&M: 99880 Subs Hosp L2
--- NOTE | 2024-05-17 12:03 | CASEMGMT ---
RN CM updated that patient and significant other had questions regarding short term disability papers for work. RN CM in to room to discuss paperwork. RN CM explained that patient does not have PCP, who would normally complete paperwork. RN CM inquired if patient had been seen by Dr. Sanchez, per patient no appt had been scheduled. RN CM encourage patient and significant other to make appts for Dr Sanchez and to get established with PCP, significant other stated he would call now. Patient is established with Yesenia [facility] [employer] at [facility]. RN ROMERO called to inquire if [facility] [employer] would be willing to sign for short term disability papers. Tanja at [facility] asked [facility] [employer] and she is agreeable to sign paperwork. JOSH JASSO inquired why 05/23/24 appt was cancelled by office. Per Tanja, appt was to review test results, which was completed in the hospital. Tanja scheduled 3 month follow-up appt for 08/18/24 at 0945. JOSH JASSO updated by hospitalist that patient would benefit from HHC at discharge. RN CM explained that since patient is not setup with PCP, HHC could not be setup, hospitalist voiced understanding. RN CM in to patient's room to update regarding paperwork. RN ROMERO updated by significant other that PCP appt has been scheduled with Dr. Ko for 05/27 and is still working on Dr. Sanchez appt. Patient and significant other state that short term disability paperwork will need completed prior to PCP appt. RN CM updated patient and significant other that [facility] [employer] willing to sign paperwork and appt scheduled. RN CM encouraged significant other to take paperwork to [facility] to get paperwork signed, significant other voiced understanding. RN CM updated patient regarding HHC setup and that this will need to be completed after PCP appt, patient voiced understanding. RN CM will have therapy provide exercises to complete at home. RN CM encourage patient to getup to restroom and to sit in chair for meals to encourage activity, patient and significant other agreeable. RN CM will monitor for increased oxygen needs at discharge. Patient and significant other had no further questions or concerns CM will continue to follow this patient and plan for a safe discharge.
[2024-05-17] MEDS: Ipratropium/Albuterol Sulfate 3 ML AMPUL.NEB INHALATION (17:29)
[2024-05-17] MEDS: fentaNYL 100 MCG/2 ML Ampul 25 MCG IV (22:23)
[2024-05-18] VITALS (10 sets, daily range): BP systolic 89–100; BP diastolic 72–86; PULSE 80–90; RESP 18–28; TEMP 35.9–36.4; O2SAT 86–98; BMI 21.2
[2024-05-18] MEDS: Acetaminophen 325 MG Tablet 650 MG PO ×2 (02:11→19:31)
[2024-05-18] MEDS: Pantoprazole Sodium 40 MG Tablet PO (07:48)
[2024-05-18] MEDS: APIXABAN 5 MG TABLET 10 MG PO ×2 (07:49→23:53)
[2024-05-18] MEDS: Ensure Plus High Protein 120 ML LIQUID PO ×2 (07:50→14:15)
--- NOTE | 2024-05-18 09:39 | CASEMGMT ---
SW met with patient and her male friend. SW introduced self and role at [facility]. SW confirmed patient would like Mara Downing added to patient's contact list. SW asked relationship as this is required to put in computer. 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 SW then asked if they have a copy of Healthcare Power of Piercing Artist papers. Patient's male friend said they do. SW asked if they could be brought in that would be helpful. SW explained that as of now without the papers if something were to happen to patient and she could not make medical decisions the hospital has no legal ability to talk with him. Patient's friend said right now she is sick and we need to take care of her. Magda Gomez [employer]Y
--- NOTE | 2024-05-18 11:54 | PN.HOSP_ITS ---
Reason for Visit Reason for Visit: Diagnoses Acidosis, unspecified (05/14/24) Generalized anxiety disorder (05/14/24) Other pulmonary embolism with acute cor pulmonale (05/14/24) Other pulmonary embolism without acute cor pulmonale (05/14/24) Hypotension, unspecified (05/14/24) Pneumonia, unspecified organism (05/14/24) Acute kidney failure, unspecified (05/14/24) Shortness of breath (05/14/24) Hypoxemia (05/14/24) Other specified abnormal findings of blood chemistry (05/14/24) Other nonspecific abnormal finding of lung field (05/14/24) Subjective Subjective Saw patient at bedside this morning, significant other present. Patient was sitting up comfortably in bedside chair, in no acute distress. Patient continues to appear fatigued appearing but slightly improved from previous days. She just worked with physical therapy and states she did feel quite tired after working with them. However, she denied any significant shortness of breath and otherwise did fairly well with therapy. She was continued to have borderline low blood pressures and reported mild dizziness with going from sitting to standing. She otherwise denies any other new concerns today. Objective Data Objective Data Vital Signs: Vital Signs Temp Pulse Resp BP Pulse Ox O2 Del Method O2 Flow Rate 97.0 F L 82 20 H 99/83 H 93 Nasal Cannula 3 05/18/24 04:00 05/18/24 04:00 05/18/24 04:00 05/18/24 04:00 05/18/24 09:29 05/18/24 09:48 05/18/24 09:57 Oxygen Flow Rate (L/min) [ 2 AMBULATING with Oxygen #2] Oxygen Flow Rate (L/min) [ 3 AMBULATING with Oxygen #1] Oxygen Flow Rate (L/min) [At 2 REST with Oxygen] Oxygen Flow Rate (L/min) 3 Oxygen Delivery Method Nasal Cannula Weight: 56.1 kg Body Mass Index (BMI) 21.2 Intake & Output: Intake and Output for Last 24 Hours 05/16/24 05/17/24 05/18/24 23:59 23:59 23:59 Intake Total 950.87 / 950.87 620 / 620 200 / 200 Output Total 270 / 270 300 / 300 Balance 680.87 / 680.87 320 / 320 200 / 200 Lab / Micro Data 05/16/24 05:30 05/17/24 06:05 Physical Exam Const alert, oriented x3 and no apparent distress Constitutional Narrative: Middle-age female, fatigued appearing, otherwise sitting up comfortably in bedside chair, conversing normally, in no acute distress. Stable. General Appearance: cooperative and comfortable HEENT normocephalic, head/scalp atraumatic, hearing grossly normal bilaterally, nasal mucous membranes and turbinates normal and moist oral mucous membranes Eyes PERRL, EOMs intact bilaterally and conjunctivae normal Neck full ROM Chest inspection of chest normal Resp normal respiratory effort and no use of accessory muscles Resp Narrative: Mildly decreased breath sounds bilaterally, worse at right lung base. No wheezing or crackles noted. Stable. Cardio regular rate, regular rhythm, no murmurs and peripheral pulses 2+ throughout GI normal to inspection, nondistended, normoactive bowel sounds, soft to palpation, non-tender and non-distended Back/Spine normal ROM Extremity normal to inspection, full ROM and no pedal edema Skin no rashes or lesions noted Neuro moves all extremities and no focal motor deficits Speech: speech normal Psych mental status grossly normal Mood & Affect: anxious Assessment & Plan Assessment/Plan (1) Acute pulmonary embolism: QUALIFIERS: Pulmonary embolism type: other Acute cor pulmonale presence: with acute cor pulmonale Qualified Code(s): I26.09 - Other pulmonary embolism with acute cor pulmonale (2) Hypoxia: (3) Acute kidney injury: (4) Right lower lobe lung mass: (5) Acute hypotension: (6) Generalized anxiety disorder: PLAN: Plan Patient is a 58-year-old female who presented to [facility] ED on 05/13/2024 with worsening iatrogenic right-sided pneumothorax. 1. Acute hypoxic respiratory failure with acute hypotension secondary to right segmental moderate risk PE in the setting of a recent pneumothorax and right lung adenocarcinoma with severe pulmonary hypertension ? Had CT-guided right lung biopsy done on 05/10 that was complicated by pneumothorax requiring chest tube placement. Was hospitalized from 05/10 to 05/13 for this. General surgery followed during that hospitalization. Chest tube was removed on 05/13 by surgery. Patient was hypoxic requiring up to 5 L during that hospitalization, was weaned to 2 L on discharge. ? She unfortunately had ongoing significant dyspnea on exertion on discharge on 05/13 and returned to the ED on the evening of 7/5. Was found on CTA chest to have a right-sided pulmonary artery emboli with associated right heart strain, along with persistent right apical pneumothorax similar to prior CT and right pleural effusion and right lower lobe consolidative airspace disease consistent with pneumonia. Echo on 05/14 showed EF 70%, moderately dilated RV with mild global RV systolic dysfunction and severe pulm hypertension with PASP 102 mmHg. Was hypotensive on admit requiring ICU admission. 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 Case was discussed with vascular surgery, not amenable to thrombectomy given distal location of clot. Was treated with heparin drip with improvement. ? Was treated with heparin drip on admission with improvement. Transitioned from heparin drip to Eliquis at DVT dosing on 05/16 without issue. Will remain on Eliquis on discharge and going forward as presumed etiology of DVT/PE is her active malignancy. ? Suspected pneumonia treated with 5-day course of p.o. Levaquin, course completed. ? Patient satting well on low-flow nasal cannula during hospitalization. Home O2 ambulatory testing done on 05/18, qualified for 2 L nasal cannula with rest and exertion as she did on previous discharge. ? Notably was on IV Lasix 40 mg twice daily for first 3 days of hospitalization for increased pulmonary pressures, decreased to spot dosing on 05/17. Patient has not had borderline hypotension with mild orthostatic symptoms holding on further dosing of Lasix and can consider mild IV fluid resuscitation as needed along with encouraging p.o. intake. ? Continue pain control with oxycodone 5 mg every 6 hours as needed. Will plan to provide patient with short course of oxycodone on discharge. ? Patient approaching being medically ready for discharge. Tentatively planning for discharge home with home health care tomorrow. Will need close outpatient follow-up with oncology for newly diagnosed adenocarcinoma. 2. DONALD, improving ? Was at baseline with creatinine 0.88 on 05/10. Creatinine worsened to 1.83 on 05/13, suspected prerenal etiology with some degree of ATN in setting of PE with hypotension on admit as noted above. Creatinine improving and essentially back to baseline by 05/17 and patient with good urine output, no need to monitor further BMPs while inpatient. 3. Anxiety ? History of generalized anxiety disorder, not on any medication. Has had significant anxiety since previous hospitalization given new cancer diagnosis and major significant complications of PE and pneumothorax as noted above. Treating with low-dose p.o. Ativan 0.5 mg up to 3 times daily as needed for now; will plan to prescribe short course of Ativan on discharge and recommended that patient follow-up with PCP for further management. 4. Mild hyponatremia, stable ? Sodium in normal range on admit, decreased to 133 on 05/15 and remaining stable 131-133. Unclear etiology. Stable, no need to monitor further BMPs during hospitalization. 5. Hyperkalemia, resolved ? Potassium 5.9 on 05/14, presumed secondary to DONALD as noted above. Resolved with IV Lasix and improving kidney function. 6. Former tobacco abuse ? Encouraged continued cessation. DVT prophylaxis: Not indicated, on therapeutic Eliquis CODE STATUS: DNR CCA, DNI Expected disposition: Home, 1 to 2 days Total clinical time spent by myself addressing the patient's medical issues, reviewing all the data, and collaborating with patient's care team: 35 minutes. Charges/Coding Visit Charges Inpatient E&M: 46437 Subs Hosp L2
[2024-05-18] MEDS: LORazepam 0.5 MG Tablet PO (14:14)
[2024-05-18] MEDS: fentaNYL 100 MCG/2 ML Ampul 25 MCG IV (23:53)
[2024-05-18] MEDS: levoFLOXacin 750 MG Tablet PO (23:53)
[2024-05-18] MEDS: 0.9% Saline Lock 10 ML Syringe IV (23:54)
[2024-05-19] VITALS (12 sets, daily range): BP systolic 81–102; BP diastolic 65–80; PULSE 73–95; RESP 18–22; TEMP 35.9–36.7; O2SAT 85–99; BMI 21.3
[2024-05-19] MEDS: APIXABAN 5 MG TABLET 10 MG PO (09:23)
[2024-05-19] MEDS: Pantoprazole Sodium 40 MG Tablet PO (09:23)
[2024-05-19] MEDS: Ensure Plus High Protein 120 ML LIQUID PO (09:23)
--- NOTE | 2024-05-19 10:53 | DCINST_ITS ---
Discharge Instructions Follow Up Care Test Results: Test results from this visit will be discussed in further detail at your follow- up appointment, if applicable. Discharge Plan Admission Admit Date/Time: 05/14/24 01:20 Attending Provider: Hu Pratt Primary Care Provider: Care Physician,No Primary Consulting Providers: Saul Blood; Nile Jones; Caleb Castillo Discharge Orders/Prescriptions Prescriptions: No Action ibuprofen 200 mg tablet 400 mg PO Q6H PRN (Reason: FEVER/PAIN ) albuterol sulfate [Ventolin HFA] 90 mcg/actuation HFA aerosol inhaler 2 puff inhalation Q4H PRN (Reason: SHORTNESS OF BREATH/WHEEZING ) Qty: 18 6RF prednisone 10 mg tablet See Taper PO DAILY Taper: Prednisone Taper 40 mg WITH BREAKFAST for 3 Days 30 mg WITH BREAKFAST for 3 Days 20 mg WITH BREAKFAST for 3 Days 10 mg WITH BREAKFAST for 3 Days Rx Instructions: START DATE: 05/06/24 levofloxacin 750 mg tablet 750 mg PO Q24H Rx Instructions: START DATE: 05/07/24 oxycodone 5 mg Tablet 5 mg PO Q4H PRN PRN (Reason: Pain Score 4-10) 3 Days Qty: 10 0RF Referrals / Follow Up: Care Physician,No Primary [Primary Care Provider] -
--- NOTE | 2024-05-19 10:53 | PCM.DC.SUM ---
Providers Date of Admission: 05/14/24 Date of Discharge: 05/19/24 Primary Care Physician: No Primary Care Phys Consultations 05/14/24 06:43 Consult: Vascular Surgery Routine Consulting Provider: Caleb Castillo Reason for Consult: Large Right PE with known Lung CA, PNA and Right Heart Strain. EMERGENT Consult: No MD Notified: Yes Date Notified: 05/14/24 Time Notified: 06:44 Method of Notification: Verbal Reason For Visit: LARGE RIGHT PE WITH ELEVATED TROPONIN & SUSPECTED Diagnosis Discharge Diagnosis (1) Acute pulmonary embolism: Status: Acute Code(s): I26.99 - Other pulmonary embolism without acute cor pulmonale Qualifiers: Acute cor pulmonale presence: with acute cor pulmonale Pulmonary embolism type: other Qualified Code(s): I26.09 - Other pulmonary embolism with acute cor pulmonale (2) Hypoxia: Status: Acute Code(s): R09.02 - Hypoxemia (3) Acute kidney injury: Status: Acute Code(s): N17.9 - Acute kidney failure, unspecified (4) Right lower lobe lung mass: Status: Acute Code(s): R91.8 - Other nonspecific abnormal finding of lung field (5) Acute hypotension: Status: Acute Code(s): I95.9 - Hypotension, unspecified (6) Generalized anxiety disorder: Status: Acute Code(s): F41.1 - Generalized anxiety disorder Medications at Discharge Home Medications albuterol sulfate 90 mcg/actuation aerosol inhaler (Ventolin HFA) 2 puff inhalation Q4H PRN SHORTNESS OF BREATH/WHEEZING #18 grams 05/06/24 apixaban 5 mg tablet (Eliquis) See Taper PO BID #66 tabs 05/19/24 lorazepam 0.5 mg tablet (Ativan) 0.5 mg PO TID PRN anxiety 7 days #20 tabs 05/19/24 oxycodone 5 mg tablet 5 mg PO Q6H PRN pain 5 days #10 tabs 05/19/24 pantoprazole 40 mg tablet,delayed release (Protonix) 40 mg PO DAILY 30 days #30 tabs 05/19/24 Hospital Course Operations None Procedures EKG, Transthoracic echo and - (Chest x-ray x 2, CTA chest) Summary of Care Provided Minutes Spent on Discharge: 35 Hospital Course: Patient is a 58-year-old female who presented to [facility] ED on 05/13/2024 with worsening shortness of breath on exertion. Hospital course as noted below. Discharged home in stable condition on 05/19. 1. Acute hypoxic respiratory failure with acute hypotension secondary to right segmental moderate risk PE in the setting of a recent pneumothorax and right lung adenocarcinoma with severe pulmonary hypertension ? Had CT-guided right lung biopsy done on 05/10 that was complicated by pneumothorax requiring chest tube placement. Was hospitalized from 05/10 to 05/13 for this. General surgery followed during that hospitalization. Chest tube was removed on 05/13 by surgery. Patient was hypoxic requiring up to 5 L during that hospitalization, was weaned to 2 L on discharge. ? She unfortunately had ongoing significant dyspnea on exertion on discharge on 05/13 and returned to the ED on the evening of 05/13. Was found on CTA chest to have a right-sided pulmonary artery emboli with associated right heart strain, along with persistent right apical pneumothorax similar to prior CT and right pleural effusion and right lower lobe consolidative airspace disease consistent with pneumonia. Echo on 05/14 showed EF 70%, moderately dilated RV with mild global RV systolic dysfunction and severe pulm hypertension with PASP 102 mmHg. Was hypotensive on admit requiring ICU admission. 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 Case was discussed with vascular surgery, not amenable to thrombectomy given distal location of clot. Was treated with heparin drip with improvement. ? Was treated with heparin drip on admission with improvement. Transitioned from heparin drip to Eliquis at DVT dosing on 05/16 without issue. Will remain on Eliquis on discharge and going forward as presumed etiology of DVT/PE is her active malignancy. ? Suspected pneumonia treated with 5-day course of p.o. Levaquin, course completed. ? Patient satting well on low-flow nasal cannula during hospitalization. Home O2 ambulatory testing done on 05/18, qualified for 2 L nasal cannula with rest and exertion as she did on previous discharge. ? Notably was on IV Lasix 40 mg twice daily for first 3 days of hospitalization for increased pulmonary pressures, decreased to spot dosing on 05/17 and did not require any further doses prior to discharge. ? Continue pain control with oxycodone 5 mg every 6 hours as needed. Provided patient with short course of oxycodone as needed on discharge. ? Medically ready for discharge on 05/19. Will need close outpatient follow-up with oncology for newly diagnosed adenocarcinoma. 2. DONALD, resolved ? Was at baseline with creatinine 0.88 on 05/10. Creatinine worsened to 1.83 on 05/13, suspected prerenal etiology with some degree of ATN in setting of PE with hypotension on admit as noted above. Creatinine improving and essentially back to baseline by 05/17 and patient with good urine output, no need to monitor further BMPs while inpatient. 3. Anxiety ? History of generalized anxiety disorder, not on any medication. Has had significant anxiety since previous hospitalization given new cancer diagnosis and major significant complications of PE and pneumothorax as noted above. Treated with low-dose p.o. Ativan 0.5 mg up to 3 times daily as needed while inpatient with good control of symptoms, prescribe short course on discharge and recommended follow-up with PCP for further management. 4. Mild hyponatremia, stable ? Sodium in normal range on admit, decreased to 133 on 05/15 and remaining stable 131-133. Unclear etiology. Stable, no need to monitor further BMPs during hospitalization. 5. Hyperkalemia, resolved ? Potassium 5.9 on 05/14, presumed secondary to DONALD as noted above. Resolved with IV Lasix and improving kidney function. 6. Former tobacco abuse ? Encouraged continued cessation. Total clinical time spent by myself addressing the patient's medical issues, reviewing all the data, and collaborating with patient's care team: 35 minutes. Physical Exam Const alert, oriented x3 and no apparent distress Constitutional Narrative: Middle-age female, fatigued appearing, otherwise sitting up comfortably in bedside chair, conversing normally, in no acute distress. Stable. General Appearance: cooperative and comfortable HEENT normocephalic, head/scalp atraumatic, hearing grossly normal bilaterally, nasal mucous membranes and turbinates normal and moist oral mucous membranes Eyes PERRL, EOMs intact bilaterally and conjunctivae normal Neck full ROM Chest inspection of chest normal Resp normal respiratory effort and no use of accessory muscles Resp Narrative: Mildly decreased breath sounds bilaterally, worse at right lung base. No wheezing or crackles noted. Stable. Cardio regular rate, regular rhythm, no murmurs and peripheral pulses 2+ throughout GI normal to inspection, nondistended, normoactive bowel sounds, soft to palpation, non-tender and non-distended Back/Spine normal ROM Extremity normal to inspection, full ROM and no pedal edema Skin no rashes or lesions noted Neuro moves all extremities and no focal motor deficits Speech: speech normal Psych mental status grossly normal Mood & Affect: anxious Weight / BMI Weight Weight: 56.3 kg Body Mass Index (BMI) 21.3 ABG / Lab / Microbiology Data 05/16/24 05:30 05/17/24 06:05 Meaningful Use Info Meaningful Use Meaningful Use Diagnoses (Choose all that apply): VTE Ischemic Stroke Statin Dosing Therapy Reference: STATIN DOSE THERAPY REFERENCE: * Patients > 75 years receive moderate or high dose statin therapy. * Patients 75 years or YOUNGER should receive HIGH intensity statin dose unless contraindicated. You will be required to document reason for non-treatment if statin daily dose does not meet guidelines. HIGH DOSE STATIN THERAPY DAILY Atorvastatin > than or = to 40 mg Rosuvastatin > than or = to 20 mg Amlodipine + Atorvastatin > than or = to 2.5/40 mg Ezetimibe + Simvastatin 10/80 mg Simvastatin 80mg VTE Anticoag overlap given w/in hospital stay or rx'd at dc?: No Pt receive overlap for 5 days?: No Reason overlap not ordered, prescribed, or given for 5 days: Treatment Not Indicated Discharge Plan Admission Admit Date/Time: 05/14/24 01:20 Primary Reason for Your Visit: Worsening shortness of breath Attending Provider: Hu Pratt Primary Care Provider: Care Physician,No Primary Consulting Providers: Saul Blood; Nile Jones; Caleb Castillo Instructions Additional Instructions / Restrictions: Please take new medications as instructed below. Follow-up with Dr. Sanchez as scheduled. Discharge Orders/Prescriptions Prescriptions: New oxycodone 5 mg tablet 5 mg PO Q6H PRN (Reason: pain) 5 Days Qty: 10 0RF lorazepam [Ativan] 0.5 mg tablet 0.5 mg PO TID PRN (Reason: anxiety) 7 Days Qty: 20 0RF pantoprazole [Protonix] 40 mg tablet,delayed release (DR/EC) 40 mg PO DAILY 30 Days Qty: 30 2RF Eliquis 5 mg tablet See Taper PO BID Qty: 66 0RF Taper: Apixaban VTE Treatment 10 mg TWICE A DAY for 3 Days 5 mg TWICE A DAY for 30 Days Continued albuterol sulfate [Ventolin HFA] 90 mcg/actuation HFA aerosol inhaler 2 puff inhalation Q4H PRN (Reason: SHORTNESS OF BREATH/WHEEZING ) Qty: 18 6RF Discontinued ibuprofen 200 mg tablet 400 mg PO Q6H PRN (Reason: FEVER/PAIN ) prednisone 10 mg tablet See Taper PO DAILY Taper: Prednisone Taper 40 mg WITH BREAKFAST for 3 Days 30 mg WITH BREAKFAST for 3 Days 20 mg WITH BREAKFAST for 3 Days 10 mg WITH BREAKFAST for 3 Days Rx Instructions: START DATE: 05/06/24 levofloxacin 750 mg tablet 750 mg PO Q24H Rx Instructions: START DATE: 05/07/24 oxycodone 5 mg Tablet 5 mg PO Q4H PRN PRN (Reason: Pain Score 4-10) 3 Days Qty: 10 0RF Referrals / Follow Up: Care Physician,No Primary [Primary Care Provider] - Disposition Disposition (needs filled in before D/C Order can be placed): Home, Self Care Charges/Coding Visit Charges Inpatient E&M: 35948 Disch Hosp >30min
--- NOTE | 2024-05-19 12:10 | CASEMGMT ---
Discharge order in, RN notified CM pt needs a walker at [facility]. JOSH JASSO noted Eliquis medication order sent to [facility]. RN ROMERO into pt room to discuss walker needs, pt significant other in room and states he already got her a wheeled walker and a rollator. Discussed Eliquis with patient and [facility]. Pt also stated they need [facility] to swap out their portable O2 tank. Pt stated been trying to call [facility] because portable tank is empty and need a new one. Informed pt JOSH JASSO will call [facility]. JOSH JASSO [place] [facility]ora stated she will be up to change out portable tank. JOSH JASSO called [facility] for page check. [facility] stated they do not have an updated Rx card on file and cost will be $670 for Eliquis. JOSH JASSO provided pharmacy with information on file, [facility] stated the card August 08, 2023. Informed pt [facility] needs updated Rx card, provided Eliquis savings cards to pt. Informed Pt Nora from [facility] [place] to [place] O2 tank. Pt denies any further needs at this time. Pt denies any questions or concerns.
[2024-05-19] MEDS: Acetaminophen 325 MG Tablet 650 MG PO (13:16)
[2024-05-19] MEDS: oxyCODONE 5 MG Tablet PO (13:16)
--- NOTE | 2024-05-19 14:49 | PHA.DC_ITS ---
Pharmacy [facility] has performed discharge medication reconciliation and counseling for this patient. The patient's discharge medication list was reviewed for discrepancies and discrepancies were resolved. The patient was counseled on the following discharge medications and changes in medications for homegoing were reviewed. 1. ELIQUIS 2. PROTONIX 3. ATIVAN 4. OXYCODONE The Reason for Use, instructions for use, and potential side effects were reviewed for all new medications. The patient's questions regarding all of their medications were answered. The patient was able to verbally demonstrate an understanding of their discharge medications. the patient was counselled by Kanu Nolasco PharmD Candidate Medications at Discharge Home Medications albuterol sulfate 90 mcg/actuation aerosol inhaler (Ventolin HFA) 2 puff inhalation Q4H PRN SHORTNESS OF BREATH/WHEEZING #18 grams 05/06/24 apixaban 5 mg tablet (Eliquis) 5 mg PO BID 30 days #66 tabs 05/19/24 lorazepam 0.5 mg tablet (Ativan) 0.5 mg PO TID PRN anxiety 7 days #20 tabs 05/19/24 oxycodone 5 mg tablet 5 mg PO Q6H PRN pain 5 days #10 tabs 05/19/24 pantoprazole 40 mg tablet,delayed release (Protonix) 40 mg PO DAILY 30 days #30 tabs 05/19/24
== END 2024-05-19 14:12 | disposition home or self-care (01) | DRG 175 ==
LOC: ED 23:02 → ICU 05-14 01:35 → PCU 05-16 11:22
PROVIDERS: Family Medicine; Physician Assistant; Admitting Provider Internal Medicine; Emergency Provider Emergency Medicine; Visit Provider Hospitalist
DX: I26.09 Other pulmonary embolism with acute cor pulmonale (principal); J96.01 Acute respiratory failure with hypoxia; N17.0 Acute kidney failure with tubular necrosis; J18.9 Pneumonia, unspecified organism; E87.20 Acidosis, unspecified; E87.1 Hypo-osmolality and hyponatremia; J44.0 Chronic obstructive pulmonary disease with (acute) lower respiratory infection; C34.31 Malignant neoplasm of lower lobe, right bronchus or lung; J90 Pleural effusion, not elsewhere classified; I27.20 Pulmonary hypertension, unspecified; I95.9 Hypotension, unspecified; E87.5 Hyperkalemia; F41.1 Generalized anxiety disorder; R79.89 Other specified abnormal findings of blood chemistry; Z87.891 Personal history of nicotine dependence; Z66 Do not resuscitate; R91.8 Other nonspecific abnormal finding of lung field
CPT/HCPCS: 36415; 36600; 71045; 71046; 71275; 80048; 80053; 80076; 82803; 83605; 83735; 84100; 84443; 84484; 85025; 85610; 85730; 93005; 93306; 94640; 94668; 94762; 97116; 97162; 97166; 97530; 97535; 97802; 99284; J7030; Q9967; A4216; J1940; J2405